=== PATIENT | male | born 1955 ===

== ENCOUNTER 2017-06-06 07:26 | Day surgery (SDC) | payer MEDICARE ==
[2017-06-06] MEDS ORDERED: Lactated Ringer's 500 ML IV ONE (07:59)
[2017-06-06] MEDS ORDERED: Propofol 10 mg/ml Inj (20 ML) ONE (09:30)
[2017-06-06 10:16] VITALS: BP 100/70; PULSE 69; RESP 15; TEMP 96.4; O2SAT 99
== END 2017-06-06 11:00 | disposition home or self-care (01) ==
LOC: H.ENDO 07:26
PROVIDERS: ATTEND Internal Medicine Gastroenterology
DX: K74.60 Unspecified cirrhosis of liver (principal); I85.11 Secondary esophageal varices with bleeding; K31.9 Disease of stomach and duodenum, unspecified; K26.9 Duodenal ulcer, unspecified as acute or chronic, without hemorrhage or perforation
CPT/HCPCS: 43235; J2001; J2704; J3010; J7120

== ENCOUNTER 2017-09-04 10:29 | Inpatient (IN) | payer MEDICARE, OTHER ==
[2017-09-04 10:36] VITALS: BMI 22.8
[2017-09-04] MEDS ORDERED: Iohexol 240 (50 ml) PO ONE (11:12)
[2017-09-04] MEDS ORDERED: Iohexol 240 (50 ml) ONE (11:27)
[2017-09-04] MEDS ORDERED: Sodium Chloride 0.9% 1,000 ML IV ONE (11:34)
--- NOTE | 2017-09-04 11:34 | ED PDOC ---
HPI: Abdomen Time Seen by Provider: 09/04/17 10:52 Chief Complaint (Nursing): Abdominal Pain History Per: Patient History/Exam Limitations: no limitations Onset/Duration Of Symptoms: Days (6), Gradual Current Symptoms Are (Timing): Still Present Severity: Moderate Location Of Pain/Discomfort: Diffuse Quality Of Discomfort: Dull, Aching Associated Symptoms: Fever, Nausea, Vomiting, Diarrhea. denies: Chills, Back Pain, Chest Pain, Constipation, Urinary Symptoms Exacerbating Factors: None Alleviating Factors: None Additional History Per: Patient Additional Complaint(s): C/o generalized abdl pain w/ vomiting and diarrhea x 6 days Past Medical History Reviewed: Historical Data, Nursing Documentation, Vital Signs Vital Signs: Last Vital Signs Temp 100 F H 09/04/17 10:53 Pulse 121 H 09/04/17 10:53 Resp 16 09/04/17 10:53 BP 112/77 09/04/17 10:53 Pulse Ox 96 09/04/17 13:53 - Medical History PMH: Depression, HIV Denies: Chronic Kidney Disease - Surgical History Surgical History: Endoscopy - Family History Family History: States: Unknown Family Hx - Living Arrangements Living Arrangements: With Family - Social History Current smoker - smoking cessation education provided: No - Home Medications Home Medications: Ambulatory Orders Medication Instructions Recorded Atovaquone [Mepron] 750 mg PO DAILY 06/06/17 Clonazepam [Klonopin] 1 mg PO DAILY 06/06/17 Darunavir Ethanolate [Prezista] 600 mg PO DAILY 06/06/17 Emtricitabine/Tenofovir Diso 1 tab PO DAILY 06/06/17 [Truvada 200 MG-300 MG] Escitalopram [Lexapro] 10 mg PO DAILY 06/06/17 Mirtazapine [Remeron Soltab] 45 mg PO DAILY 06/06/17 QUEtiapine [SEROquel XR] 150 mg PO DAILY 06/06/17 Ritonavir [Norvir] 100 mg PO DAILY 06/06/17 - Allergies Allergies/Adverse Reactions: Allergies Allergy/AdvReac Type Severity Reaction Status Date / Time No Known Allergies Allergy Verified 09/04/17 10:53 Review of Systems ROS Statement: Except As Marked, All Systems Reviewed And Found Negative Constitutional: Negative for: Fever, Chills Cardiovascular: Negative for: Chest Pain, Palpitations Respiratory: Negative for: Cough, Shortness of Breath Gastrointestinal: Positive for: Nausea, Vomiting, Abdominal Pain, Diarrhea. Negative for: Constipation, Melena, Hematochezia, Hematemesis Genitourinary Male: Negative for: Dysuria Skin: Negative for: Rash Neurological: Negative for: Weakness, Numbness Physical Exam - Reviewed Nursing Documentation Reviewed: Yes Vital Signs Reviewed: Yes - Physical Exam Appears: Positive for: Uncomfortable Head Exam: Positive for: ATRAUMATIC, NORMAL INSPECTION, NORMOCEPHALIC Eye Exam: Positive for: Normal appearance, EOMI, PERRL ENT: Positive for: Pharynx Is (clear,mmm). Negative for: Pharyngeal Erythema, Tonsillar Exudate Neck: Positive for: Normal, Painless ROM, Supple. Negative for: Decreased ROM, Limited ROM, Trachea Midline Cardiovascular/Chest: Positive for: Chest Non Tender, Tachycardia. Negative for : Edema, Gallop, Murmur, Bradycardia Respiratory: Positive for: Normal Breath Sounds. Negative for: Decreased Breath Sounds, Accessory Muscle Use, Crackles, Rales, Rhonchi, Stridor, Wheezing , Respiratory Distress Pulses-Radial (L): 2+ Pulses-Radial (R): 2+ Gastrointestinal/Abdominal: Positive for: Normal Exam, Bowel Sounds, Soft, Tenderness (mild diffuse). Negative for: Distended, Guarding, Rebound, Hernia, Asicites Male Genital Exam: Positive for: normal genitalia, normal prostate, other (chap by tech). Negative for: scrotum tenderness (R), scrotum tenderness (L), testicular tenderness (R), testicular tenderness (L) Back: Positive for: Normal Inspection. Negative for: L CVA Tenderness, R CVA Tenderness Extremity: Positive for: Normal ROM. Negative for: Tenderness, Pedal Edema Neurologic/Psych: Positive for: Alert, negative assembler II-XII, Oriented. Negative for: Motor/Sensory Deficits - Laboratory Results Result Diagrams: 09/04/17 11:37 09/04/17 11:37 - ECG ECG: Positive for: Interpreted By In ECG Rhythm: Positive for: Normal QRS, Normal ST Segment, Sinus Rhythm. Negative for: ST/T Changes Interpretation Of Abn EKG: no evidence of ischemia O2 Sat by Pulse Oximetry: 96 Pulse Ox Interpretation: Normal - Radiology X-Ray: Interpreted by In X-Ray Interpretation: No Acute Disease - Progress ED Course And Treament: PROCEDURE: CT scan abdomen and pelvis dated 09/04/2017 HISTORY: Diffuse abdominal pain and diarrhea COMPARISON: Comparison made with prior CT scan abdomen pelvis dated 06/06/2013. Correlation also made with prior abdominal ultrasound dated 04/05/2016 TECHNIQUE: Contiguous axial images of the abdomen and pelvis performed following oral contrast administration. IV contrast not administered per request on the. The study is therefore somewhat limited. . Coronal and Sagittal reformats generated. Radiation dose: Total exam DLP = 827.73 mGy-cm. This CT exam was performed using one or more of the following dose reduction techniques: Automated exposure control, adjustment of the mA and/or kV according to patient size, and/or use of iterative reconstruction technique. FINDINGS: LOWER THORAX: Unremarkable. LIVER: The liver exhibits normal size measuring approximately 15 cm in CC dimension. . The liver exhibits a slight nodular surface contour. ; rule out cirrhosis No definitive hepatic masses collections or calcifications seen on this noncontrast exam. GALLBLADDER AND BILE DUCTS: Gallbladder is physiologically distended. Tiny intraluminal gallbladder calculus. No pericholecystic fluid collections. PANCREAS: The pancreas appears slightly atrophic and fatty replaced. SPLEEN: Spleen remains massively enlarged measuring approximately 24cm cc x 16.5cm ap x 9.6cm t.. No obvious splenic mass collection or calcification. Clinic correlation with laboratory values recommended. . Numerous varices are seen within the upper abdomen adjacent to the stomach spleen and kidney. Findings are consistent with portal hypertension. Rule out cirrhosis. ADRENALS: There are no adrenal lesions. KIDNEYS AND URETERS: Kidneys demonstrate relatively symmetric size. No evidence of nephrolithiasis or hydronephrosis. . Mild non nonspecific infiltration changes seen in the perinephric fat. BLADDER: Urinary bladder is incompletely distended which may account for slight thick- walled appearance. Muscular hypertrophy presumably contributes. REPRODUCTIVE: The prostate gland measures approximately 3.7 cm in transverse dimension. Seminal vesicles unremarkable. APPENDIX: Normal-appearing appendix best seen on coronal sequence image number [id number]. No periappendiceal inflammatory changes. BOWEL: Evaluation of the bowel is somewhat limited due to incomplete opacification. As mentioned above, there is a moderate size hiatal hernia. Wall thickening of the distal esophagus that is likely due to protrusion gastric mucosa however possibility of esophagitis or other intrinsic/invasive wall lesion cannot be excluded. . Clinical correlation recommended. The visualized loops of small bowel exhibit normal contour and caliber. Note is made of fecalized content within the small bowel; rule out sequela of chronic constipation. . No evidence of acute mechanical small bowel obstruction with oral contrast material seen seen extending into the colon to the level of the rectosigmoid. . Name. There is narrowing of the distal descending colon and sigmoid colon with relative paucity of haustrations (pipe like configuration). Rule out sequela of chronic colitis. PERITONEUM: No evidence of of discrete loculated fluid collections. No free fluid or free intraperitoneal air seen. LYMPH NODES: There appear to be multiple small nonspecific retroperitoneal lymph nodes. Note that scattered lymph nodes in the upper abdomen cannot be completely excluded given the exuberant varices are present. VASCULATURE: No evidence of abdominal aortic or iliac artery aneurysm so far as can be seen. See above discussion for additional findings. BONES: Re- demonstrated are chronic appearing superior endplate deformities of the T10 , T12 and to a lesser degree T11 segments essentially unchanged allowing for differences patient positioning and slice placement technique. Minor multilevel degenerative spondylosis of the lower thoracic and lumbar spine. . Re- demonstrated is a sclerotic lesion within the right acetabulum unchanged ; which probably represents a bone island or osteoma OTHER FINDINGS: None. IMPRESSION: Re- demonstrated is massively enlarged spleen with what appears represent exuberant numerous varices in the upper abdomen. The liver exhibits a nodular surface contour. Collective findings are consistent with cirrhosis and portal hypertension however clinical correlation recommended to confirm. Cholelithiasis. Type slight narrowing of the distal descending and sigmoid colon; rule out sequela of chronic colitis. There is also fecalized small bowel content; findings may represent sequela of chronic constipation. Moderately large hiatal hernia with wall thickening of the distal esophagus likely due to protrusion of gastric mucosa however the possibility of esophagitis or other intrinsic/invasive wall lesion not excluded. Urinary bladder wall is somewhat thickened likely due to incomplete distention and muscular hypertrophy. Correlation with urinalysis recommended to exclude other pathology. Re-evaluation Time: 13:53 Condition: Improved Disposition - Clinical Impression Clinical Impression: Cholecystitis, Peritonitis, Thrombocytopenia - Patient ED Disposition Is Patient to be Admitted: No Counseled Patient/Family Regarding: Studies Performed, Diagnosis - Disposition Disposition Time: 13:00 Condition: STABLE Forms: [employer] (Mexican) - Pt Status Changed To: Hospital Disposition Of: Inpatient - Admit Certification Admit to Inpatient:: After my assessment, the patient will require hospitalization for at least two midnights. This is because of the severity of symptoms shown, intensity of services needed, and/or the medical risk in this patient being treated as an outpatient. - POA Present On Arrival: None
[2017-09-04 11:42] LABS: BASO % 0.2 % (0.0-2.0); EOS % 0.7 % (0.0-4.0); HEMATOCRIT 34.1 % (35.0-51.0); LYMPH # 0.5 K/uL (1.0-4.3); LYMPH % 16.6 % (20.0-40.0); MEAN CELL VOLUME 76.1 fl (80.0-94.0); MEAN CORPUSCULAR HEMOGLOBIN 24.8 pg (27.0-31.0); MEAN CORPUSCULAR HGB CONC 32.6 g/dL (33.0-37.0); MEAN PLATELET VOLUME 9.5 fl (7.2-11.7); MONO # 0.3 K/uL (0.0-0.8); MONO % 10.8 % (0.0-10.0); NEUT # 2.1 K/uL (1.8-7.0); NEUT % 71.7 % (50.0-75.0); NRBC % 0.1 % (0.0-0.0); RED CELL DISTRIBUTION WIDTH 16.6 % (11.5-14.5); WHITE BLOOD COUNT 2.9 K/uL (4.8-10.8)
[2017-09-04 11:56] LABS: ALKALINE PHOSPHATASE 77 U/L (38-126); ALT/SGPT 40 U/L (21-72); AMYLASE 212 U/L (30-110); AST/SGOT 41 U/L (17-59); BILIRUBIN,TOTAL 1.3 mg/dl (0.2-1.3); BLOOD UREA NITROGEN 24 mg/dl (9-20); CALCIUM 8.1 mg/dL (8.4-10.2); CARBON DIOXIDE 23 mmol/L (22-30); CHLORIDE 106 mmol/L (98-107); GFR AFRICAN-AMERICAN > 60; GLUCOSE,RANDOM 123 mg/dL (75-110); LIPASE 322 U/L (23-300); POTASSIUM 4.4 MMOL/L (3.6-5.0); SODIUM 139 mmol/l (132-148); TOTAL PROTEIN 8.2 G/DL (6.3-8.2)
[2017-09-04 12:06] LABS: ALB/GLOB RATIO 0.7 (1.0-2.1)
[2017-09-04 12:27] LABS: RBC URINE 113 /hpf (0-3); URINE BACTERIA MOD (<OCC); URINE BILIRUBIN NEGATIVE (NEGATIVE); URINE BLOOD LARGE (NEGATIVE); URINE COLOR AMBER (YELLOW); URINE GLUCOSE (UA) NEG (Normal); URINE KETONE NEGATIVE (NEGATIVE); URINE LEUKOCYTE ESTERASE LARGE Leu/uL (Negative); URINE PROTEIN 100 mg/dL (NEGATIVE); URINE UROBILINOGEN 0.2-1.0 mg/dL (0.2-1.0); WBC URINE 1987 /hpf (0-5)
[2017-09-04] MEDS ORDERED: Piperacillin/Tazobact 3.375 GM in Sodium Chloride 0.9% 100 ML IVPB STA (12:36)
--- NOTE | 2017-09-04 12:51 | RAD ---
PROCEDURE: CHEST RADIOGRAPH, 1 VIEW HISTORY: fever COMPARISON: 03/07/2017 FINDINGS: LUNGS: Clear. PLEURA: No pneumothorax or pleural fluid seen. CARDIOVASCULAR: No radiographic findings to suggest acute or significant cardiovascular disease. OSSEOUS STRUCTURES: No significant abnormalities. VISUALIZED UPPER ABDOMEN: Normal. OTHER FINDINGS: None. IMPRESSION: No active disease. No acute/significant interval changes. Concordant results with the preliminary interpretation rendered by the emergency department physician procedure.
--- NOTE | 2017-09-04 13:36 | CT ---
PROCEDURE: CT scan abdomen and pelvis dated 09/04/2017 HISTORY: Diffuse abdominal pain and diarrhea COMPARISON: Comparison made with prior CT scan abdomen pelvis dated 06/06/2013. Correlation also made with prior abdominal ultrasound dated 04/05/2016 TECHNIQUE: Contiguous axial images of the abdomen and pelvis performed following oral contrast administration. IV contrast not administered per request on the. The study is therefore somewhat limited. . Coronal and Sagittal reformats generated. Radiation dose: Total exam DLP = 827.73 mGy-cm. This CT exam was performed using one or more of the following dose reduction techniques: Automated exposure control, adjustment of the mA and/or kV according to patient size, and/or use of iterative reconstruction technique. FINDINGS: LOWER THORAX: Unremarkable. LIVER: The liver exhibits normal size measuring approximately 15 cm in CC dimension. . The liver exhibits a slight nodular surface contour. ; rule out cirrhosis No definitive hepatic masses collections or calcifications seen on this noncontrast exam. GALLBLADDER AND BILE DUCTS: Gallbladder is physiologically distended. Tiny intraluminal gallbladder calculus. No pericholecystic fluid collections. PANCREAS: The pancreas appears slightly atrophic and fatty replaced. SPLEEN: Spleen remains massively enlarged measuring approximately 24cm cc x 16.5cm ap x 9.6cm t.. No obvious splenic mass collection or calcification. Clinic correlation with laboratory values recommended. . Numerous varices are seen within the upper abdomen adjacent to the stomach spleen and kidney. Findings are consistent with portal hypertension. Rule out cirrhosis. ADRENALS: There are no adrenal lesions. KIDNEYS AND URETERS: Kidneys demonstrate relatively symmetric size. No evidence of nephrolithiasis or hydronephrosis. . Mild non nonspecific infiltration changes seen in the perinephric fat. BLADDER: Urinary bladder is incompletely distended which may account for slight thick-walled appearance. Muscular hypertrophy presumably contributes. REPRODUCTIVE: The prostate gland measures approximately 3.7 cm in transverse dimension. Seminal vesicles unremarkable. APPENDIX: Normal-appearing appendix best seen on coronal sequence image number [id number]. No periappendiceal inflammatory changes. BOWEL: Evaluation of the bowel is somewhat limited due to incomplete opacification. As mentioned above, there is a moderate size hiatal hernia. Wall thickening of the distal esophagus that is likely due to protrusion gastric mucosa however possibility of esophagitis or other intrinsic/invasive wall lesion cannot be excluded. . Clinical correlation recommended. The visualized loops of small bowel exhibit normal contour and caliber. Note is made of fecalized content within the small bowel; rule out sequela of chronic constipation. . No evidence of acute mechanical small bowel obstruction with oral contrast material seen seen extending into the colon to the level of the rectosigmoid. . Name. There is narrowing of the distal descending colon and sigmoid colon with relative paucity of haustrations (pipe like configuration). Rule out sequela of chronic colitis. PERITONEUM: No evidence of of discrete loculated fluid collections. No free fluid or free intraperitoneal air seen. LYMPH NODES: There appear to be multiple small nonspecific retroperitoneal lymph nodes. Note that scattered lymph nodes in the upper abdomen cannot be completely excluded given the exuberant varices are present. VASCULATURE: No evidence of abdominal aortic or iliac artery aneurysm so far as can be seen. See above discussion for additional findings. BONES: Re- demonstrated are chronic appearing superior endplate deformities of the T10, T12 and to a lesser degree T11 segments essentially unchanged allowing for differences patient positioning and slice placement technique. Minor multilevel degenerative spondylosis of the lower thoracic and lumbar spine. . Re- demonstrated is a sclerotic lesion within the right acetabulum unchanged ; which probably represents a bone island or osteoma OTHER FINDINGS: None. IMPRESSION: Re- demonstrated is massively enlarged spleen with what appears represent exuberant numerous varices in the upper abdomen. The liver exhibits a nodular surface contour. Collective findings are consistent with cirrhosis and portal hypertension however clinical correlation recommended to confirm. Cholelithiasis. Type slight narrowing of the distal descending and sigmoid colon; rule out sequela of chronic colitis. There is also fecalized small bowel content; findings may represent sequela of chronic constipation. Moderately large hiatal hernia with wall thickening of the distal esophagus likely due to protrusion of gastric mucosa however the possibility of esophagitis or other intrinsic/invasive wall lesion not excluded. Urinary bladder wall is somewhat thickened likely due to incomplete distention and muscular hypertrophy. Correlation with urinalysis recommended to exclude other pathology.
--- NOTE | 2017-09-04 14:42 | US ---
HISTORY: Right upper quadrant abdominal pain and fever. COMPARISON: 04/05/2016 abdominal ultrasound September 04, 2017. CT abdomen and pelvis TECHNIQUE: Sonographic evaluation of the right upper quadrant of the abdomen. FINDINGS: LIVER: Measures 13.8 cm in length. Patent portal vein. Portal venous flow: Hepatopetal. Unremarkeable echogenicity of the liver parenchyma. Nodular contour without focal mass findings better seen on concurrent CT scan. GALLBLADDER: Unremarkable. No gallstones. COMMON BILE DUCT: Measures 3.4 mm. No stones. No dilatation. PANCREAS: Obscured by overlying bowel gas. Non diagnostic assessment of the pancreas RIGHT KIDNEY: Measures 4.4 x 10.2 cm in length. Normal echogenicity. No calculus, mass, or hydronephrosis. AORTA: No aneurysmal dilatation. IVC: Unremarkable. OTHER FINDINGS: None . IMPRESSION: No acute findings related to/accounting for the clinical presentation. No significant interval change compared to the prior examination(s). Limitations of the current examination: Nondiagnostic assessment of the pancreas.
--- NOTE | 2017-09-04 14:57 | CP.PCM.HP ---
History of Present Illness - History of Present Illness History of Present Illness: PMD Dr Roth([facility]) Hx taken from patient and previous records 61 y/o M with PMhx of HIV, liver cirrhosis, esophageal varices and major depression presents to ED c/o diarrhea and fever for the past 5-6 days. Diarrhea are NBNM, watery, related to meals, fever noticed for the first time 2 days ago(101). Patient denies recent traveling, dysuria, abd pain. He also c/o vomiting NBNB and occasional nausea and headache. States he has been taking all his meds, including HIV meds and has not taken any new medications recently. Denies cough, SOB, CP, palpitations, melena, hematochezia. Admits Hx of drug abuse in the past and social drinker. Denies gum bleeding, skin rashes, ecchymosis, petechiae. Patient lives alone. Last CD4 155 in 05/2017, undetectable viral load. ED course: VS: Temp 101, HR 100. Rest WNL CBC, CMP, BCx, UA, C.Diff, EKG, Lipase, Amylase, CT abd pelvis, Abd US. IV fluids, Ibuprofen, Zosyn x1. PMHx: HIV, Liver cirrhosis SHx: Former drug abuser and socially ETOH SxHx: Denies FHx: Negative/Unknown Present on Admission - Present on Admission Any Indicators Present on Admission: No Review of Systems - Review of Systems All systems: reviewed and no additional remarkable complaints except - Constitutional Constitutional: Fever - Gastrointestinal Gastrointestinal: Diarrhea, Nausea, Vomiting Past Patient History - Infectious Disease Hx of Infectious Diseases: None - Past Medical History & Family History Past Medical History?: Yes - Past Social History Smoking Status: Never Smoked Alcohol: None Drugs: Denies Home Situation {Lives}: Alone - CARDIAC Hx Cardiac Disorders: No - PULMONARY Hx Respiratory Disorders: No - NEUROLOGICAL Hx Neurological Disorder: No - HEENT Hx HEENT Problems: No - RENAL Hx Chronic Kidney Disease: No - ENDOCRINE/METABOLIC Hx Endocrine Disorders: No - HEMATOLOGICAL/ONCOLOGICAL Hx Blood Disorders: Yes - MUSCULOSKELETAL/RHEUMATOLOGICAL Hx Musculoskeletal Disorders: No - GASTROINTESTINAL Hx Gastrointestinal Disorders: Yes Hx Esophageal Varices: Yes - GENITOURINARY/GYNECOLOGICAL Hx Genitourinary Disorders: No - PSYCHIATRIC Hx Psychophysiologic Disorder: Yes - SURGICAL HISTORY Hx Surgeries: No - ANESTHESIA Hx Anesthesia: No Hx Anesthesia Reactions: No Hx Malignant Hyperthermia: No Meds Allergies/Adverse Reactions: Allergies Allergy/AdvReac Type Severity Reaction Status Date / Time No Known Allergies Allergy Verified 09/04/17 10:53 Physical Exam - Constitutional Appears: Non-toxic, Chronically Ill - Eye Exam Eye Exam: EOMI, PERRL - ENT Exam ENT Exam: Mucous Membranes Moist - Respiratory Exam Respiratory Exam: Clear to Auscultation Bilateral, NORMAL BREATHING PATTERN. absent: Rales, Wheezes, Respiratory Distress - Cardiovascular Exam Cardiovascular Exam: REGULAR RHYTHM, +S1, +S2. absent: Gallop, Systolic Murmur - GI/Abdominal Exam GI & Abdominal Exam: Organomegaly, Soft. absent: Distended, Guarding, Rebound, Tenderness - Extremities Exam Extremities exam: Positive for: normal capillary refill, normal inspection. Negative for: calf tenderness, pedal edema - Back Exam Back exam: absent: CVA tenderness (L), CVA tenderness (R) - Neurological Exam Neurological exam: Alert, Normal Gait, Oriented x3 - Psychiatric Exam Psychiatric exam: Normal Affect, Normal Mood - Skin Skin Exam: Pallor, Warm Results - Vital Signs Recent Vital Signs: Last Vital Signs Temp 101.1 F H 09/04/17 14:42 Pulse 100 H 09/04/17 14:42 Resp 20 09/04/17 14:42 BP 114/71 09/04/17 14:42 Pulse Ox 96 09/04/17 14:31 - Labs Result Diagrams: 09/04/17 11:37 09/04/17 11:37 Labs: Laboratory Results - last 24 hr 09/04/17 09/04/17 09/04/17 11:37 11:37 11:37 WBC 2.9 L D RBC 4.49 Hgb 11.1 L Hct 34.1 L MCV 76.1 L MCH 24.8 L MCHC 32.6 L RDW 16.6 H Plt Count 19 L* D MPV 9.5 Neut % (Auto) 71.7 Lymph % (Auto) 16.6 L Randall % (Auto) 10.8 H Eos % (Auto) 0.7 Baso % (Auto) 0.2 Neut # 2.1 Lymph # 0.5 L Randall # 0.3 Eos # 0.0 Baso # 0.0 Sodium 139 Potassium 4.4 Chloride 106 Carbon Dioxide 23 Anion Gap 14 BUN 24 H Creatinine 1.4 Est GFR ( Amer) > 60 Est GFR (Non-Af Amer) 52 Random Glucose 123 H Lactic Acid 1.6 Calcium 8.1 L Total Bilirubin 1.3 AST 41 ALT 40 Alkaline Phosphatase 77 Troponin I < 0.0120 Total Protein 8.2 Albumin 3.4 L Globulin 4.8 H Albumin/Globulin Ratio 0.7 L Amylase 212 H Lipase 322 H Urine Color Urine Clarity Urine pH Ur Specific [place] Urine Protein Urine Glucose (UA) Urine Ketones Urine Blood Urine Nitrate Urine Bilirubin Urine Urobilinogen Ur Leukocyte Esterase Urine RBC (Auto) Urine Microscopic WBC Urine Bacteria 09/04/17 11:54 WBC RBC Hgb Hct MCV MCH MCHC RDW Plt Count MPV Neut % (Auto) Lymph % (Auto) Randall % (Auto) Eos % (Auto) Baso % (Auto) Neut # Lymph # Randall # Eos # Baso # Sodium Potassium Chloride Carbon Dioxide Anion Gap BUN Creatinine Est GFR ( Amer) Est GFR (Non-Af Amer) Random Glucose Lactic Acid Calcium Total Bilirubin AST ALT Alkaline Phosphatase Troponin I Total Protein Albumin Globulin Albumin/Globulin Ratio Amylase Lipase Urine Color Nata Urine Clarity Turbid Urine pH 6.0 Ur Specific [place] 1.017 Urine Protein 100 Urine Glucose (UA) Neg Urine Ketones Negative Urine Blood Large Urine Nitrate Positive H Urine Bilirubin Negative Urine Urobilinogen 0.2-1.0 Ur Leukocyte Esterase Large Urine RBC (Auto) 113 H Urine Microscopic WBC 1987 H Urine Bacteria Mod H Assessment & Plan - Assessment and Plan (Free Text) Assessment: 61 y/o M with Hx of HIV and liver cirrhosis presents for gastroenteritis and UTI. Gastroenteritis, acute -Diarrhea, fever, vomiting -Viral vs UTI -C.Diff neg -F/U Stool Cx, O&P, Stool WBC, Stool Giardia Ag, Cryptosporidium -S/P IV fluids and Zosyn at ED -Unlikely SBP(No abd pain, no AMS, no ascitis on CT) -Lipase, amylase mildly elevated -CT: Chronic colitis?, Liver cirrhosis, Hiatal hernia, tiny gallstones, no ascitis. (Please see full report) -C/W IV fluids and Zofran IV PRN -Start hepatic diet as tolerated -GI consulted. Will f/u recs UTI, suspected -UA positive for WBC, RBC, Nitrates and LE -Fever -Denies urinary symptoms -Could be the cause of gastroenteritis -F/U Ucx, BCx -S/P Zosyn -Start Rocephin 1g IV daily Liver cirrhosis w/esophageal varices and portal hypertension -Chronic -Cryptogenic? -Hep C AB neg -Denies HX of heavy ETOH -Start Nadolol 40mg daily. Patient was supposed to be taking it as per PCP recs. -F/U GI recs HIV, chronic -C/W home meds -Last CD4 05/2017= 155 with low viral load -C/W Atovaquone for PCP prophylaxis -F/U CD4, viral load Pancytopenia -Chronic -Plts 19, WBC 2.9, Hgb 11.1 -Poss due to liver cirrhosis/Splenomegaly -No active bleeding -Hem-Onc recs consulted. Will f/u recs Prophylaxis -SCDs for now Full code
[2017-09-04] MEDS ORDERED: Pneumococcal 23-Valent Vaccine IM ONE (15:25)
[2017-09-04] MEDS ORDERED: Influenza Vaccine 18yr & older 0.5 ML/45 MCG SYR IM ONE (15:29)
[2017-09-04] MEDS: cefTRIAXone IV 1 gm in Dextros 50 ML IVPB SCH (18:33)
[2017-09-04] MEDS: Sodium Chloride 0.9% 1,000 ML IV SCH (20:53)
--- NOTE | 2017-09-04 23:19 | CP.PCM.CON ---
<CurtTawana - Last Filed: 09/04/17 23:23> History of Present Illness - History of Present Illness History of Present Illness: PGY4 Initial GI Consult Sandip Akhtar is a 61M w/ hx of HIV on HAART, cirrhosis who presented to the ED due to abdominal pain, nausea, vomiting, and diarrhea. He c/o diarrhea and fever for the past 5-6 days. Diarrhea are NBNM, watery, related to meals, fever noticed for the first time 2 days ago(101). Patient denies recent traveling, consumption of undercooked meat or sick contacts at home. He was found to have PLT ~19, but denies any hematemesis, coffee-ground emesis, melena, and BRBPR. He was initially seen at Dr. Landers's office for evaluation of cirrhosis. At the time, he denied any recent hospitalizations. A CT A/P was done and revealed esophageal varices. Pt denied any hx of Hep C or ETOH use. Pt reported had an EGD and colonoscopy at [facility] and had subsequent esophageal banding. His EGD was repeated 2 months ago and revealed Grade 3 esophageal varicies, but at the time banding was not attempted due to low platlets. He refused to get any platlet transfusions and therefore bandings. He was of sound mind and alert and oriented x3. He was warned of the risk and still refused any further treatment. He had some previous evaluation at [facility], but stopped following up because of the distance. He was prescribed propanolol and diuretics as an oupt, but refused to take them. PMHx: HIV on HAART, Cirrhosis PSHX: nine Family Hx: denies any colon ca Social Hx: + smoking, previous social use of ETOH, previous hx of IV drug use Endoscopy Hx: EGD 2017: grade 3 varicies, 2014 [facility]: EGS colonscopy: EGD s/p esophageal varices banding and colonoscopy was poor prep Past Patient History - Infectious Disease Hx of Infectious Diseases: None - Past Medical History & Family History Past Medical History?: Yes - Past Social History Smoking Status: Never Smoked Alcohol: None Drugs: Denies Home Situation {Lives}: Alone - CARDIAC Hx Cardiac Disorders: No - PULMONARY Hx Respiratory Disorders: No - NEUROLOGICAL Hx Neurological Disorder: No - HEENT Hx HEENT Problems: No - RENAL Hx Chronic Kidney Disease: No - ENDOCRINE/METABOLIC Hx Endocrine Disorders: No - HEMATOLOGICAL/ONCOLOGICAL Hx Blood Disorders: Yes - INTEGUMENTARY Hx Dermatological Problems: No - MUSCULOSKELETAL/RHEUMATOLOGICAL Hx Musculoskeletal Disorders: No - GASTROINTESTINAL Hx Gastrointestinal Disorders: Yes Hx Esophageal Varices: Yes - GENITOURINARY/GYNECOLOGICAL Hx Genitourinary Disorders: No - PSYCHIATRIC Hx Psychophysiologic Disorder: Yes - SURGICAL HISTORY Hx Surgeries: No - ANESTHESIA Hx Anesthesia: No Hx Anesthesia Reactions: No Hx Malignant Hyperthermia: No Meds Allergies/Adverse Reactions: Allergies Allergy/AdvReac Type Severity Reaction Status Date / Time No Known Allergies Allergy Verified 09/04/17 10:53 - Medications Medications: Current Medications Acetaminophen (Tylenol 325mg Tab) 650 mg PO Q8 PRN PRN Reason: Fever >100.4 F Atovaquone (Mepron) 750 mg PO DAILY [facility] Clonazepam (Klonopin) 1 mg PO DAILY [facility] Darunavir (Prezista) 600 mg PO DAILY [facility] Emtricitabine/Tenofovir (Truvada 200 Mg-300 Mg) 1 tab PO DAILY [facility] Escitalopram Oxalate (Lexapro) 10 mg PO DAILY [facility] Home Med (Quetiapine [Seroquel Xr]) 150 mg PO DAILY [facility] Sodium Chloride (Sodium Chloride 0.9%) 1,000 mls @ 100 mls/hr IV .Q10H [facility] Last Admin: 09/04/17 20:53 Dose: 100 mls/hr Ceftriaxone Sodium (Rocephin Iv 1 Gm Duplex) 50 mls @ 50 mls/hr IVPB DAILY JESS PRN Reason: Protocol Last Admin: 09/04/17 18:33 Dose: 50 mls/hr Mirtazapine (Remeron) 45 mg PO DAILY [facility] Nadolol (Corgard) 40 mg PO DAILY [facility] Ondansetron HCl (Zofran Inj) 4 mg IVP Q6 PRN PRN Reason: Nausea/Vomiting Ritonavir (Norvir) 100 mg PO DAILY [facility] Physical Exam - Constitutional Appears: Well, No Acute Distress - Head Exam Head Exam: ATRAUMATIC, NORMOCEPHALIC - Eye Exam Eye Exam: Normal appearance - ENT Exam ENT Exam: Mucous Membranes Moist - Respiratory Exam Respiratory Exam: Clear to Auscultation Bilateral, NORMAL BREATHING PATTERN. absent: Rales, Rhonchi, Wheezes, Respiratory Distress - Cardiovascular Exam Cardiovascular Exam: REGULAR RHYTHM, +S1, +S2 - GI/Abdominal Exam GI & Abdominal Exam: Normal Bowel Sounds, Soft. absent: Firm, Guarding, Organomegaly, Rebound, Rigid - Neurological Exam Neurological exam: Alert, Oriented x3 - Psychiatric Exam Psychiatric exam: Normal Affect, Normal Mood - Skin Skin Exam: Dry, Intact, Normal Color, Warm Results - Vital Signs Recent Vital Signs: Last Vital Signs Temp 98.8 F 09/04/17 16:51 Pulse 92 H 09/04/17 16:51 Resp 18 09/04/17 16:51 BP 100/67 09/04/17 16:51 Pulse Ox 97 09/04/17 16:51 - Labs Result Diagrams: 09/04/17 11:37 09/04/17 11:37 Labs: Laboratory Results - last 24 hr 09/04/17 09/04/17 09/04/17 11:37 11:37 11:37 WBC 2.9 L D RBC 4.49 Hgb 11.1 L Hct 34.1 L MCV 76.1 L MCH 24.8 L MCHC 32.6 L RDW 16.6 H Plt Count 19 L* D MPV 9.5 Neut % (Auto) 71.7 Lymph % (Auto) 16.6 L [place] % (Auto) 10.8 H Eos % (Auto) 0.7 Baso % (Auto) 0.2 Neut # 2.1 Lymph # 0.5 L [place] # 0.3 Eos # 0.0 Baso # 0.0 Sodium 139 Potassium 4.4 Chloride 106 Carbon Dioxide 23 Anion Gap 14 BUN 24 H Creatinine 1.4 Est GFR ( Amer) > 60 Est GFR (Non-Af Amer) 52 Random Glucose 123 H Lactic Acid 1.6 Calcium 8.1 L Total Bilirubin 1.3 AST 41 ALT 40 Alkaline Phosphatase 77 Troponin I < 0.0120 Total Protein 8.2 Albumin 3.4 L Globulin 4.8 H Albumin/Globulin Ratio 0.7 L Amylase 212 H Lipase 322 H Urine Color Urine Clarity Urine pH Ur Specific [place] Urine Protein Urine Glucose (UA) Urine Ketones Urine Blood Urine Nitrate Urine Bilirubin Urine Urobilinogen Ur Leukocyte Esterase Urine RBC (Auto) Urine Microscopic WBC Urine Bacteria C. difficile Ag & Toxin 09/04/17 09/04/17 11:54 13:02 WBC RBC Hgb Hct MCV MCH MCHC RDW Plt Count MPV Neut % (Auto) Lymph % (Auto) [place] % (Auto) Eos % (Auto) Baso % (Auto) Neut # Lymph # [place] # Eos # Baso # Sodium Potassium Chloride Carbon Dioxide Anion Gap BUN Creatinine Est GFR ( Amer) Est GFR (Non-Af Amer) Random Glucose Lactic Acid Calcium Total Bilirubin AST ALT Alkaline Phosphatase Troponin I Total Protein Albumin Globulin Albumin/Globulin Ratio Amylase Lipase Urine Color [place] Urine Clarity Turbid Urine pH 6.0 Ur Specific [place] 1.017 Urine Protein 100 Urine Glucose (UA) Neg Urine Ketones Negative Urine Blood Large Urine Nitrate Positive H Urine Bilirubin Negative Urine Urobilinogen 0.2-1.0 Ur Leukocyte Esterase Large Urine RBC (Auto) 113 H Urine Microscopic WBC 1987 H Urine Bacteria Mod H C. difficile Ag & Toxin Negative Assessment & Plan - Assessment and Plan (Free Text) Assessment: Sandip Akhtar is a 61M w/ hx of esophageal varicies, portal HTN, Cirrhosis, and HIV on HAART who presents to the ER due to nausea, vomiting, and diarrhea. Gastroenteritis, likely viral, r/o c.diff Acute on Chronic Thrombocytopenia likely 2/2 above and underlying cirrhosis Cryptogenic Cirrhosis Esophageal Varices Portal HTN 2/2 cirrhosis Plan: - Pt wants a second opinion -he does not wish to get platlet transfusions -He states that he would like a "2nd" and "3rd" opinion from other GI physcians -will send for infectous stool w/u -tolerating regular diet -contiue IV fluids -monitor PLT count -will need EGD w/ banding in christine future after plt transfusion to count of 50 -recommend BB chauncey and diuretics as oupt -will sign off, as pt does not want our help D/W Dr. Landers <Liz Landers MD - Last Filed: 09/05/17 10:50> Meds - Medications Medications: Current Medications Acetaminophen (Tylenol 325mg Tab) 650 mg PO Q8 PRN PRN Reason: Fever >100.4 F Atovaquone (Mepron) 750 mg PO DAILY [facility] Last Admin: 09/05/17 08:33 Dose: 750 mg Clonazepam (Klonopin) 1 mg PO DAILY [facility] Last Admin: 09/05/17 08:36 Dose: 1 mg Darunavir (Prezista) 600 mg PO DAILY [facility] Last Admin: 09/05/17 08:33 Dose: 600 mg Emtricitabine/Tenofovir (Truvada 200 Mg-300 Mg) 1 tab PO DAILY [facility] Last Admin: 09/05/17 08:33 Dose: 1 tab Escitalopram Oxalate (Lexapro) 10 mg PO DAILY [facility] Last Admin: 09/05/17 08:33 Dose: 10 mg Home Med (Quetiapine [Seroquel Xr]) 150 mg PO DAILY [facility] Sodium Chloride (Sodium Chloride 0.9%) 1,000 mls @ 100 mls/hr IV .Q10H [facility] Last Admin: 09/05/17 02:52 Dose: Not Given Ceftriaxone Sodium (Rocephin Iv 1 Gm Duplex) 50 mls @ 50 mls/hr IVPB DAILY [facility] PRN Reason: Protocol Last Admin: 09/04/17 18:33 Dose: 50 mls/hr Mirtazapine (Remeron) 45 mg PO DAILY [facility] Last Admin: 09/05/17 08:34 Dose: 45 mg Nadolol (Corgard) 40 mg PO DAILY [facility] Last Admin: 09/05/17 08:33 Dose: 40 mg Ondansetron HCl (Zofran Inj) 4 mg IVP Q6 PRN PRN Reason: Nausea/Vomiting Ritonavir (Norvir) 100 mg PO DAILY [facility] Last Admin: 09/05/17 08:33 Dose: 100 mg Results - Vital Signs Recent Vital Signs: Last Vital Signs Temp 100.1 F H 09/05/17 07:30 Pulse 92 H 09/05/17 08:33 Resp 20 09/05/17 07:30 BP 104/69 09/05/17 08:33 Pulse Ox 96 09/05/17 07:30 - Labs Result Diagrams: 09/05/17 05:15 09/05/17 05:15 Labs: Laboratory Results - last 24 hr 09/04/17 09/04/17 09/04/17 11:37 11:37 11:37 WBC 2.9 L D RBC 4.49 Hgb 11.1 L Hct 34.1 L MCV 76.1 L MCH 24.8 L MCHC 32.6 L RDW 16.6 H Plt Count 19 L* D MPV 9.5 Neut % (Auto) 71.7 Lymph % (Auto) 16.6 L [place] % (Auto) 10.8 H Eos % (Auto) 0.7 Baso % (Auto) 0.2 Neut # 2.1 Lymph # 0.5 L [place] # 0.3 Eos # 0.0 Baso # 0.0 Neutrophils % (Manual) Lymphocytes % (Manual) Monocytes % (Manual) Plasma Cell % (Manual) Platelet Estimate Large Platelets Hypochromasia (manual) Anisocytosis (manual) Ovalocytes PT INR APTT Sodium 139 Potassium 4.4 Chloride 106 Carbon Dioxide 23 Anion Gap 14 BUN 24 H Creatinine 1.4 Est GFR ( Amer) > 60 Est GFR (Non-Af Amer) 52 Random Glucose 123 H Lactic Acid 1.6 Calcium 8.1 L Total Bilirubin 1.3 AST 41 ALT 40 Alkaline Phosphatase 77 Troponin I < 0.0120 Total Protein 8.2 Albumin 3.4 L Globulin 4.8 H Albumin/Globulin Ratio 0.7 L Amylase 212 H Lipase 322 H Urine Color Urine Clarity Urine pH Ur Specific [place] Urine Protein Urine Glucose (UA) Urine Ketones Urine Blood Urine Nitrate Urine Bilirubin Urine Urobilinogen Ur Leukocyte Esterase Urine RBC (Auto) Urine Microscopic WBC Urine Bacteria C. difficile Ag & Toxin 09/04/17 09/04/17 09/05/17 11:54 13:02 05:15 WBC 2.7 L RBC 4.06 L Hgb 9.9 L Hct 31.0 L MCV 76.5 L MCH 24.3 L MCHC 31.8 L RDW 16.8 H Plt Count 19 L* MPV 10.9 Neut % (Auto) 71.8 Lymph % (Auto) 16.7 L [place] % (Auto) 10.1 H Eos % (Auto) 1.0 Baso % (Auto) 0.4 Neut # 1.9 Lymph # 0.4 L [place] # 0.3 Eos # 0.0 Baso # 0.0 Neutrophils % (Manual) 72 Lymphocytes % (Manual) 16 L Monocytes % (Manual) 12 H Plasma Cell % (Manual) Platelet Estimate Decreased L Large Platelets Present Hypochromasia (manual) Slight Anisocytosis (manual) Slight Ovalocytes Slight PT INR APTT Sodium Potassium Chloride Carbon Dioxide Anion Gap BUN Creatinine Est GFR ( Amer) Est GFR (Non-Af Amer) Random Glucose Lactic Acid Calcium Total Bilirubin AST ALT Alkaline Phosphatase Troponin I Total Protein Albumin Globulin Albumin/Globulin Ratio Amylase Lipase Urine Color [place] Urine Clarity Turbid Urine pH 6.0 Ur Specific [place] 1.017 Urine Protein 100 Urine Glucose (UA) Neg Urine Ketones Negative Urine Blood Large Urine Nitrate Positive H Urine Bilirubin Negative Urine Urobilinogen 0.2-1.0 Ur Leukocyte Esterase Large Urine RBC (Auto) 113 H Urine Microscopic WBC 1987 H Urine Bacteria Mod H C. difficile Ag & Toxin Negative 09/05/17 09/05/17 05:15 05:15 WBC RBC Hgb Hct MCV MCH MCHC RDW Plt Count MPV Neut % (Auto) Lymph % (Auto) [place] % (Auto) Eos % (Auto) Baso % (Auto) Neut # Lymph # [place] # Eos # Baso # Neutrophils % (Manual) Lymphocytes % (Manual) Monocytes % (Manual) Plasma Cell % (Manual) Platelet Estimate Large Platelets Hypochromasia (manual) Anisocytosis (manual) Ovalocytes PT 16.1 H INR 1.4 H APTT 53.2 H Sodium 139 Potassium 4.1 Chloride 109 H Carbon Dioxide 23 Anion Gap 11 BUN 21 H Creatinine 1.3 Est GFR ( Amer) > 60 Est GFR (Non-Af Amer) 57 Random Glucose 111 H Lactic Acid Calcium 7.3 L Total Bilirubin 0.9 AST 39 ALT 38 Alkaline Phosphatase 70 Troponin I Total Protein 7.4 Albumin 2.9 L Globulin 4.5 H Albumin/Globulin Ratio 0.7 L Amylase Lipase Urine Color Urine Clarity Urine pH Ur Specific [place] Urine Protein Urine Glucose (UA) Urine Ketones Urine Blood Urine Nitrate Urine Bilirubin Urine Urobilinogen Ur Leukocyte Esterase Urine RBC (Auto) Urine Microscopic WBC Urine Bacteria C. difficile Ag & Toxin Attending/Attestation - Attestation I have personally seen and examined this patient.: Yes I have fully participated in the care of the patient.: Yes I have reviewed all pertinent clinical information: Yes Notes (Text): 09/05/17 10:47 Patient seen late last night. This note is from last night assessment. This is a 61M w/ hx of esophageal varicies, portal HTN, Cirrhosis, and HIV on HAART who presents to the ER due to nausea, vomiting, and diarrhea which has resolved. He has severe portal HTN and hence low platelets and anemia. He had diagnostic EGd last month that showed large varices which were not banded due to thrombocytopenia. patient till now is refusing platelets transfusion and wants second opinion. I did reiterate that he is very high risk for bleeding due to varices that can lead to decompensation and . Patient has capacity to make decisions.
[2017-09-05] MEDS: Sodium Chloride 0.9% 1,000 ML IV SCH ×2 (02:52→22:17)
[2017-09-05 06:46] LABS: ALKALINE PHOSPHATASE 70 U/L (38-126); ALT/SGPT 38 U/L (21-72); AST/SGOT 39 U/L (17-59); BASO % 0.4 % (0.0-2.0); BILIRUBIN,TOTAL 0.9 mg/dl (0.2-1.3); BLOOD UREA NITROGEN 21 mg/dl (9-20); CALCIUM 7.3 mg/dL (8.4-10.2); CARBON DIOXIDE 23 mmol/L (22-30); CHLORIDE 109 mmol/L (98-107); GFR AFRICAN-AMERICAN > 60; GLUCOSE,RANDOM 111 mg/dL (75-110); LYMPH # 0.4 K/uL (1.0-4.3); LYMPH % 16.7 % (20.0-40.0); MEAN CELL VOLUME 76.5 fl (80.0-94.0); MEAN CORPUSCULAR HEMOGLOBIN 24.3 pg (27.0-31.0); MEAN CORPUSCULAR HGB CONC 31.8 g/dL (33.0-37.0); MEAN PLATELET VOLUME 10.9 fl (7.2-11.7); MONO # 0.3 K/uL (0.0-0.8); MONO % 10.1 % (0.0-10.0); NEUT # 1.9 K/uL (1.8-7.0); NEUT % 71.8 % (50.0-75.0); NRBC % 0.1 % (0.0-0.0); POTASSIUM 4.1 MMOL/L (3.6-5.0); RED CELL DISTRIBUTION WIDTH 16.8 % (11.5-14.5); SODIUM 139 mmol/l (132-148); TOTAL PROTEIN 7.4 G/DL (6.3-8.2); WHITE BLOOD COUNT 2.7 K/uL (4.8-10.8)
[2017-09-05 06:47] LABS: ALB/GLOB RATIO 0.7 (1.0-2.1)
[2017-09-05 06:49] LABS: PARTIAL THROMBOPLASTIN TIME 53.2 Seconds (25.6-37.1)
--- NOTE | 2017-09-05 06:56 | CP.PCM.PN ---
Subjective - Date & Time of Evaluation Date of Evaluation: 09/05/17 Time of Evaluation: 07:30 - Subjective Subjective: 61 y/o seen at bedside. Patient feels "better". Diarrhea improved, stools are now soft but still increased frequency. Denies vomiting, nausea and was able to tolerate dinner last night. Denies abd pain, CP, palpitations, SOB. Denies melena, hematochezia, hamaturia, gingival bleeding. Febrile Objective - Vital Signs/Intake and Output Vital Signs (last 24 hours): Temp Pulse Resp BP Pulse Ox 99.0 F 100 H 18 115/71 96 09/05/17 02:14 09/05/17 00:31 09/05/17 00:31 09/05/17 00:31 09/05/17 00:31 Intake and Output: 09/04/17 09/05/17 18:59 06:59 Intake Total 1000 Balance 1000 - Medications Medications: Current Medications Acetaminophen (Tylenol 325mg Tab) 650 mg PO Q8 PRN PRN Reason: Fever >100.4 F Atovaquone (Mepron) 750 mg PO DAILY [facility] Clonazepam (Klonopin) 1 mg PO DAILY [facility] Darunavir (Prezista) 600 mg PO DAILY [facility] Emtricitabine/Tenofovir (Truvada 200 Mg-300 Mg) 1 tab PO DAILY [facility] Escitalopram Oxalate (Lexapro) 10 mg PO DAILY [facility] Home Med (Quetiapine [Seroquel Xr]) 150 mg PO DAILY [facility] Sodium Chloride (Sodium Chloride 0.9%) 1,000 mls @ 100 mls/hr IV .Q10H [facility] Last Admin: 09/05/17 02:52 Dose: Not Given Ceftriaxone Sodium (Rocephin Iv 1 Gm Duplex) 50 mls @ 50 mls/hr IVPB DAILY [facility] PRN Reason: Protocol Last Admin: 09/04/17 18:33 Dose: 50 mls/hr Mirtazapine (Remeron) 45 mg PO DAILY [facility] Nadolol (Corgard) 40 mg PO DAILY [facility] Ondansetron HCl (Zofran Inj) 4 mg IVP Q6 PRN PRN Reason: Nausea/Vomiting Ritonavir (Norvir) 100 mg PO DAILY [facility] - Labs Labs: 09/04/17 11:37 09/05/17 05:15 PT 16.1 Seconds (9.8-13.1) H 09/05/17 05:15 INR 1.4 (0.9-1.2) H 09/05/17 05:15 APTT 53.2 Seconds (25.6-37.1) H 09/05/17 05:15 - Constitutional Appears: Non-toxic, Chronically Ill - Eye Exam Eye Exam: EOMI, PERRL - ENT Exam ENT Exam: Mucous Membranes Moist - Respiratory Exam Respiratory Exam: Clear to Ausculation Bilateral, NORMAL BREATHING PATTERN. absent: Rales, Wheezes - Cardiovascular Exam Cardiovascular Exam: REGULAR RHYTHM, +S1, +S2. absent: Gallop, Murmur - GI/Abdominal Exam GI & Abdominal Exam: Soft, Normal Bowel Sounds, Organomegaly. absent: Rigid, Tenderness - Extremities Exam Extremities Exam: Full ROM, Normal Capillary Refill. absent: Calf Tenderness, Tenderness - Back Exam Back Exam: absent: CVA tenderness (L), CVA tenderness (R) - Neurological Exam Neurological Exam: Alert, Awake, Normal Gait, Oriented x3 - Psychiatric Exam Psychiatric exam: Normal Affect, Normal Mood - Skin Skin Exam: Pallor, Warm. absent: Petechiae Assessment and Plan - Assessment and Plan (Free Text) Assessment: 61 y/o M with Hx of HIV and liver cirrhosis presents for gastroenteritis and UTI. Gastroenteritis, acute -Improved -Most likely Viral vs UTI -C.Diff neg -F/U Stool Cx, O&P, Stool WBC, Stool Giardia Ag, Cryptosporidium -Lipase, amylase mildly elevated -CT: Chronic colitis?, Liver cirrhosis, Hiatal hernia, tiny gallstones, no ascitis. (Please see full report) -C/W IV fluids -C/W diet -GI consult appreciated UTI, suspected -UA positive for WBC, RBC, Nitrates and LE -Denies urinary symptoms -Could be the cause of gastroenteritis -F/U Ucx, BCx -C/W Rocephin 1g IV daily -Patient meets criteria for SIRS(Fever, Tachy, Leukopenia) however patient is chronically ill and leukopenic. Lactate WNL Liver cirrhosis w/esophageal varices and portal hypertension -Chronic, Cryptogenic -Coags elevated -MELD Score = 13 points 6.0% Estimated 3-Month Mortality -Hep C AB neg -Denies HX of heavy ETOH -c/w Nadolol 40mg daily. -GI recommends EGD tomorrow for esophageal varices banding if plt >[id number] HIV, chronic -C/W home meds -Last CD4 05/2017= 155 with low viral load -C/W Atovaquone for PCP prophylaxis -F/U CD4, viral load Pancytopenia -Chronic -Poss due to liver cirrhosis/Splenomegaly -No active bleeding -Hem-Onc recs consulted. Will f/u recs -4 units of plt to be transfused after obtaining consent. -Patient's ANC 1944---> no Neutropenia Prophylaxis -SCDs for now Full code
[2017-09-05 06:59] LABS: PLATELET COUNT 19 K/uL (130-400)
--- NOTE | 2017-09-05 08:32 | CARD ---
APPROVED REPORT EKG Measurement Heart [id number] <Conclusion> Normal sinus rhythm Possible Left atrial enlargement Borderline ECG
[2017-09-05] MEDS: Emtricitabine-Tenofovir 200 mg-300 mg Tab PO SCH (08:33)
[2017-09-05] MEDS: Atovaquone 750 mg/5 ml Susp UD PO SCH (08:33)
--- NOTE | 2017-09-05 08:43 | CP.PCM.PN ---
<Tawana Elias - Last Filed: 09/05/17 08:53> Subjective - Date & Time of Evaluation Date of Evaluation: 09/05/17 Time of Evaluation: 08:00 - Subjective Subjective: PGY4 GI Follow-up Pt seen and examined bedside Pt states that he is agreeable for transfusion and bands Denies any melena. hematemesis, coffee-ground emesis Denies any abd pain ROS: 10-point ROS conducted neg other than above Objective - Vital Signs/Intake and Output Vital Signs (last 24 hours): Temp Pulse Resp BP Pulse Ox 100.1 F H 92 H 20 104/69 96 09/05/17 07:30 09/05/17 08:33 09/05/17 07:30 09/05/17 08:33 09/05/17 07:30 - Medications Medications: Current Medications Acetaminophen (Tylenol 325mg Tab) 650 mg PO Q8 PRN PRN Reason: Fever >100.4 F Atovaquone (Mepron) 750 mg PO DAILY [facility] Last Admin: 09/05/17 08:33 Dose: 750 mg Clonazepam (Klonopin) 1 mg PO DAILY [facility] Last Admin: 09/05/17 08:36 Dose: 1 mg Darunavir (Prezista) 600 mg PO DAILY [facility] Last Admin: 09/05/17 08:33 Dose: 600 mg Emtricitabine/Tenofovir (Truvada 200 Mg-300 Mg) 1 tab PO DAILY [facility] Last Admin: 09/05/17 08:33 Dose: 1 tab Escitalopram Oxalate (Lexapro) 10 mg PO DAILY [facility] Last Admin: 09/05/17 08:33 Dose: 10 mg Home Med (Quetiapine [Seroquel Xr]) 150 mg PO DAILY [facility] Sodium Chloride (Sodium Chloride 0.9%) 1,000 mls @ 100 mls/hr IV .Q10H [facility] Last Admin: 09/05/17 02:52 Dose: Not Given Ceftriaxone Sodium (Rocephin Iv 1 Gm Duplex) 50 mls @ 50 mls/hr IVPB DAILY [facility] PRN Reason: Protocol Last Admin: 09/04/17 18:33 Dose: 50 mls/hr Mirtazapine (Remeron) 45 mg PO DAILY [facility] Last Admin: 09/05/17 08:34 Dose: 45 mg Nadolol (Corgard) 40 mg PO DAILY [facility] Last Admin: 09/05/17 08:33 Dose: 40 mg Ondansetron HCl (Zofran Inj) 4 mg IVP Q6 PRN PRN Reason: Nausea/Vomiting Ritonavir (Norvir) 100 mg PO DAILY [facility] Last Admin: 09/05/17 08:33 Dose: 100 mg - Labs Labs: 09/05/17 05:15 09/05/17 05:15 PT 16.1 Seconds (9.8-13.1) H 09/05/17 05:15 INR 1.4 (0.9-1.2) H 09/05/17 05:15 APTT 53.2 Seconds (25.6-37.1) H 09/05/17 05:15 - Constitutional Appears: Well, No Acute Distress - Head Exam Head Exam: ATRAUMATIC, NORMOCEPHALIC - Eye Exam Eye Exam: Normal appearance - ENT Exam ENT Exam: Mucous Membranes Moist - Respiratory Exam Respiratory Exam: Clear to Ausculation Bilateral, NORMAL BREATHING PATTERN. absent: Prolonged Expiratory Phase, Rales, Rhonchi, Wheezes, Respiratory Distress - Cardiovascular Exam Cardiovascular Exam: REGULAR RHYTHM, +S1, +S2 - GI/Abdominal Exam GI & Abdominal Exam: Soft, Normal Bowel Sounds. absent: Distended, Guarding, Rigid, Tenderness, Organomegaly - Extremities Exam Extremities Exam: absent: Joint Swelling, Pedal Edema - Neurological Exam Neurological Exam: Alert, Awake, Oriented x3 - Psychiatric Exam Psychiatric exam: Normal Affect, Normal Mood - Skin Skin Exam: Dry, Intact, Normal Color, Warm Assessment and Plan - Assessment and Plan (Free Text) Assessment: Sandip Akhtar is a 61M w/ hx of esophageal varicies, portal HTN, Cirrhosis, and HIV on HAART who presents to the ER due to nausea, vomiting, and diarrhea. Gastroenteritis, likely viral, r/o c.diff Acute on Chronic Thrombocytopenia likely 2/2 above and underlying cirrhosis Cryptogenic Cirrhosis Esophageal Varices Portal HTN 2/2 cirrhosis Plan: - pt is agreeable for transfusion today - repeat platlet is 19 - recommend 4 units platlets and recheck cbc afterwards - will attempt to do an EGD w/ variceal banding today, only after transfusion, if not able to complete, will tenatively schedule for today - will get consent - NPO ofr now - will need to follow-up with Dr Landers as an oupt D/W Dr. Landers <Liz Landers MD - Last Filed: 09/05/17 11:38> Objective - Vital Signs/Intake and Output Vital Signs (last 24 hours): Temp Pulse Resp BP Pulse Ox 100.1 F H 92 H 20 104/69 96 09/05/17 07:30 09/05/17 08:33 09/05/17 07:30 09/05/17 08:33 09/05/17 07:30 - Medications Medications: Current Medications Acetaminophen (Tylenol 325mg Tab) 650 mg PO Q8 PRN PRN Reason: Fever >100.4 F Atovaquone (Mepron) 750 mg PO DAILY [facility] Last Admin: 09/05/17 08:33 Dose: 750 mg Clonazepam (Klonopin) 1 mg PO DAILY [facility] Last Admin: 09/05/17 08:36 Dose: 1 mg Darunavir (Prezista) 600 mg PO DAILY [facility] Last Admin: 09/05/17 08:33 Dose: 600 mg Emtricitabine/Tenofovir (Truvada 200 Mg-300 Mg) 1 tab PO DAILY [facility] Last Admin: 09/05/17 08:33 Dose: 1 tab Escitalopram Oxalate (Lexapro) 10 mg PO DAILY [facility] Last Admin: 09/05/17 08:33 Dose: 10 mg Home Med (Quetiapine [Seroquel Xr]) 150 mg PO DAILY [facility] Sodium Chloride (Sodium Chloride 0.9%) 1,000 mls @ 100 mls/hr IV .Q10H [facility] Last Admin: 09/05/17 02:52 Dose: Not Given Ceftriaxone Sodium (Rocephin Iv 1 Gm Duplex) 50 mls @ 50 mls/hr IVPB DAILY [facility] PRN Reason: Protocol Last Admin: 09/04/17 18:33 Dose: 50 mls/hr Mirtazapine (Remeron) 45 mg PO DAILY [facility] Last Admin: 09/05/17 08:34 Dose: 45 mg Nadolol (Corgard) 40 mg PO DAILY [facility] Last Admin: 09/05/17 08:33 Dose: 40 mg Ondansetron HCl (Zofran Inj) 4 mg IVP Q6 PRN PRN Reason: Nausea/Vomiting Ritonavir (Norvir) 100 mg PO DAILY [facility] Last Admin: 09/05/17 08:33 Dose: 100 mg - Labs Labs: 09/05/17 05:15 09/05/17 05:15 PT 16.1 Seconds (9.8-13.1) H 09/05/17 05:15 INR 1.4 (0.9-1.2) H 09/05/17 05:15 APTT 53.2 Seconds (25.6-37.1) H 09/05/17 05:15 Attending/Attestation - Attestation I have personally seen and examined this patient.: Yes I have fully participated in the care of the patient.: Yes I have reviewed all pertinent clinical information, including history, physical exam and plan: Yes Notes (Text): 09/05/17 11:37 Patient seen at bedside this am. This is a 61 yr old M w/ hx of esophageal varicies, portal HTN, Cirrhosis, and HIV on HAART who presents to the ER due to nausea, vomiting, and diarrhea which has resolved. He has severe portal HTN and hence low platelets and anemia. He had diagnostic EGd last month that showed large varices which were not banded due to thrombocytopenia. Today he agreed to platelet transfusion and EGD which is scheduled for tomorrow. I did reiterate that he is very high risk for bleeding due to varices that can lead to decompensation and . Patient has capacity to make decisions. Regular diet with NPO past midnight. Will start 5 bags of platelet infusion at 5 am. 09/05/17 11:38
[2017-09-05] MEDS ORDERED: QUETIAPINE 150 MG PO SCH (09:00)
[2017-09-05] MEDS: cefTRIAXone IV 1 gm in Dextros 50 ML IVPB SCH (09:00)
[2017-09-05 10:43] LABS: NEUTROPHIL 72 % (42-75); TOTAL CELLS COUNTED 100
[2017-09-05 10:45] LABS: LARGE PLATELETS PRESENT
--- NOTE | 2017-09-05 12:58 | CP.PCM.CON ---
History of Present Illness - History of Present Illness History of Present Illness: This is a 61 yrs old male with a h/o alcoholic liver disease, cirrhosis with hypersplenism and pancytopenia. He came in with nausea and vomiting and a platelet count of 19K. He is also .IV positive and on retroviral drugs. He is to have a endoscopy tomorrow, . He has had admissions in te past with with similar problems, Past Patient History - Infectious Disease Hx of Infectious Diseases: None - Past Medical History & Family History Past Medical History?: Yes - Past Social History Smoking Status: Never Smoked Alcohol: None Drugs: Denies Home Situation {Lives}: Alone - CARDIAC Hx Cardiac Disorders: No - PULMONARY Hx Respiratory Disorders: No - NEUROLOGICAL Hx Neurological Disorder: No - HEENT Hx HEENT Problems: No - RENAL Hx Chronic Kidney Disease: No - ENDOCRINE/METABOLIC Hx Endocrine Disorders: No - HEMATOLOGICAL/ONCOLOGICAL Hx Blood Disorders: Yes - INTEGUMENTARY Hx Dermatological Problems: No - MUSCULOSKELETAL/RHEUMATOLOGICAL Hx Musculoskeletal Disorders: No - GASTROINTESTINAL Hx Gastrointestinal Disorders: Yes Hx Esophageal Varices: Yes - GENITOURINARY/GYNECOLOGICAL Hx Genitourinary Disorders: No - PSYCHIATRIC Hx Psychophysiologic Disorder: Yes - SURGICAL HISTORY Hx Surgeries: No - ANESTHESIA Hx Anesthesia: No Hx Anesthesia Reactions: No Hx Malignant Hyperthermia: No Meds Allergies/Adverse Reactions: Allergies Allergy/AdvReac Type Severity Reaction Status Date / Time No Known Allergies Allergy Verified 09/04/17 10:53 - Medications Medications: Current Medications Acetaminophen (Tylenol 325mg Tab) 650 mg PO Q8 PRN PRN Reason: Fever >100.4 F Atovaquone (Mepron) 750 mg PO DAILY [facility] Last Admin: 09/05/17 08:33 Dose: 750 mg Clonazepam (Klonopin) 1 mg PO DAILY [facility] Last Admin: 09/05/17 08:36 Dose: 1 mg Darunavir (Prezista) 600 mg PO DAILY [facility] Last Admin: 09/05/17 08:33 Dose: 600 mg Emtricitabine/Tenofovir (Truvada 200 Mg-300 Mg) 1 tab PO DAILY [facility] Last Admin: 09/05/17 08:33 Dose: 1 tab Escitalopram Oxalate (Lexapro) 10 mg PO DAILY [facility] Last Admin: 09/05/17 08:33 Dose: 10 mg Home Med (Quetiapine [Seroquel Xr]) 150 mg PO DAILY [facility] Sodium Chloride (Sodium Chloride 0.9%) 1,000 mls @ 100 mls/hr IV .Q10H [facility] Last Admin: 09/05/17 02:52 Dose: Not Given Ceftriaxone Sodium (Rocephin Iv 1 Gm Duplex) 50 mls @ 50 mls/hr IVPB DAILY [facility] PRN Reason: Protocol Last Admin: 09/04/17 18:33 Dose: 50 mls/hr Mirtazapine (Remeron) 45 mg PO DAILY [facility] Last Admin: 09/05/17 08:34 Dose: 45 mg Nadolol (Corgard) 40 mg PO DAILY [facility] Last Admin: 09/05/17 08:33 Dose: 40 mg Ondansetron HCl (Zofran Inj) 4 mg IVP Q6 PRN PRN Reason: Nausea/Vomiting Ritonavir (Norvir) 100 mg PO DAILY [facility] Last Admin: 09/05/17 08:33 Dose: 100 mg Physical Exam - Additional Findings Additional findings: Physical exam' Alert, well oriented, in no acute distress Neck; supple., no adenopathny Chest; clear, no rales or rhonchi Heart; RSR, no murmur Abd; Soft, no mass, spleen enlarged. Results - Vital Signs Recent Vital Signs: Last Vital Signs Temp 100.1 F H 09/05/17 07:30 Pulse 92 H 09/05/17 08:33 Resp 20 09/05/17 07:30 BP 104/69 09/05/17 08:33 Pulse Ox 96 09/05/17 07:30 - Labs Result Diagrams: 09/05/17 05:15 09/05/17 05:15 Labs: Laboratory Results - last 24 hr 09/04/17 09/05/17 09/05/17 13:02 05:15 05:15 WBC 2.7 L RBC 4.06 L Hgb 9.9 L Hct 31.0 L MCV 76.5 L MCH 24.3 L MCHC 31.8 L RDW 16.8 H Plt Count 19 L* MPV 10.9 Neut % (Auto) 71.8 Lymph % (Auto) 16.7 L [place] % (Auto) 10.1 H Eos % (Auto) 1.0 Baso % (Auto) 0.4 Neut # 1.9 Lymph # 0.4 L [place] # 0.3 Eos # 0.0 Baso # 0.0 Neutrophils % (Manual) 72 Lymphocytes % (Manual) 16 L Monocytes % (Manual) 12 H Plasma Cell % (Manual) Platelet Estimate Decreased L Large Platelets Present Hypochromasia (manual) Slight Anisocytosis (manual) Slight Ovalocytes Slight PT 16.1 H INR 1.4 H APTT 53.2 H Sodium Potassium Chloride Carbon Dioxide Anion Gap BUN Creatinine Est GFR ( Amer) Est GFR (Non-Af Amer) Random Glucose Calcium Total Bilirubin AST ALT Alkaline Phosphatase Total Protein Albumin Globulin Albumin/Globulin Ratio C. difficile Ag & Toxin Negative Blood Type Blood Type Confirm Antibody Screen BBK History Checked 09/05/17 09/05/17 09/05/17 05:15 11:18 11:34 WBC RBC Hgb Hct MCV MCH MCHC RDW Plt Count MPV Neut % (Auto) Lymph % (Auto) [place] % (Auto) Eos % (Auto) Baso % (Auto) Neut # Lymph # [place] # Eos # Baso # Neutrophils % (Manual) Lymphocytes % (Manual) Monocytes % (Manual) Plasma Cell % (Manual) Platelet Estimate Large Platelets Hypochromasia (manual) Anisocytosis (manual) Ovalocytes PT INR APTT Sodium 139 Potassium 4.1 Chloride 109 H Carbon Dioxide 23 Anion Gap 11 BUN 21 H Creatinine 1.3 Est GFR ( Amer) > 60 Est GFR (Non-Af Amer) 57 Random Glucose 111 H Calcium 7.3 L Total Bilirubin 0.9 AST 39 ALT 38 Alkaline Phosphatase 70 Total Protein 7.4 Albumin 2.9 L Globulin 4.5 H Albumin/Globulin Ratio 0.7 L C. difficile Ag & Toxin Blood Type O POSITIVE Blood Type Confirm O POSITIVE Antibody Screen Negative BBK History Checked No verified bt Assessment & Plan - Assessment and Plan (Free Text) Assessment: Impression; Pancytopenia secondary to hypersplenism,from cirrhosis. Also because of HIV antiretroviral drugs. - Date & Time Date: 09/05/17 Time: 13:04
[2017-09-06 06:20] LABS: HEMATOCRIT 31.1 % (35.0-51.0); MEAN CELL VOLUME 76.3 fl (80.0-94.0); MEAN CORPUSCULAR HEMOGLOBIN 24.3 pg (27.0-31.0); MEAN CORPUSCULAR HGB CONC 31.8 g/dL (33.0-37.0); RED CELL DISTRIBUTION WIDTH 16.6 % (11.5-14.5); WHITE BLOOD COUNT 3.5 K/uL (4.8-10.8)
[2017-09-06 06:37] LABS: BLOOD UREA NITROGEN 16 mg/dl (9-20); CALCIUM 7.6 mg/dL (8.4-10.2); CARBON DIOXIDE 25 mmol/L (22-30); CHLORIDE 110 mmol/L (98-107); GFR AFRICAN-AMERICAN > 60; GLUCOSE,RANDOM 110 mg/dL (75-110); POTASSIUM 4.1 MMOL/L (3.6-5.0); SODIUM 142 mmol/l (132-148)
[2017-09-06] MEDS ORDERED: Succinylcholine 200 mg/10 ml Inj IV ONE (07:06)
[2017-09-06] MEDS ORDERED: Etomidate 20 mg/10ml Inj IV ONE (07:07)
--- NOTE | 2017-09-06 08:15 | CP.PCM.PN ---
Subjective - Date & Time of Evaluation Date of Evaluation: 09/06/17 Time of Evaluation: 08:12 - Subjective Subjective: Pt is going for EGD today. He will be transfused platelets prior to the procedure. Objective - Vital Signs/Intake and Output Vital Signs (last 24 hours): Temp Pulse Resp BP Pulse Ox 98.9 F 77 20 107/71 95 09/06/17 07:25 09/06/17 07:25 09/06/17 07:25 09/06/17 07:25 09/06/17 07:25 - Medications Medications: Current Medications Acetaminophen (Tylenol 325mg Tab) 650 mg PO Q8 PRN PRN Reason: Fever >100.4 F Atovaquone (Mepron) 750 mg PO DAILY [facility] Last Admin: 09/05/17 08:33 Dose: 750 mg Clonazepam (Klonopin) 1 mg PO DAILY [facility] Last Admin: 09/05/17 08:36 Dose: 1 mg Darunavir (Prezista) 600 mg PO DAILY [facility] Last Admin: 09/05/17 08:33 Dose: 600 mg Emtricitabine/Tenofovir (Truvada 200 Mg-300 Mg) 1 tab PO DAILY [facility] Last Admin: 09/05/17 08:33 Dose: 1 tab Escitalopram Oxalate (Lexapro) 10 mg PO DAILY [facility] Last Admin: 09/05/17 08:33 Dose: 10 mg Home Med (Quetiapine [Seroquel Xr]) 150 mg PO DAILY [facility] Sodium Chloride (Sodium Chloride 0.9%) 1,000 mls @ 100 mls/hr IV .Q10H [facility] Last Admin: 09/05/17 22:17 Dose: 100 mls/hr Ceftriaxone Sodium (Rocephin Iv 1 Gm Duplex) 50 mls @ 50 mls/hr IVPB DAILY [facility] PRN Reason: Protocol Last Admin: 09/05/17 09:00 Dose: 50 mls/hr Mirtazapine (Remeron) 45 mg PO DAILY [facility] Last Admin: 09/05/17 08:34 Dose: 45 mg Nadolol (Corgard) 40 mg PO DAILY [facility] Last Admin: 09/05/17 08:33 Dose: 40 mg Ondansetron HCl (Zofran Inj) 4 mg IVP Q6 PRN PRN Reason: Nausea/Vomiting Ritonavir (Norvir) 100 mg PO DAILY [facility] Last Admin: 09/05/17 08:33 Dose: 100 mg - Labs Labs: 09/06/17 06:10 09/06/17 06:10 PT 16.1 Seconds (9.8-13.1) H 09/05/17 05:15 INR 1.4 (0.9-1.2) H 09/05/17 05:15 APTT 53.2 Seconds (25.6-37.1) H 09/05/17 05:15
[2017-09-06] MEDS ORDERED: Lactated Ringer's 1,000 ML IV ONE (08:38)
[2017-09-06] MEDS ORDERED: EPINEPHrine 1 mg/ml (1:1000) Inj ONE (08:47)
[2017-09-06 08:55] LABS: ALB/GLOB RATIO 0.7 (1.0-2.1); ALKALINE PHOSPHATASE 68 U/L (38-126); ALT/SGPT 42 U/L (21-72); AST/SGOT 34 U/L (17-59); BILIRUBIN,TOTAL 0.7 mg/dl (0.2-1.3); BLOOD UREA NITROGEN 15 mg/dl (9-20); CALCIUM 7.6 mg/dL (8.4-10.2); CARBON DIOXIDE 23 mmol/L (22-30); CHLORIDE 111 mmol/L (98-107); GFR AFRICAN-AMERICAN > 60; GLUCOSE,RANDOM 104 mg/dL (75-110); SODIUM 142 mmol/l (132-148); TOTAL PROTEIN 7.1 G/DL (6.3-8.2)
[2017-09-06] MEDS ORDERED: ePHEDrine 50 mg/ml Inj ONE (09:21)
[2017-09-06] MEDS ORDERED: Propofol 10 mg/ml Inj (20 ML) ONE (09:21)
[2017-09-06] MEDS ORDERED: Lidocaine 2% MPF (5 ml) Inj ONE (09:22)
--- NOTE | 2017-09-06 11:16 | CP.PCM.PN ---
Subjective - Date & Time of Evaluation Date of Evaluation: 09/06/17 Time of Evaluation: 06:45 - Subjective Subjective: 61 y/o M seen at bedside this morning in not acute distress, NPO since midnight , awaiting EGD with banding this morning. No events overnight. He received 3 units of plts already which patient tolerated well. Last unit to be given while patient is transferred for procedure. Afebrile. Vomiting, diarrhea and nausea resolved. Denies CP, palpitations, melena, hematemesis, hematochezia. Objective - Vital Signs/Intake and Output Vital Signs (last 24 hours): Temp Pulse Resp BP Pulse Ox 98.4 F 90 20 113/60 95 09/06/17 10:15 09/06/17 10:15 09/06/17 10:15 09/06/17 10:15 09/06/17 10:15 Intake and Output: 09/06/17 09/06/17 06:59 18:59 Intake Total 150 Balance 150 - Medications Medications: Current Medications Acetaminophen (Tylenol 325mg Tab) 650 mg PO Q8 PRN PRN Reason: Fever >100.4 F Atovaquone (Mepron) 750 mg PO DAILY [facility] Last Admin: 09/05/17 08:33 Dose: 750 mg Clonazepam (Klonopin) 1 mg PO DAILY [facility] Last Admin: 09/05/17 08:36 Dose: 1 mg Darunavir (Prezista) 600 mg PO DAILY [facility] Last Admin: 09/05/17 08:33 Dose: 600 mg Emtricitabine/Tenofovir (Truvada 200 Mg-300 Mg) 1 tab PO DAILY [facility] Last Admin: 09/05/17 08:33 Dose: 1 tab Escitalopram Oxalate (Lexapro) 10 mg PO DAILY [facility] Last Admin: 09/05/17 08:33 Dose: 10 mg Home Med (Quetiapine [Seroquel Xr]) 150 mg PO DAILY [facility] Sodium Chloride (Sodium Chloride 0.9%) 1,000 mls @ 100 mls/hr IV .Q10H [facility] Last Admin: 09/05/17 22:17 Dose: 100 mls/hr Ceftriaxone Sodium (Rocephin Iv 1 Gm Duplex) 50 mls @ 50 mls/hr IVPB DAILY [facility] PRN Reason: Protocol Last Admin: 09/05/17 09:00 Dose: 50 mls/hr Mirtazapine (Remeron) 45 mg PO DAILY [facility] Last Admin: 09/05/17 08:34 Dose: 45 mg Nadolol (Corgard) 40 mg PO DAILY [facility] Last Admin: 09/05/17 08:33 Dose: 40 mg Ondansetron HCl (Zofran Inj) 4 mg IVP Q6 PRN PRN Reason: Nausea/Vomiting Ritonavir (Norvir) 100 mg PO DAILY [facility] Last Admin: 09/05/17 08:33 Dose: 100 mg - Labs Labs: 09/06/17 06:10 09/06/17 08:35 PT 15.7 Seconds (9.8-13.1) H 09/06/17 08:35 INR 1.4 (0.9-1.2) H 09/06/17 08:35 APTT 53.2 Seconds (25.6-37.1) H 09/05/17 05:15 - Constitutional Appears: Non-toxic, Chronically Ill - Eye Exam Eye Exam: EOMI - ENT Exam ENT Exam: Mucous Membranes Moist - Respiratory Exam Respiratory Exam: Clear to Ausculation Bilateral, NORMAL BREATHING PATTERN. absent: Decreased Breath Sounds, Rales, Wheezes - Cardiovascular Exam Cardiovascular Exam: REGULAR RHYTHM, +S1, +S2. absent: Gallop - GI/Abdominal Exam GI & Abdominal Exam: Soft, Organomegaly. absent: Distended, Rigid, Tenderness, Rebound - Extremities Exam Extremities Exam: Full ROM, Normal Capillary Refill. absent: Calf Tenderness, Pedal Edema - Back Exam Back Exam: absent: CVA tenderness (L), CVA tenderness (R) - Neurological Exam Neurological Exam: Alert, Awake, Oriented x3 - Skin Skin Exam: Warm. absent: Petechiae, Rash Assessment and Plan - Assessment and Plan (Free Text) Assessment: 61 y/o M with Hx of HIV and liver cirrhosis presents for gastroenteritis and UTI. Liver cirrhosis w/esophageal varices and portal hypertension -Chronic, Cryptogenic -MELD Score = 13 points 6.0% Estimated 3-Month Mortality -c/w Nadolol 40mg daily. -GI consult appreciated -For EDG with banding today -Will revaluate Pancytopenia -Chronic -Poss due to liver cirrhosis/Hypersplenism -No active bleeding -Hem-Onc recs consulted. Will f/u recs -4 units of plt to be transfused after obtaining consent. -Patient's ANC 1943---> no Neutropenia UTI, suspected -Improved -UA positive for WBC, RBC, Nitrates and LE -Denies urinary symptoms -Could be the cause of gastroenteritis -BCx no growth -UCx pending -C/W Rocephin 1g IV daily -Patient doesnt meet criteria for SIRS at this time Gastroenteritis, acute -Resolved -Most likely Viral vs UTI -C.Diff neg -Stool Cx neg -GI consult appreciated HIV, chronic -C/W home meds -Last CD4 05/2017= 155 with low viral load -C/W Atovaquone for PCP prophylaxis -F/U CD4, viral load Prophylaxis -SCDs for now for DVT prophylaxis(Patient increased bleeding risk with low plt and elevated INR) Full code
[2017-09-06] MEDS: Atovaquone 750 mg/5 ml Susp UD PO SCH ×2 (12:47→13:02)
[2017-09-06] MEDS: Sodium Chloride 0.9% 1,000 ML IV SCH (12:48)
[2017-09-06] MEDS: Emtricitabine-Tenofovir 200 mg-300 mg Tab PO SCH (12:49)
--- NOTE | 2017-09-06 14:21 | CP.PCM.PCO ---
Physician Communication Note - Physician Communication Note Physician Communication Note: s/p EGd with variceaal banding. See full report in chart
[2017-09-06] MEDS: cefTRIAXone IV 1 gm in Dextros 50 ML IVPB SCH (16:08)
[2017-09-07 07:05] LABS: ALKALINE PHOSPHATASE 67 U/L (38-126); ALT/SGPT 40 U/L (21-72); AST/SGOT 32 U/L (17-59); BILIRUBIN,TOTAL 0.6 mg/dl (0.2-1.3); BLOOD UREA NITROGEN 14 mg/dl (9-20); CALCIUM 7.7 mg/dL (8.4-10.2); CARBON DIOXIDE 23 mmol/L (22-30); CHLORIDE 112 mmol/L (98-107); GFR AFRICAN-AMERICAN > 60; GLUCOSE,RANDOM 100 mg/dL (75-110); HEMATOCRIT 28.4 % (35.0-51.0); MEAN CELL VOLUME 75.8 fl (80.0-94.0); MEAN CORPUSCULAR HEMOGLOBIN 24.4 pg (27.0-31.0); MEAN CORPUSCULAR HGB CONC 32.2 g/dL (33.0-37.0); PLATELET COUNT 45 K/uL (130-400); POTASSIUM 4.1 MMOL/L (3.6-5.0); RED CELL DISTRIBUTION WIDTH 16.5 % (11.5-14.5); SODIUM 143 mmol/l (132-148); TOTAL PROTEIN 7.1 G/DL (6.3-8.2)
[2017-09-07 07:10] LABS: ALB/GLOB RATIO 0.7 (1.0-2.1)
--- NOTE | 2017-09-07 07:17 | CP.PCM.PN ---
Subjective - Date & Time of Evaluation Date of Evaluation: 09/07/17 Time of Evaluation: 07:00 - Subjective Subjective: PGY4 GI Follow-up Pt seen and examined bedside Pt states that he is agreeable for transfusion and bands Denies any melena. hematemesis, coffee-ground emesis Denies any abd pain ROS: 10-point ROS conducted neg other than above Objective - Vital Signs/Intake and Output Vital Signs (last 24 hours): Temp Pulse Resp BP Pulse Ox 98.3 F 73 18 110/69 95 09/07/17 00:00 09/07/17 00:00 09/07/17 00:00 09/07/17 00:00 09/07/17 00:00 - Medications Medications: Current Medications Acetaminophen (Tylenol 325mg Tab) 650 mg PO Q8 PRN PRN Reason: Fever >100.4 F Atovaquone (Mepron) 750 mg PO DAILY [facility] Last Admin: 09/06/17 13:02 Dose: Not Given Clonazepam (Klonopin) 1 mg PO DAILY [facility] Last Admin: 09/06/17 12:46 Dose: 1 mg Darunavir (Prezista) 600 mg PO DAILY [facility] Last Admin: 09/06/17 12:48 Dose: 600 mg Emtricitabine/Tenofovir (Truvada 200 Mg-300 Mg) 1 tab PO DAILY [facility] Last Admin: 09/06/17 12:49 Dose: 1 tab Escitalopram Oxalate (Lexapro) 10 mg PO DAILY [facility] Last Admin: 09/06/17 12:47 Dose: 10 mg Ceftriaxone Sodium (Rocephin Iv 1 Gm Duplex) 50 mls @ 50 mls/hr IVPB DAILY [facility] PRN Reason: Protocol Last Admin: 09/06/17 16:08 Dose: 50 mls/hr Mirtazapine (Remeron) 45 mg PO HS [facility] Last Admin: 09/06/17 21:38 Dose: 45 mg Nadolol (Corgard) 40 mg PO DAILY [facility] Last Admin: 09/06/17 12:47 Dose: 40 mg Ondansetron HCl (Zofran Inj) 4 mg IVP Q6 PRN PRN Reason: Nausea/Vomiting Ritonavir (Norvir) 100 mg PO DAILY [facility] Last Admin: 09/06/17 12:48 Dose: 100 mg - Labs Labs: 09/06/17 06:10 09/07/17 05:50 PT 15.7 Seconds (9.8-13.1) H 09/06/17 08:35 INR 1.4 (0.9-1.2) H 09/06/17 08:35 APTT 53.2 Seconds (25.6-37.1) H 09/05/17 05:15 - Constitutional Appears: Non-toxic, In Acute Distress - Head Exam Head Exam: ATRAUMATIC, NORMOCEPHALIC - Eye Exam Eye Exam: Normal appearance - ENT Exam ENT Exam: Mucous Membranes Moist - Respiratory Exam Respiratory Exam: Clear to Ausculation Bilateral, NORMAL BREATHING PATTERN. absent: Rales, Rhonchi, Wheezes, Respiratory Distress - Cardiovascular Exam Cardiovascular Exam: REGULAR RHYTHM, +S1, +S2 - GI/Abdominal Exam GI & Abdominal Exam: Soft, Normal Bowel Sounds. absent: Firm, Guarding, Rigid, Tenderness - Extremities Exam Extremities Exam: absent: Joint Swelling, Pedal Edema - Neurological Exam Neurological Exam: Alert, Awake, Oriented x3 - Psychiatric Exam Psychiatric exam: Normal Affect, Normal Mood - Skin Skin Exam: Dry, Intact, Normal Color, Warm Assessment and Plan - Assessment and Plan (Free Text) Assessment: Sandip Akhtar is a 61M w/ hx of esophageal varicies, portal HTN, Cirrhosis, and HIV on HAART who presents to the ER due to nausea, vomiting, and diarrhea. Gastroenteritis, likely viral, improving Acute on Chronic Thrombocytopenia likely 2/2 above and underlying cirrhosis, s/ p 5 units platlets Cryptogenic Cirrhosis Esophageal Varices s/p 5 bands 09/06/17 Portal HTN 2/2 cirrhosis Plan: - tolerated liquids yesterday - Advance to soft diet - Follow-up with Dr. Landers - Continue Nadolol 40mg daily - F/U Dr. Landers as oupt in 4 weeks - Still no acsites, will not initiate diuretic - Advise strict ETOH avoidance - Low Na diet - No reports of GI bleed overnight -Will sign off Will D/W Dr. Hyde
[2017-09-07 07:50] LABS: WHITE BLOOD COUNT 1.7 K/uL (4.8-10.8)
[2017-09-07] MEDS: Emtricitabine-Tenofovir 200 mg-300 mg Tab PO SCH (08:56)
[2017-09-07] MEDS: Atovaquone 750 mg/5 ml Susp UD PO SCH ×2 (08:56→09:06)
[2017-09-07] MEDS: cefTRIAXone IV 1 gm in Dextros 50 ML IVPB SCH (08:57)
--- NOTE | 2017-09-07 11:27 | CP.PCM.DIS ---
Provider - Provider Date of Admission: 09/04/17 13:57 Attending physician: Nicolette Chang MD Hospital Course - Lab Results Lab Results: Micro Results 09/04/17 13:01 Stool Stool Culture - Final NO SALMONELLA, SHIGELLA OR CAMPYLOBACTER ISOLATED. 09/05/17 19:23 Urine Urine Culture - Final No Growth (<1,000 CFU/ML) 09/04/17 11:37 Blood Blood Culture - Preliminary NO GROWTH AFTER 48 HOURS 09/04/17 11:37 Blood Blood Culture - Preliminary NO GROWTH AFTER 48 HOURS Most Recent Lab Values WBC 1.7 K/uL (4.8-10.8) L* D 09/07/17 05:50 RBC 3.75 Mil/uL (4.40-5.90) L 09/07/17 05:50 Hgb 9.2 g/dL (12.0-18.0) L 09/07/17 05:50 Hct 28.4 % (35.0-51.0) L 09/07/17 05:50 MCV 75.8 fl (80.0-94.0) L 09/07/17 05:50 MCH 24.4 pg (27.0-31.0) L 09/07/17 05:50 MCHC 32.2 g/dL (33.0-37.0) L 09/07/17 05:50 RDW 16.5 % (11.5-14.5) H 09/07/17 05:50 Plt Count 45 K/uL (130-400) L 09/07/17 05:50 MPV 10.9 fl (7.2-11.7) 09/05/17 05:15 Neut % (Auto) 71.8 % (50.0-75.0) 09/05/17 05:15 Lymph % (Auto) 16.7 % (20.0-40.0) L 09/05/17 05:15 [place] % (Auto) 10.1 % (0.0-10.0) H 09/05/17 05:15 Eos % (Auto) 1.0 % (0.0-4.0) 09/05/17 05:15 Baso % (Auto) 0.4 % (0.0-2.0) 09/05/17 05:15 Neut # 1.9 K/uL (1.8-7.0) 09/05/17 05:15 Lymph # 0.4 K/uL (1.0-4.3) L 09/05/17 05:15 [place] # 0.3 K/uL (0.0-0.8) 09/05/17 05:15 Eos # 0.0 K/uL (0.0-0.7) 09/05/17 05:15 Baso # 0.0 K/uL (0.0-0.2) 09/05/17 05:15 Neutrophils % (Manual) 72 % (42-75) 09/05/17 05:15 Lymphocytes % (Manual) 16 % (20-50) L 09/05/17 05:15 Monocytes % (Manual) 12 % (0-10) H 09/05/17 05:15 Plasma Cell % (Manual) (0-0) 09/05/17 05:15 Platelet Estimate Decreased (NORMAL) L 09/05/17 05:15 Large Platelets Present 09/05/17 05:15 Hypochromasia (manual) Slight 09/05/17 05:15 Anisocytosis (manual) Slight 09/05/17 05:15 Ovalocytes Slight 09/05/17 05:15 PT 15.7 Seconds (9.8-13.1) H 09/06/17 08:35 INR 1.4 (0.9-1.2) H 09/06/17 08:35 APTT 53.2 Seconds (25.6-37.1) H 09/05/17 05:15 Sodium 143 mmol/l (132-148) 09/07/17 05:50 Potassium 4.1 MMOL/L (3.6-5.0) 09/07/17 05:50 Chloride 112 mmol/L (98-107) H 09/07/17 05:50 Carbon Dioxide 23 mmol/L (22-30) 09/07/17 05:50 Anion Gap 12 (10-20) 09/07/17 05:50 BUN 14 mg/dl (9-20) 09/07/17 05:50 Creatinine 0.9 mg/dl (0.8-1.5) 09/07/17 05:50 Est GFR ( Amer) > 60 09/07/17 05:50 Est GFR (Non-Af Amer) > 60 09/07/17 05:50 Random Glucose 100 mg/dL (75-110) 09/07/17 05:50 Lactic Acid 1.6 MMOL/L (0.7-2.1) 09/04/17 11:37 Calcium 7.7 mg/dL (8.4-10.2) L 09/07/17 05:50 Total Bilirubin 0.6 mg/dl (0.2-1.3) 09/07/17 05:50 AST 32 U/L (17-59) 09/07/17 05:50 ALT 40 U/L (21-72) 09/07/17 05:50 Alkaline Phosphatase 67 U/L (38-126) 09/07/17 05:50 Troponin I < 0.0120 ng/mL (0.00-0.120) 09/04/17 11:37 Total Protein 7.1 G/DL (6.3-8.2) 09/07/17 05:50 Albumin 2.9 g/dL (3.5-5.0) L 09/07/17 05:50 Globulin 4.2 gm/dL (2.2-3.9) H 09/07/17 05:50 Albumin/Globulin Ratio 0.7 (1.0-2.1) L 09/07/17 05:50 Amylase 212 U/L (30-110) H 09/04/17 11:37 Lipase 322 U/L (23-300) H 09/04/17 11:37 Urine Color Nata (YELLOW) 09/04/17 11:54 Urine Clarity Turbid (Clear) 09/04/17 11:54 Urine pH 6.0 (5.0-8.0) 09/04/17 11:54 Ur Specific [place] 1.017 (1.003-1.030) 09/04/17 11:54 Urine Protein 100 mg/dL (NEGATIVE) 09/04/17 11:54 Urine Glucose (UA) Neg mg/dL (Normal) 09/04/17 11:54 Urine Ketones Negative mg/dL (NEGATIVE) 09/04/17 11:54 Urine Blood Large (NEGATIVE) 09/04/17 11:54 Urine Nitrate Positive (NEGATIVE) H 09/04/17 11:54 Urine Bilirubin Negative (NEGATIVE) 09/04/17 11:54 Urine Urobilinogen 0.2-1.0 mg/dL (0.2-1.0) 09/04/17 11:54 Ur Leukocyte Esterase Large Ashley/uL (Negative) 09/04/17 11:54 Urine RBC (Auto) 113 /hpf (0-3) H 09/04/17 11:54 Urine Microscopic WBC 1987 /hpf (0-5) H 09/04/17 11:54 Urine Bacteria Mod (<OCC) H 09/04/17 11:54 Stool Occult Blood Negative (NEGATIVE) 09/04/17 12:55 Absolute Lymphs (Flow) 611 Cells/mcL (850-3900) L 09/05/17 05:15 % CD4 Cells 19 Percent (30-61) L 09/05/17 05:15 Absolute CD4 Count 113 Cells/mcL (490-1740) L 09/05/17 05:15 T-Help/Suppress Ratio 1.46 Ratio (0.86-5.00) 09/05/17 05:15 % CD8 Cells 13 Percent (12-42) 09/05/17 05:15 Absolute CD8 Count 77 Cells/mcL (180-1170) L 09/05/17 05:15 C. difficile Ag & Toxin Negative (NEGATIVE) 09/04/17 13:02 Hep Bs Antigen Negative (NEGATIVE) 09/05/17 05:15 Hep Bs Antibody Positive (NEGATIVE) 09/05/17 05:15 Hep B Core IgM Ab Negative (NEGATIVE) 09/05/17 05:15 Blood Type O POSITIVE 09/05/17 11:18 Blood Type Confirm O POSITIVE 09/05/17 11:34 Antibody Screen Negative 09/05/17 11:18 Crossmatch See Detail 09/05/17 11:18 BBK History Checked No verified bt 09/05/17 11:18 Discharge Exam - Head Exam Head Exam: ATRAUMATIC, NORMOCEPHALIC Discharge Plan - Discharge Medications Prescriptions: Ciprofloxacin HCl [Cipro] 500 mg PO Q12H #12 tablet Nadolol [Corgard] 40 mg PO DAILY #30 tab - Follow Up Plan Condition: STABLE Disposition: HOME/ ROUTINE Instructions: Cirrhosis (DC), Urinary Tract Infection in Men (DC), Esophageal Varices (DC) Additional Instructions: F/U with Dr Roth as scheduled. F/U with Dr Landers(GI) in 4 weeks. Take meds as prescribed including new medications: Nadolol 40 mg daily Cipro 500 mg Q12h for 6 days Return to ED if vomiting, blood in stools, weakness, fever or any concerns. Referrals: Leesa MORELOS,MD Liz [Medical Doctor] - Sanya Roth MD [Staff Provider] -
--- NOTE | 2017-09-07 13:00 | CP.PCM.PN ---
Subjective - Date & Time of Evaluation Date of Evaluation: 09/07/17 Time of Evaluation: 08:00 - Subjective Subjective: 61 y/o M seen at bedside. He feels "ok". Denies CP, dizziness, vomiting, hematemesis, melena, nausea, diarrhea, CP or SOB. Patient is tolerating PO hepatic diet without difficulty. No Acute events overnight. I spoke with GI fellow and patient is cleared to be DC home and f/u as outpatient. Because of a decrease in patient total leukocyte count today Hem-onc was called and 2 doses of Filgrastim were ordered for today and tomorrow. Objective - Vital Signs/Intake and Output Vital Signs (last 24 hours): Temp Pulse Resp BP Pulse Ox 97.9 F 76 20 145/89 96 09/07/17 08:04 09/07/17 08:55 09/07/17 08:04 09/07/17 08:55 09/07/17 08:04 - Medications Medications: Current Medications Acetaminophen (Tylenol 325mg Tab) 650 mg PO Q8 PRN PRN Reason: Fever >100.4 F Atovaquone (Mepron) 750 mg PO DAILY [facility] Last Admin: 09/07/17 09:06 Dose: Not Given Clonazepam (Klonopin) 1 mg PO DAILY [facility] Last Admin: 09/07/17 09:06 Dose: 1 mg Darunavir (Prezista) 600 mg PO DAILY [facility] Last Admin: 09/07/17 08:56 Dose: 600 mg Emtricitabine/Tenofovir (Truvada 200 Mg-300 Mg) 1 tab PO DAILY [facility] Last Admin: 09/07/17 08:56 Dose: 1 tab Escitalopram Oxalate (Lexapro) 10 mg PO DAILY [facility] Last Admin: 09/07/17 08:56 Dose: 10 mg Ceftriaxone Sodium (Rocephin Iv 1 Gm Duplex) 50 mls @ 50 mls/hr IVPB DAILY JESS PRN Reason: Protocol Last Admin: 09/07/17 08:57 Dose: 50 mls/hr Mirtazapine (Remeron) 45 mg PO HS [facility] Last Admin: 09/06/17 21:38 Dose: 45 mg Nadolol (Corgard) 40 mg PO DAILY [facility] Last Admin: 09/07/17 08:55 Dose: 40 mg Ondansetron HCl (Zofran Inj) 4 mg IVP Q6 PRN PRN Reason: Nausea/Vomiting Ritonavir (Norvir) 100 mg PO DAILY [facility]ESS Last Admin: 09/07/17 08:56 Dose: 100 mg - Labs Labs: 09/07/17 05:50 09/07/17 05:50 PT 15.7 Seconds (9.8-13.1) H 09/06/17 08:35 INR 1.4 (0.9-1.2) H 09/06/17 08:35 APTT 53.2 Seconds (25.6-37.1) H 09/05/17 05:15 - Constitutional Appears: Non-toxic, Chronically Ill - Eye Exam Eye Exam: EOMI, PERRL - ENT Exam ENT Exam: Mucous Membranes Moist - Respiratory Exam Respiratory Exam: Clear to Ausculation Bilateral, NORMAL BREATHING PATTERN. absent: Decreased Breath Sounds, Rales - Cardiovascular Exam Cardiovascular Exam: REGULAR RHYTHM, +S1, +S2. absent: Gallop - GI/Abdominal Exam GI & Abdominal Exam: Soft, Normal Bowel Sounds, Organomegaly. absent: Distended , Tenderness, Rebound - Extremities Exam Extremities Exam: Normal Capillary Refill. absent: Calf Tenderness, Tenderness - Neurological Exam Neurological Exam: Alert, Awake, Oriented x3 - Psychiatric Exam Psychiatric exam: Normal Mood - Skin Skin Exam: Normal Color, Warm Assessment and Plan - Assessment and Plan (Free Text) Assessment: 61 y/o M with Hx of HIV and liver cirrhosis presents for gastroenteritis and UTI. Liver cirrhosis w/esophageal varices and portal hypertension -Chronic, Cryptogenic -MELD Score = 13 points 6.0% Estimated 3-Month Mortality -c/w Nadolol 40mg daily. -GI consult appreciated -S/P EDG with banding yesterday Pancytopenia -Chronic -Poss due to liver cirrhosis/Hypersplenism -No active bleeding -Hem-Onc recs consulted. Will f/u recs -Filgrastim 2 units SQ ordered by Hem-onc for today and tomorrow -Patient's ANC 1105---> Mild neutropenia UTI, suspected -Improved -UA positive for WBC, RBC, Nitrates and LE -Denies urinary symptoms -Could be the cause of gastroenteritis -BCx no growth -UCx no growth, prelim, sample taken after 2 days of abx. -C/W Rocephin 1g IV daily(Patient to be discharge with Cipro 500mg BID for 6 days. Rx send to patient's pharmacy today) HIV, chronic -C/W home meds -CD4 115. VL pending -C/W Atovaquone for PCP prophylaxis Prophylaxis -SCDs for now for DVT prophylaxis(Patient increased bleeding risk with low plt and elevated INR) Full code Anticipated DC 09/08/17
[2017-09-07 13:34] LABS: EOSINOPHIL 1 % (0-7); NEUTROPHIL 64 % (42-75); NUCLEATED RED BLOOD CELL 1 % (0-0); TOTAL CELLS COUNTED 100
[2017-09-07 13:38] LABS: LARGE PLATELETS PRESENT
[2017-09-08 06:48] LABS: BASO % 0.3 % (0.0-2.0); EOS # 0.1 K/uL (0.0-0.7); EOS % 1.5 % (0.0-4.0); HEMATOCRIT 30.7 % (35.0-51.0); LYMPH # 0.6 K/uL (1.0-4.3); LYMPH % 8.5 % (20.0-40.0); MEAN CELL VOLUME 75.5 fl (80.0-94.0); MEAN CORPUSCULAR HEMOGLOBIN 24.9 pg (27.0-31.0); MEAN PLATELET VOLUME 10.9 fl (7.2-11.7); MONO # 0.4 K/uL (0.0-0.8); MONO % 5.3 % (0.0-10.0); NEUT # 5.6 K/uL (1.8-7.0); NEUT % 84.4 % (50.0-75.0); RED CELL DISTRIBUTION WIDTH 16.4 % (11.5-14.5); WHITE BLOOD COUNT 6.7 K/uL (4.8-10.8)
[2017-09-08 08:10] VITALS: BP 102/68; PULSE 92; RESP 20; TEMP 99.4; O2SAT 100
[2017-09-08] MEDS: Atovaquone 750 mg/5 ml Susp UD PO SCH ×2 (08:48→08:55)
[2017-09-08] MEDS: Emtricitabine-Tenofovir 200 mg-300 mg Tab PO SCH (08:49)
[2017-09-08] MEDS: cefTRIAXone IV 1 gm in Dextros 50 ML IVPB SCH (08:50)
--- NOTE | 2017-09-08 12:46 | CP.PCM.DIS ---
Provider - Provider Date of Admission: 09/04/17 13:57 Attending physician: Nicolette Chang MD Primary care physician: Dr Roth Consults: Dr Landers(GI) Dr Nael العراقي(hem-onc) Time Spent in preparation of Discharge (in minutes): 35 Diagnosis - Discharge Diagnosis (1) UTI (urinary tract infection) Status: Acute Comment: Improved. Asymptomatic. Ucx no growth. Will finish PO abx at home (2) Pancytopenia Status: Chronic Comment: Improved after receiving 2 doses of filgrastin and plt tranfusions. Asymptomatic. NO active bleeding (3) Gastroenteritis Status: Resolved Comment: Likely due to UTI. Resolved. Hospital Course - Lab Results Lab Results: Micro Results 09/04/17 11:37 Blood Blood Culture - Preliminary NO GROWTH AFTER 4 DAYS 09/04/17 11:37 Blood Blood Culture - Preliminary NO GROWTH AFTER 4 DAYS 09/04/17 13:01 Stool Stool Culture - Final NO SALMONELLA, SHIGELLA OR CAMPYLOBACTER ISOLATED. 09/05/17 19:23 Urine Urine Culture - Final No Growth (<1,000 CFU/ML) Most Recent Lab Values WBC 6.7 K/uL (4.8-10.8) D 09/08/17 06:34 RBC 4.07 Mil/uL (4.40-5.90) L 09/08/17 06:34 Hgb 10.2 g/dL (12.0-18.0) L 09/08/17 06:34 Hct 30.7 % (35.0-51.0) L 09/08/17 06:34 MCV 75.5 fl (80.0-94.0) L 09/08/17 06:34 MCH 24.9 pg (27.0-31.0) L 09/08/17 06:34 MCHC 33.0 g/dL (33.0-37.0) 09/08/17 06:34 RDW 16.4 % (11.5-14.5) H 09/08/17 06:34 Plt Count 51 K/uL (130-400) L 09/08/17 06:34 MPV 10.9 fl (7.2-11.7) 09/08/17 06:34 Neut % (Auto) 84.4 % (50.0-75.0) H 09/08/17 06:34 Lymph % (Auto) 8.5 % (20.0-40.0) L 09/08/17 06:34 [place] % (Auto) 5.3 % (0.0-10.0) 09/08/17 06:34 Eos % (Auto) 1.5 % (0.0-4.0) 09/08/17 06:34 Baso % (Auto) 0.3 % (0.0-2.0) 09/08/17 06:34 Neut # 5.6 K/uL (1.8-7.0) 09/08/17 06:34 Lymph # 0.6 K/uL (1.0-4.3) L 09/08/17 06:34 Martin # 0.4 K/uL (0.0-0.8) 09/08/17 06:34 Eos # 0.1 K/uL (0.0-0.7) 09/08/17 06:34 Baso # 0.0 K/uL (0.0-0.2) 09/08/17 06:34 Neutrophils % (Manual) 64 % (42-75) 09/07/17 05:50 Band Neutrophils % 1 % (0-2) 09/07/17 05:50 Lymphocytes % (Manual) 19 % (20-50) L 09/07/17 05:50 Monocytes % (Manual) 15 % (0-10) H 09/07/17 05:50 Eosinophils % (Manual) 1 % (0-7) 09/07/17 05:50 Plasma Cell % (Manual) (0-0) 09/05/17 05:15 Nucleated RBC % 1 % (0-0) H 09/07/17 05:50 Toxic Granulation Present 09/07/17 05:50 Platelet Estimate Decreased (NORMAL) L 09/07/17 05:50 Large Platelets Present 09/07/17 05:50 Hypochromasia (manual) Slight 09/07/17 05:50 Anisocytosis (manual) Slight 09/07/17 05:50 Ovalocytes Slight 09/07/17 05:50 PT 15.7 Seconds (9.8-13.1) H 09/06/17 08:35 INR 1.4 (0.9-1.2) H 09/06/17 08:35 APTT 53.2 Seconds (25.6-37.1) H 09/05/17 05:15 Sodium 143 mmol/l (132-148) 09/07/17 05:50 Potassium 4.1 MMOL/L (3.6-5.0) 09/07/17 05:50 Chloride 112 mmol/L (98-107) H 09/07/17 05:50 Carbon Dioxide 23 mmol/L (22-30) 09/07/17 05:50 Anion Gap 12 (10-20) 09/07/17 05:50 BUN 14 mg/dl (9-20) 09/07/17 05:50 Creatinine 0.9 mg/dl (0.8-1.5) 09/07/17 05:50 Est GFR ( Amer) > 60 09/07/17 05:50 Est GFR (Non-Af Amer) > 60 09/07/17 05:50 Random Glucose 100 mg/dL (75-110) 09/07/17 05:50 Lactic Acid 1.6 MMOL/L (0.7-2.1) 09/04/17 11:37 Calcium 7.7 mg/dL (8.4-10.2) L 09/07/17 05:50 Total Bilirubin 0.6 mg/dl (0.2-1.3) 09/07/17 05:50 AST 32 U/L (17-59) 09/07/17 05:50 ALT 40 U/L (21-72) 09/07/17 05:50 Alkaline Phosphatase 67 U/L (38-126) 09/07/17 05:50 Troponin I < 0.0120 ng/mL (0.00-0.120) 09/04/17 11:37 Total Protein 7.1 G/DL (6.3-8.2) 09/07/17 05:50 Albumin 2.9 g/dL (3.5-5.0) L 09/07/17 05:50 Globulin 4.2 gm/dL (2.2-3.9) H 09/07/17 05:50 Albumin/Globulin Ratio 0.7 (1.0-2.1) L 09/07/17 05:50 Amylase 212 U/L (30-110) H 09/04/17 11:37 Lipase 322 U/L (23-300) H 09/04/17 11:37 Urine Color [place] (YELLOW) 09/04/17 11:54 Urine Clarity Turbid (Clear) 09/04/17 11:54 Urine pH 6.0 (5.0-8.0) 09/04/17 11:54 Ur Specific [place] 1.017 (1.003-1.030) 09/04/17 11:54 Urine Protein 100 mg/dL (NEGATIVE) 09/04/17 11:54 Urine Glucose (UA) Neg mg/dL (Normal) 09/04/17 11:54 Urine Ketones Negative mg/dL (NEGATIVE) 09/04/17 11:54 Urine Blood Large (NEGATIVE) 09/04/17 11:54 Urine Nitrate Positive (NEGATIVE) H 09/04/17 11:54 Urine Bilirubin Negative (NEGATIVE) 09/04/17 11:54 Urine Urobilinogen 0.2-1.0 mg/dL (0.2-1.0) 09/04/17 11:54 Ur Leukocyte Esterase Large [place]/uL (Negative) 09/04/17 11:54 Urine RBC (Auto) 113 /hpf (0-3) H 09/04/17 11:54 Urine Microscopic WBC 1987 /hpf (0-5) H 09/04/17 11:54 Urine Bacteria Mod (<OCC) H 09/04/17 11:54 Stool Occult Blood Negative (NEGATIVE) 09/04/17 12:55 Absolute Lymphs (Flow) 611 Cells/mcL (850-3900) L 09/05/17 05:15 % CD4 Cells 19 Percent (30-61) L 09/05/17 05:15 Absolute CD4 Count 113 Cells/mcL (490-1740) L 09/05/17 05:15 T-Help/Suppress Ratio 1.46 Ratio (0.86-5.00) 09/05/17 05:15 % CD8 Cells 13 Percent (12-42) 09/05/17 05:15 Absolute CD8 Count 77 Cells/mcL (180-1170) L 09/05/17 05:15 C. difficile Ag & Toxin Negative (NEGATIVE) 09/04/17 13:02 Hep Bs Antigen Negative (NEGATIVE) 09/05/17 05:15 Hep Bs Antibody Positive (NEGATIVE) 09/05/17 05:15 Hep B Core IgM Ab Negative (NEGATIVE) 11/21/17 05:15 Blood Type O POSITIVE 09/05/17 11:18 Blood Type Confirm O POSITIVE 09/05/17 11:34 Antibody Screen Negative 09/05/17 11:18 Crossmatch See Detail 09/05/17 11:18 BBK History Checked No verified bt 09/05/17 11:18 - Hospital Course Hospital Course: 61 y/o M with PMhx of HIV, liver cirrhosis, pancytopenia presented to ED with symptoms of gastroenteritis, diagnosed with UTI and worsening esophageal varice from previous exam. Patient underwent EGD with banding for varices after 4 units of plt transfusion which patient tolerated well. Sign of recent bleeding was found on exam but FOBT during admission was negative. Because of low WBC patient received 2 doses of Filgrastim SQ and today wbc normalized. HIV controlled, VL undetectable. He is asymptomatic, tolerating PO, afebrile and will be DC home and f/u as outpatient with GI and PCP. Home meds: Atovaquone [Mepron] 750 mg PO DAILY Clonazepam [Klonopin] 1 mg PO DAILY Darunavir Ethanolate [Prezista] 600 mg PO DAILY Emtricitabine/Tenofovir Diso 1 tab PO DAILY [Truvada 200 MG-300 MG] Escitalopram [Lexapro] 10 mg PO DAILY Mirtazapine [Remeron Soltab] 45 mg PO DAILY QUEtiapine [SEROquel XR] 150 mg PO DAILY Ritonavir [Norvir] 100 mg PO DAILY New meds: Cipro 500 mg BID for 5 days Nadolol 40 mg daily Discharge Exam - Head Exam Head Exam: ATRAUMATIC, NORMOCEPHALIC - Eye Exam Eye Exam: EOMI, PERRL - ENT Exam ENT Exam: Mucous Membranes Moist - Respiratory Exam Respiratory Exam: Clear to PA & Lateral, NORMAL BREATHING PATTERN. absent: Rhonchi, Wheezes - Cardiovascular Exam Cardiovascular Exam: REGULAR RHYTHM, +S1, +S2. absent: Gallop - GI/Abdominal Exam GI & Abdominal Exam: Normal Bowel Sounds. absent: Distended, Guarding, Rigid, Tenderness - Extremities Exam Extremities exam: full ROM, normal capillary refill - Neurological Exam Neurological exam: Alert, Oriented x3, Reflexes Normal - Psychiatric Exam Psychiatric exam: Normal Affect, Normal Mood - Skin Skin Exam: Normal Color, Warm Discharge Plan - Discharge Medications Prescriptions: Ciprofloxacin HCl [Cipro] 500 mg PO Q12H #12 tablet Nadolol [Corgard] 40 mg PO DAILY #30 tab - Follow Up Plan Condition: STABLE Disposition: HOME/ ROUTINE Instructions: Cirrhosis (DC), Urinary Tract Infection in Men (DC), Esophageal Varices (DC) Additional Instructions: F/U with Dr Roth as scheduled. F/U with Dr Landers(GI) in 4 weeks. Take meds as prescribed including new medications: Nadolol 40 mg daily Cipro 500 mg Q12h for 5 days Return to ED if vomiting, blood in stools, weakness, fever or any concerns. Referrals: Leesa MORELOS,MD Liz [Medical Doctor] - Sanya Roth MD [Staff Provider] -
--- NOTE | 2017-09-08 13:33 | CP.PCM.PN ---
Subjective - Date & Time of Evaluation Date of Evaluation: 09/08/17 Time of Evaluation: 13:31 - Subjective Subjective: Pt has no complaints since he had the variceal capping done 2 days ago. +His wbc is up to 6.7 and hgb 10.2 gms, Platelets are 51. Pt can be discharged when ok with primary. Will sign off case , please recall when needed. Objective - Vital Signs/Intake and Output Vital Signs (last 24 hours): Temp Pulse Resp BP Pulse Ox 99.4 F 92 H 20 102/68 100 09/08/17 08:10 09/08/17 08:48 09/08/17 08:10 09/08/17 08:48 09/08/17 08:10 - Medications Medications: Current Medications Acetaminophen (Tylenol 325mg Tab) 650 mg PO Q8 PRN PRN Reason: Fever >100.4 F Atovaquone (Mepron) 750 mg PO DAILY [facility] Last Admin: 09/08/17 08:55 Dose: Not Given Clonazepam (Klonopin) 1 mg PO DAILY [facility] Last Admin: 09/08/17 08:52 Dose: 1 mg Darunavir (Prezista) 600 mg PO DAILY [facility] Last Admin: 09/08/17 08:49 Dose: 600 mg Emtricitabine/Tenofovir (Truvada 200 Mg-300 Mg) 1 tab PO DAILY [facility] Last Admin: 09/08/17 08:49 Dose: 1 tab Escitalopram Oxalate (Lexapro) 10 mg PO DAILY [facility] Last Admin: 09/08/17 08:48 Dose: 10 mg Ceftriaxone Sodium (Rocephin Iv 1 Gm Duplex) 50 mls @ 50 mls/hr IVPB DAILY JESS PRN Reason: Protocol Last Admin: 09/08/17 08:50 Dose: 50 mls/hr Mirtazapine (Remeron) 45 mg PO HS [facility] Last Admin: 09/07/17 21:26 Dose: 45 mg Nadolol (Corgard) 40 mg PO DAILY [facility] Last Admin: 09/08/17 08:48 Dose: 40 mg Ondansetron HCl (Zofran Inj) 4 mg IVP Q6 PRN PRN Reason: Nausea/Vomiting Ritonavir (Norvir) 100 mg PO DAILY [facility] Last Admin: 09/08/17 08:48 Dose: 100 mg - Labs Labs: 09/08/17 06:34 09/07/17 05:50 PT 15.7 Seconds (9.8-13.1) H 09/06/17 08:35 INR 1.4 (0.9-1.2) H 09/06/17 08:35 APTT 53.2 Seconds (25.6-37.1) H 09/05/17 05:15
== END 2017-09-08 14:30 | disposition home or self-care (01) | DRG 690 ==
LOC: H.ER 10:29 → H.ERHOLD 13:57 → H.MEDSURG1 15:04
PROVIDERS: ADMIT Family Medicine Geriatric Medicine; ATTEND Family Medicine Geriatric Medicine
PROC: 3E0234Z Introduction of Serum, Toxoid and Vaccine into Muscle, Percutaneous Approach (ICD-10-PCS; principal; 2017-09-04)
PROC: 6A551Z2 Pheresis of Platelets, Multiple (ICD-10-PCS; 2017-09-06)
DX: N39.0 Urinary tract infection, site not specified (principal); D61.818 Other pancytopenia; I85.10 Secondary esophageal varices without bleeding; K76.6 Portal hypertension; A08.4 Viral intestinal infection, unspecified; K74.69 Other cirrhosis of liver; Z23 Encounter for immunization; D73.1 Hypersplenism; Z21 Asymptomatic human immunodeficiency virus [HIV] infection status; F32.9 Major depressive disorder, single episode, unspecified

== ENCOUNTER 2017-10-23 10:41 | Emergency (ER) | payer MEDICARE ==
[2017-10-23 10:41] VITALS: BMI 22.8
--- NOTE | 2017-10-23 12:52 | ED PDOC ---
HPI: General Adult Time Seen by Provider: 10/23/17 12:40 Chief Complaint (Nursing): Pain, Chronic Chief Complaint (Provider): Body pain History Per: Patient History/Exam Limitations: no limitations Onset/Duration Of Symptoms: Other (year) Additional Complaint(s): Patient is a 62 y/o male with a past medical history of HIV, esophageal varices , and cirrhosis presenting to the emergency department for acute on chronic body pain that has started a year ago. Reports that he has been sent to seen an arthritis specialist and a neurologist (still pending evaluation). Notes concern for recent history of bleeding. Denies any other complaints. PCP: Dr. Adalid Roth Past Medical History Reviewed: Historical Data, Nursing Documentation, Vital Signs - Medical History PMH: Arthritis, Depression, HIV Denies: Chronic Kidney Disease - Surgical History Surgical History: Endoscopy - Family History Family History: States: Unknown Family Hx - Social History Current smoker - smoking cessation education provided: No Ex-Smoker (has not smoked in the last 12 months): No Alcohol: None Drugs: Denies - Home Medications Home Medications: Ambulatory Orders Medication Instructions Recorded Atovaquone [Mepron] 750 mg PO DAILY 06/06/17 Clonazepam [Klonopin] 1 mg PO DAILY 06/06/17 Darunavir Ethanolate [Prezista] 600 mg PO DAILY 06/06/17 Emtricitabine/Tenofovir Diso 1 tab PO DAILY 06/06/17 [Truvada 200 MG-300 MG] Escitalopram [Lexapro] 10 mg PO DAILY 06/06/17 Mirtazapine [Remeron] 45 mg PO DAILY 06/06/17 QUEtiapine [Seroquel XR] 150 mg PO DAILY 06/06/17 Ritonavir [Norvir] 100 mg PO DAILY 06/06/17 Ciprofloxacin HCl [Cipro] 500 mg PO Q12H #12 tablet 09/07/17 Nadolol [Corgard] 40 mg PO DAILY #30 tab 09/07/17 traMADol [Ultram] 50 mg PO Q12 PRN #10 tab 10/23/17 - Allergies Allergies/Adverse Reactions: Allergies Allergy/AdvReac Type Severity Reaction Status Date / Time No Known Allergies Allergy Verified 09/04/17 10:53 Review of Systems ROS Statement: Except As Marked, All Systems Reviewed And Found Negative Constitutional: Positive for: Other (general body pain) Physical Exam - Reviewed Nursing Documentation Reviewed: Yes Vital Signs Reviewed: Yes - Physical Exam Appears: Positive for: Well, Non-toxic, No Acute Distress Head Exam: Positive for: ATRAUMATIC, NORMAL INSPECTION, NORMOCEPHALIC Skin: Positive for: Normal Color, Warm, Dry Eye Exam: Positive for: Normal appearance Neck: Positive for: Normal Cardiovascular/Chest: Positive for: Regular Rate, Rhythm. Negative for: Murmur Respiratory: Positive for: Normal Breath Sounds. Negative for: Accessory Muscle Use, Respiratory Distress Gastrointestinal/Abdominal: Positive for: Normal Exam, Soft. Negative for: Tenderness Extremity: Positive for: Normal ROM. Negative for: Pedal Edema Neurologic/Psych: Positive for: Alert, Oriented (x3) Medical Decision Making Medical Decision Making: Discussed case with family assistant who recommends that patient see a senior case manager to arrange for a follow up appointment. Will prescribe Tramadol. Patient is stable for discharge. Instructed patient to return to ED if symptoms worsen. ~ Scribe Attestation: Documented by Virgen Adam, acting as a scribe for LYNNE Guerrero. Provider Scribe Attestation: All medical record entries made by the Scribe were at my direction and personally dictated by me. I have reviewed the chart and agree that the record accurately reflects my personal performance of the history, physical exam, medical decision making, and the department course for this patient. I have also personally directed, reviewed, and agree with the discharge instructions and disposition. Disposition - Clinical Impression Clinical Impression: Chronic pain - Patient ED Disposition Is Patient to be Admitted: No - Disposition Disposition: Routine/Home Disposition Time: 13:04 Condition: FAIR Prescriptions: traMADol [Ultram] 50 mg PO Q12 PRN #10 tab PRN Reason: Pain, Moderate (4-7) Instructions: Chronic Pain (ED) Forms: [facility] ([facility])
== END 2017-10-23 13:04 | disposition home or self-care (01) ==
LOC: H.ER 10:41
DX: G89.29 Other chronic pain (principal); M79.1 Myalgia; Z86.59 Personal history of other mental and behavioral disorders; K74.60 Unspecified cirrhosis of liver; M19.90 Unspecified osteoarthritis, unspecified site; Z87.891 Personal history of nicotine dependence; Z21 Asymptomatic human immunodeficiency virus [HIV] infection status

== ENCOUNTER 2017-12-08 10:25 | Inpatient (IN) | payer MEDICARE ==
[2017-12-08 10:42] VITALS: BMI 28.2
[2017-12-08] MEDS: Sodium Chloride 0.9% 1,000 ML IV SCH ×4 (11:22→23:36)
--- NOTE | 2017-12-08 11:28 | ED PDOC ---
HPI: Chest Pain Time Seen by Provider: 12/08/17 10:50 Chief Complaint (Nursing): Chest Pain Chief Complaint (Provider): Chest Pain History Per: Patient History/Exam Limitations: no limitations Onset/Duration Of Symptoms: Days (x2-3) Current Symptoms Are (Timing): Still Present Additional Complaint(s): 62 year old male with medical history of HIV, presents to the emergency department with a complaint of bilateral chest pain radiating to right-sided back associated with shortness of breath and productive cough with green phlegm ongoing for 2-3 days. Denied any fever, chills, vomiting, diarrhea, night sweats or decreased appetite. Patient reported compliance with HIV medications but did not take PCP prophylaxis and does not know current viral load or CD4 count. PMD: Sanya Mays MD Past Medical History Reviewed: Historical Data, Nursing Documentation, Vital Signs Vital Signs: Last Vital Signs Temp 98.4 F 12/08/17 10:42 Pulse 109 H 12/08/17 16:31 Resp 19 12/08/17 16:31 BP 106/64 12/08/17 16:31 Pulse Ox 95 12/08/17 16:31 - Medical History PMH: Arthritis, Depression, HIV Denies: Chronic Kidney Disease - Surgical History Surgical History: Endoscopy Denies: No Surg Hx - Family History Family History: States: Unknown Family Hx - Social History Current smoker - smoking cessation education provided: No Ex-Smoker (has not smoked in the last 12 months): No Alcohol: None Drugs: Denies - Home Medications Home Medications: Ambulatory Orders Medication Instructions Recorded Clonazepam [Klonopin] 1 mg PO HS 06/06/17 Emtricitabine/Tenofovir Diso 1 tab PO DAILY 06/06/17 [Truvada 200 MG-300 MG] Mirtazapine [Remeron] 45 mg PO DAILY 06/06/17 Ritonavir [Norvir] 100 mg PO DAILY 06/06/17 Amitriptyline [Elavil] 10 mg PO HS 12/08/17 DULoxetine [Cymbalta] 60 mg PO HS 12/08/17 Darunavir [Prezista] 800 mg PO DAILY 12/08/17 Escitalopram [Lexapro] 20 mg PO HS 12/08/17 Ferrous Sulfate [Feosol] 325 mg PO Q12 12/08/17 Naproxen [Naprosyn] 500 mg PO Q12 PRN 12/08/17 QUEtiapine [Seroquel] 100 mg PO HS 12/08/17 Quetiapine Fumarate [Seroquel] 50 mg PO DAILY 12/08/17 SulfaSALAzine [Azulfidine] 500 mg PO Q12 12/08/17 - Allergies Allergies/Adverse Reactions: Allergies Allergy/AdvReac Type Severity Reaction Status Date / Time No Known Allergies Allergy Verified 09/04/17 10:53 Review of Systems ROS Statement: Except As Marked, All Systems Reviewed And Found Negative Constitutional: Negative for: Fever, Chills, Sweats Cardiovascular: Positive for: Chest Pain Respiratory: Positive for: Cough, Shortness of Breath, Sputum (green) Gastrointestinal: Negative for: Vomiting, Diarrhea, Other (decreased appetite) Musculoskeletal: Positive for: Back Pain (right-sided) Physical Exam - Reviewed Nursing Documentation Reviewed: Yes Vital Signs Reviewed: Yes - Physical Exam Appears: Positive for: No Acute Distress Skin: Positive for: Pallor. Negative for: Normal Color, Rash ENT: Positive for: Other (dehydrated appearance) Neck: Positive for: Normal, Painless ROM, Supple. Negative for: Pain On Movement Of Neck Cardiovascular/Chest: Positive for: Regular Rate, Rhythm, Chest Non Tender. Negative for: Murmur Respiratory: Positive for: Normal Breath Sounds. Negative for: Decreased Breath Sounds, Wheezing Gastrointestinal/Abdominal: Positive for: Normal Exam, Soft. Negative for: Tenderness Extremity: Positive for: Normal ROM (upper/lower). Negative for: Pedal Edema ( bilateral), Deformity (or clubbing of upper/lower extremities) Neurologic/Psych: Positive for: Alert, Oriented - Laboratory Results Result Diagrams: 12/08/17 11:20 12/08/17 11:20 - ECG O2 Sat by Pulse Oximetry: 94 (RA) Pulse Ox Interpretation: Normal Medical Decision Making Medical Decision Making: Initial Impression: Cough; Viral illness vs. pneumonia Initial Plan: * ABG * EKG * CMP * LDH * Tropinin I * CBC * PTT * PT * CXR * NS 1,000ml IV per 250mls/hr ~ Scribe Attestation: Documented by Ronna Pollock, acting as a scribe for Mary Aranda MD. Provider Scribe Attestation: All medical record entries made by the Scribe were at my direction and personally dictated by me. I have reviewed the chart and agree that the record accurately reflects my personal performance of the history, physical exam, medical decision making, and the department course for this patient. I have also personally directed, reviewed, and agree with the discharge instructions and disposition. 4.30p - patient seen by FP residents. In discussion with hematology, patient admitted as observation for platelet transfusion. Disposition - Clinical Impression Clinical Impression: Thrombocytopenia - Patient ED Disposition Is Patient to be Admitted: Yes Doctor Will See Patient In The: Hospital - Disposition Disposition: Transfer of Care Disposition Time: 16:00 Condition: FAIR Forms: [id number] (Danish) - Pt Status Changed To: Hospital Disposition Of: Observation - POA Present On Arrival: None
[2017-12-08 11:30] LABS: ABG ALLEN TEST YES; ARTERIAL BLOOD GAS HCO3 25.5 mmol/L (21-28); ARTERIAL BLOOD GAS O2 SAT 100.4 % (95-98); ARTERIAL BLOOD GAS PCO2 31 mm/Hg (35-45); ARTERIAL BLOOD GAS PH 7.49 (7.35-7.45); ARTERIAL BLOOD GAS PO2 86 mm/Hg (80-100); ARTERIAL BLOOD GAS TCO2 24.6 mmol/L (22-28)
[2017-12-08 11:31] LABS: BASO % 0.1 % (0.0-2.0); EOS # 0.1 K/uL (0.0-0.7); EOS % 1.9 % (0.0-4.0); HEMOGLOBIN 11.2 g/dL (12.0-18.0); LYMPH # 0.4 K/uL (1.0-4.3); LYMPH % 14.3 % (20.0-40.0); MEAN CELL VOLUME 74.9 fl (80.0-94.0); MEAN CORPUSCULAR HEMOGLOBIN 24.7 pg (27.0-31.0); MEAN PLATELET VOLUME 10.5 fl (7.2-11.7); MONO # 0.3 K/uL (0.0-0.8); MONO % 11.1 % (0.0-10.0); NEUT # 2.3 K/uL (1.8-7.0); NEUT % 72.6 % (50.0-75.0); NRBC % 0.5 % (0.0-0.0); RBC 4.52 Mil/uL (4.40-5.90); RED CELL DISTRIBUTION WIDTH 17.8 % (11.5-14.5); WHITE BLOOD COUNT 3.1 K/uL (4.8-10.8)
[2017-12-08 11:40] LABS: ALB/GLOB RATIO 0.6 (1.0-2.1); ALBUMIN 3.2 g/dL (3.5-5.0); ALT/SGPT 32 U/L (21-72); AST/SGOT 25 U/L (17-59); BLOOD UREA NITROGEN 17 mg/dl (9-20); CALCIUM 8.3 mg/dL (8.4-10.2); GFR AFRICAN-AMERICAN > 60; GFR NON-AFRICAN AMERICAN > 60
--- NOTE | 2017-12-08 11:53 | RAD ---
HISTORY: cp, cough, phlem, dyspnea COMPARISON: Portable chest 09/04/2017. TECHNIQUE: Chest PA and lateral FINDINGS: LUNGS: Trace linear atelectasis or fibrosis seen at the bilateral lung bases. No acute infiltrate bilaterally. PLEURA: No significant pleural effusion identified. No pneumothorax apparent. CARDIOVASCULAR: Normal. OSSEOUS STRUCTURES: No significant abnormalities. VISUALIZED UPPER ABDOMEN: Normal. OTHER FINDINGS: None. IMPRESSION: No interval acute cardiopulmonary disease appreciated.
--- NOTE | 2017-12-08 18:59 | CP.PCM.HP ---
History of Present Illness - History of Present Illness History of Present Illness: 62 YO Pleasant M w/ h/o AIDS on HAART, cirrhosis who presented to the ER w/ b/l chest pain radiating to the back which he describes as "tightness". Chest pain was associated with palpitation and was feeling his heart race. Currently he states the chest pain has resolved after receiving IV fluids. He has not been eating or hydrating much over the last 2 days. He has been having intermittent cough over the last 2-3 days which is productive in nature, with some greenish sputum however denies any blood. Over the last 2 days he has had a decreased appetite as well because he says that he feels constipated, he last had a normal soft bowl movement three days ago. States he occasionally has a small amount of bright red blood in his stools. - Over the past year patient has had increase difficultly ambulating, he is able to walk without assistance but has difficulty. Denies any falls. Denies any dizziness, nausea, vomiting, fever, chills, or night sweat. PMHx: HIV on HAART, Cirrhosis, History of TB, Rheumatoid arthritis, H/O platelet transfusion last year PSHX: Esophageal Varices s/p 5 bands 09/06/17 Family Hx: Denies Social Hx: Past history of alcohol abuse, cocaine and IV drug abuse in . ER course: Initial Plan: * ABG : PH 7.49, PCO2:31, * EKG: No ischemic changes noted * CMP * LDH * Tropinin I x1 neg * CBC: Hb 11.2, MCV : 74, Platelet 16 * PT: INR * CXR: No active disease noted * NS 1,000ml IV per 250mls/hr * PMD: Dr. Mays Rhematologist: Dr. Dangelo GI: Dr. Phipps Present on Admission - Present on Admission Any Indicators Present on Admission: No Review of Systems - Review of Systems All systems: reviewed and no additional remarkable complaints except Past Patient History - Infectious Disease Hx of Infectious Diseases: None - Past Medical History & Family History Past Medical History?: Yes - Past Social History Alcohol: None Drugs: Denies - CARDIAC Hx Cardiac Disorders: No - PULMONARY Hx Respiratory Disorders: No - NEUROLOGICAL Hx Neurological Disorder: No - HEENT Hx HEENT Problems: No - RENAL Hx Chronic Kidney Disease: No - ENDOCRINE/METABOLIC Hx Endocrine Disorders: No - HEMATOLOGICAL/ONCOLOGICAL Hx Human Immunodeficiency Virus (HIV): Yes - INTEGUMENTARY Hx Dermatological Problems: No - MUSCULOSKELETAL/RHEUMATOLOGICAL Hx Arthritis: Yes - GASTROINTESTINAL Hx Gastrointestinal Disorders: Yes Hx Esophageal Varices: Yes - GENITOURINARY/GYNECOLOGICAL Hx Genitourinary Disorders: No - PSYCHIATRIC Hx Depression: Yes - SURGICAL HISTORY Hx Surgeries: Yes - ANESTHESIA Hx Anesthesia: No Hx Anesthesia Reactions: No Hx Malignant Hyperthermia: No Meds Allergies/Adverse Reactions: Allergies Allergy/AdvReac Type Severity Reaction Status Date / Time No Known Allergies Allergy Verified 09/04/17 10:53 Physical Exam - Constitutional Appears: No Acute Distress - Head Exam Head Exam: NORMAL INSPECTION - ENT Exam ENT Exam: Mucous Membranes Dry - Respiratory Exam Respiratory Exam: Clear to Auscultation Bilateral, NORMAL BREATHING PATTERN. absent: Rhonchi, Wheezes - Cardiovascular Exam Cardiovascular Exam: REGULAR RHYTHM, +S1, +S2 - GI/Abdominal Exam GI & Abdominal Exam: Normal Bowel Sounds, Soft. absent: Tenderness - Extremities Exam Extremities exam: Positive for: normal inspection. Negative for: calf tenderness - Back Exam Back exam: absent: CVA tenderness (L), CVA tenderness (R) - Neurological Exam Neurological exam: Alert, CN II-XII Intact, Oriented x3 - Skin Skin Exam: Normal Color, Warm Results - Vital Signs Recent Vital Signs: Last Vital Signs Temp 98.4 F 12/08/17 10:42 Pulse 109 H 12/08/17 16:31 Resp 19 12/08/17 16:31 BP 106/64 12/08/17 16:31 Pulse Ox 94 L 12/08/17 16:44 - Labs Result Diagrams: 12/08/17 11:20 12/08/17 11:20 Labs: Laboratory Results - last 24 hr 12/08/17 12/08/17 12/08/17 11:05 11:20 11:20 WBC 3.1 L RBC 4.52 Hgb 11.2 L Hct 33.9 L MCV 74.9 L D MCH 24.7 L MCHC 33.0 RDW 17.8 H Plt Count 16 L* D MPV 10.5 Neut % (Auto) 72.6 Lymph % (Auto) 14.3 L [place] % (Auto) 11.1 H Eos % (Auto) 1.9 Baso % (Auto) 0.1 Neut # (Auto) 2.3 Lymph # (Auto) 0.4 L [place] # (Auto) 0.3 Eos # (Auto) 0.1 Baso # (Auto) 0.0 pCO2 31 L pO2 86 HCO3 25.5 ABG pH 7.49 H ABG Total CO2 24.6 ABG O2 Saturation 100.4 H ABG Base Excess 0.8 Cesar Test Yes ABG Potassium 4.4 A-a O2 Difference 25.0 Sodium 129.0 L 132 Chloride 102.0 100 Glucose 116 H Lactate 1.6 FiO2 21.0 Blood Gas Comments room air Potassium 4.3 Carbon Dioxide 22 Anion Gap 14 BUN 17 Creatinine 1.0 Est GFR ( Amer) > 60 Est GFR (Non-Af Amer) > 60 Random Glucose 120 H Calcium 8.3 L Total Bilirubin 1.5 H AST 25 ALT 32 Alkaline Phosphatase 106 Lactate Dehydrogenase 337 Troponin I < 0.0120 Total Protein 8.5 H Albumin 3.2 L Globulin 5.4 H Albumin/Globulin Ratio 0.6 L Arterial Blood Potassium 4.4 Assessment & Plan - Assessment and Plan (Free Text) Assessment: 61 y/o M with Hx of HIV and liver cirrhosis presents chest pain , SOB and cough Liver cirrhosis w/esophageal varices and portal hypertension -Chronic, Cryptogenic -S/P EDG with banding on previous visit -MELD Score : 20, 3 month month mortality is 19.6 -GI consult appreciated - C/W Nadolol 40mg daily as recommended by GI on the last visit Pancytopenia -Chronic -Poss due to liver cirrhosis/Hypersplenism -No active bleeding - Absolute neutrophil count: 2251 -Hem-Onc recs consulted. Will f/u recs - Ordered 2 units platelet transfusion - spoke with heme onc. Patient will require bone marrow biopsy - F/U with manual platelet count Cough - Initial chest X ray : Does not show any active disease - Productive in nature - Patient spiked low grade fever - O2 saturation : 94% on room air - Empirical IV antibiotic treatment for CAP - Repeat chest X ray in the AM AIDS -C/W home meds -CD4 143. VL: <20 PCP prophylaxis d/c by Primary care physician. Rheumatoid arthritis - Hold sulfasalazine. Patient states he hasn't been taking it because of abdominal discomfort. - Fall precautions Prophylaxis -SCDs for now for DVT prophylaxis(Patient increased bleeding risk with low plt and elevated INR) Full code
[2017-12-08] MEDS ORDERED: Naproxen 500 MG TAB PO PRN (19:00)
[2017-12-08] MEDS ORDERED: Sodium Chloride 3% for Inhalation 4 ML VIAL.NEB IH PRN (20:49)
[2017-12-08 21:47] LABS: INR 1.6 (0.9-1.2); PARTIAL THROMBOPLASTIN TIME 59.1 Seconds (25.6-37.1); PROTHROMBIN TIME 17.7 Seconds (9.8-13.1)
[2017-12-08] MEDS ORDERED: Docusate-Senna 50 mg-8.6 mg Tab PO SCH (22:00)
--- NOTE | 2017-12-08 22:49 | CARD ---
APPROVED REPORT EKG Measurement Heart [id number] <Conclusion> Sinus tachycardia Possible Left atrial enlargement Borderline ECG
[2017-12-09] MEDS: Sodium Chloride 0.9% 1,000 ML IV SCH ×12 (00:39→23:15)
[2017-12-09] MEDS: cefTRIAXone 2 GM in Sodium Chloride 0.9% 100 ML IVPB SCH ×2 (04:01→09:23)
[2017-12-09] MEDS: Azithromycin 500 MG in Sodium Chloride 0.9% 250 ML IVPB SCH ×2 (05:09→09:19)
[2017-12-09 05:17] LABS: URINE BILIRUBIN NEGATIVE (NEGATIVE); URINE BLOOD NEGATIVE (NEGATIVE); URINE CLARITY CLEAR (Clear); URINE COLOR YELLOW (YELLOW); URINE GLUCOSE (UA) NEG (Normal); URINE LEUKOCYTE ESTERASE NEG Leu/uL (Negative); URINE NITRATE NEGATIVE (NEGATIVE); URINE PROTEIN NEGATIVE (NEGATIVE)
[2017-12-09 05:21] LABS: ALB/GLOB RATIO 0.6 (1.0-2.1); ALBUMIN 2.9 g/dL (3.5-5.0); ALT/SGPT 37 U/L (21-72); AST/SGOT 23 U/L (17-59); BLOOD UREA NITROGEN 18 mg/dl (9-20); CALCIUM 8.2 mg/dL (8.4-10.2); GFR AFRICAN-AMERICAN > 60; GFR NON-AFRICAN AMERICAN > 60
[2017-12-09] MEDS ORDERED: Azithromycin 500 MG in Sodium Chloride 0.9% 250 ML IVPB SCH (09:00)
[2017-12-09] MEDS: Emtricitabine-Tenofovir 200 mg-300 mg Tab PO SCH (09:17)
--- NOTE | 2017-12-09 09:51 | CP.PCM.CON ---
History of Present Illness - History of Present Illness History of Present Illness: This is a 62 ys old male who was admitted for thrombocytopenia. I have seen him before about 5 mon5hs ago. At this this time also his platelets had been very low. He has a h/o alcoholic liver disease, with hypersplenism due to portal hypertension. Last visit he has bleeding varices which were banded and he did much better with the platelet count going up to 56.( he had needed a platelet transfusion prior to the banding). Now he has no c/o bleeding from any site, no ecchymosis. He is HIV positive on retroviral drugs which according to him he takes regularly. Now he was admitted with c/o severe cough with a greenish expectoration, and he developed chest pain . No fever, chills or vomiting.No lino or hemetemesis In the ER his WBC was 3.1, hgb 11.2 and platelets of 16. This platelet count is lower than his usual count of 45-50. Past Patient History - Infectious Disease Hx of Infectious Diseases: None - Past Medical History & Family History Past Medical History?: Yes - Past Social History Alcohol: None Drugs: Denies - CARDIAC Hx Cardiac Disorders: No - PULMONARY Hx Respiratory Disorders: No - NEUROLOGICAL Hx Neurological Disorder: No - HEENT Hx HEENT Problems: No - RENAL Hx Chronic Kidney Disease: No - ENDOCRINE/METABOLIC Hx Endocrine Disorders: No - HEMATOLOGICAL/ONCOLOGICAL Hx Human Immunodeficiency Virus (HIV): Yes - INTEGUMENTARY Hx Dermatological Problems: No - MUSCULOSKELETAL/RHEUMATOLOGICAL Hx Arthritis: Yes - GASTROINTESTINAL Hx Gastrointestinal Disorders: Yes Hx Esophageal Varices: Yes - GENITOURINARY/GYNECOLOGICAL Hx Genitourinary Disorders: No - PSYCHIATRIC Hx Depression: Yes - SURGICAL HISTORY Hx Surgeries: Yes - ANESTHESIA Hx Anesthesia: No Hx Anesthesia Reactions: No Hx Malignant Hyperthermia: No Meds Allergies/Adverse Reactions: Allergies Allergy/AdvReac Type Severity Reaction Status Date / Time No Known Allergies Allergy Verified 09/04/17 10:53 - Medications Medications: Current Medications Amitriptyline HCl (Elavil) 10 mg PO HS [facility] Last Admin: 12/08/17 22:36 Dose: 10 mg Clonazepam (Klonopin) 1 mg PO HS [facility] Last Admin: 12/08/17 22:36 Dose: 1 mg Darunavir (Prezista) 800 mg PO DAILY [facility] Last Admin: 12/09/17 09:16 Dose: 800 mg Docusate Sodium (Colace) 100 mg PO BID [facility] Last Admin: 12/09/17 09:16 Dose: 100 mg Duloxetine HCl (Cymbalta) 60 mg PO HS [facility] Last Admin: 12/08/17 22:35 Dose: 60 mg Emtricitabine/Tenofovir (Truvada 200 Mg-300 Mg) 1 tab PO DAILY [facility] Last Admin: 12/09/17 09:17 Dose: 1 tab Escitalopram Oxalate (Lexapro) 20 mg PO HS [facility] Last Admin: 12/08/17 22:37 Dose: 20 mg Ferrous Sulfate (Feosol) 325 mg PO Q12 [facility] Last Admin: 12/09/17 09:17 Dose: 325 mg Sodium Chloride (Sodium Chloride 0.9%) 1,000 mls @ 250 mls/hr IV .Q4H [facility] Last Admin: 12/09/17 09:18 Dose: Not Given Ceftriaxone Sodium 2 gm/ (Sodium Chloride) 100 mls @ 200 mls/hr IVPB DAILY [facility] PRN Reason: Protocol Last Admin: 12/09/17 09:23 Dose: Not Given Azithromycin 500 mg/ Sodium (Chloride) 250 mls @ 250 mls/hr IVPB DAILY [facility] PRN Reason: Protocol Last Admin: 12/09/17 09:19 Dose: Not Given Sodium Chloride (Sodium Chloride 0.9%) 1,000 mls @ 150 mls/hr IV .Q6H40M [facility] Stop: 12/10/17 02:19 Last Admin: 12/09/17 09:18 Dose: Not Given Mirtazapine (Remeron) 45 mg PO DAILY [facility] Last Admin: 12/09/17 09:16 Dose: 45 mg Nadolol (Corgard) 40 mg PO DAILY [facility] Last Admin: 12/09/17 09:17 Dose: 40 mg Naproxen (Naproxen) 500 mg PO Q12 PRN PRN Reason: Pain, moderate (4-7) Quetiapine Fumarate (Seroquel) 100 mg PO [facility] Last Admin: 12/08/17 22:37 Dose: 100 mg Quetiapine Fumarate (Seroquel) 50 mg PO DAILY [facility] Last Admin: 12/09/17 09:18 Dose: 50 mg Ritonavir (Norvir) 100 mg PO DAILY [facility] Last Admin: 12/09/17 09:16 Dose: 100 mg Sennosides (Senokot Tab) 8.6 mg PO HS [facility] Last Admin: 12/08/17 22:37 Dose: Not Given Physical Exam - Additional Findings Additional findings: P/E' alert,well oriented in no distress. no more chest pain neck; supple, no adenopathy Chest; Clear, no rales or rhonchi Heart; RSR, no murmur Abd; soft, no mass, spleen 1cm below left costal margin Results - Vital Signs Recent Vital Signs: Last Vital Signs Temp 98.8 F 12/09/17 08:22 Pulse 95 H 12/09/17 09:17 Resp 20 12/09/17 08:22 BP 104/66 12/09/17 09:17 Pulse Ox 94 L 12/09/17 08:22 - Labs Result Diagrams: 12/08/17 11:20 12/09/17 04:33 Labs: Laboratory Results - last 24 hr 12/08/17 12/08/17 12/08/17 11:05 11:20 11:20 WBC 3.1 L RBC 4.52 Hgb 11.2 L Hct 33.9 L MCV 74.9 L D MCH 24.7 L MCHC 33.0 RDW 17.8 H Plt Count 16 L* D Manual Plt Count MPV 10.5 Neut % (Auto) 72.6 Lymph % (Auto) 14.3 L [place] % (Auto) 11.1 H Eos % (Auto) 1.9 Baso % (Auto) 0.1 Neut # (Auto) 2.3 Lymph # (Auto) 0.4 L [place] # (Auto) 0.3 Eos # (Auto) 0.1 Baso # (Auto) 0.0 PT INR APTT pCO2 31 L pO2 86 HCO3 25.5 ABG pH 7.49 H ABG Total CO2 24.6 ABG O2 Saturation 100.4 H ABG Base Excess 0.8 Cesar Test Yes ABG Potassium 4.4 A-a O2 Difference 25.0 Sodium 129.0 L 132 Chloride 102.0 100 Glucose 116 H Lactate 1.6 FiO2 21.0 Blood Gas Comments room air Potassium 4.3 Carbon Dioxide 22 Anion Gap 14 BUN 17 Creatinine 1.0 Est GFR ( Amer) > 60 Est GFR (Non-Af Amer) > 60 Random Glucose 120 H Calcium 8.3 L Total Bilirubin 1.5 H AST 25 ALT 32 Alkaline Phosphatase 106 Ammonia Lactate Dehydrogenase 337 Troponin I < 0.0120 Total Protein 8.5 H Albumin 3.2 L Globulin 5.4 H Albumin/Globulin Ratio 0.6 L Arterial Blood Potassium 4.4 Urine Color Urine Clarity Urine pH Ur Specific [place] Urine Protein Urine Glucose (UA) Urine Ketones Urine Blood Urine Nitrate Urine Bilirubin Urine Urobilinogen Ur Leukocyte Esterase Urine RBC (Auto) Urine Microscopic WBC Blood Type Antibody Screen BBK History Checked 12/08/17 12/08/17 12/08/17 20:04 21:25 21:25 WBC RBC Hgb Hct MCV MCH MCHC RDW Plt Count Manual Plt Count MPV Neut % (Auto) Lymph % (Auto) [place] % (Auto) Eos % (Auto) Baso % (Auto) Neut # (Auto) Lymph # (Auto) [place] # (Auto) Eos # (Auto) Baso # (Auto) PT 17.7 H INR 1.6 H APTT 59.1 H pCO2 pO2 HCO3 ABG pH ABG Total CO2 ABG O2 Saturation ABG Base Excess Cesar Test ABG Potassium A-a O2 Difference Sodium Chloride Glucose Lactate FiO2 Blood Gas Comments Potassium Carbon Dioxide Anion Gap BUN Creatinine Est GFR ( Amer) Est GFR (Non-Af Amer) Random Glucose Calcium Total Bilirubin AST ALT Alkaline Phosphatase Ammonia Lactate Dehydrogenase Troponin I < 0.0120 Total Protein Albumin Globulin Albumin/Globulin Ratio Arterial Blood Potassium Urine Color Urine Clarity Urine pH Ur Specific [place] Urine Protein Urine Glucose (UA) Urine Ketones Urine Blood Urine Nitrate Urine Bilirubin Urine Urobilinogen Ur Leukocyte Esterase Urine RBC (Auto) Urine Microscopic WBC Blood Type O POSITIVE Antibody Screen Negative BBK History Checked Patient has bt 12/08/17 12/09/17 12/09/17 21:25 00:30 04:33 WBC RBC Hgb Hct MCV MCH MCHC RDW Plt Count Manual Plt Count 29 L* MPV Neut % (Auto) Lymph % (Auto) [place] % (Auto) Eos % (Auto) Baso % (Auto) Neut # (Auto) Lymph # (Auto) [place] # (Auto) Eos # (Auto) Baso # (Auto) PT INR APTT pCO2 pO2 HCO3 ABG pH ABG Total CO2 ABG O2 Saturation ABG Base Excess Cesar Test ABG Potassium A-a O2 Difference Sodium 134 Chloride 101 Glucose Lactate FiO2 Blood Gas Comments Potassium 4.4 Carbon Dioxide 22 Anion Gap 15 BUN 18 Creatinine 0.9 Est GFR ( Amer) > 60 Est GFR (Non-Af Amer) > 60 Random Glucose 115 H Calcium 8.2 L Total Bilirubin 1.3 AST 23 ALT 37 Alkaline Phosphatase 89 Ammonia 25 Lactate Dehydrogenase Troponin I < 0.0120 Total Protein 7.9 Albumin 2.9 L Globulin 4.9 H Albumin/Globulin Ratio 0.6 L Arterial Blood Potassium Urine Color Urine Clarity Urine pH Ur Specific [place] Urine Protein Urine Glucose (UA) Urine Ketones Urine Blood Urine Nitrate Urine Bilirubin Urine Urobilinogen Ur Leukocyte Esterase Urine RBC (Auto) Urine Microscopic WBC Blood Type Antibody Screen BBK History Checked 12/09/17 12/09/17 04:43 04:46 WBC RBC Hgb Hct MCV MCH MCHC RDW Plt Count Manual Plt Count 36 L* MPV Neut % (Auto) Lymph % (Auto) [place] % (Auto) Eos % (Auto) Baso % (Auto) Neut # (Auto) Lymph # (Auto) [place] # (Auto) Eos # (Auto) Baso # (Auto) PT INR APTT pCO2 pO2 HCO3 ABG pH ABG Total CO2 ABG O2 Saturation ABG Base Excess Cesar Test ABG Potassium A-a O2 Difference Sodium Chloride Glucose Lactate FiO2 Blood Gas Comments Potassium Carbon Dioxide Anion Gap BUN Creatinine Est GFR ( Amer) Est GFR (Non-Af Amer) Random Glucose Calcium Total Bilirubin AST ALT Alkaline Phosphatase Ammonia Lactate Dehydrogenase Troponin I Total Protein Albumin Globulin Albumin/Globulin Ratio Arterial Blood Potassium Urine Color Yellow Urine Clarity Clear Urine pH 6.0 Ur Specific [place] 1.017 Urine Protein Negative Urine Glucose (UA) Neg Urine Ketones Negative Urine Blood Negative Urine Nitrate Negative Urine Bilirubin Negative Urine Urobilinogen 2.0 Ur Leukocyte Esterase Neg Urine RBC (Auto) 4 H Urine Microscopic WBC 1 Blood Type Antibody Screen BBK History Checked Assessment & Plan - Assessment and Plan (Free Text) Assessment: Impression; 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 Mild leukopenia also secondary to the aboe. Plan: Plan; He received 2 units of platelets yesterday after which his platelets are 36 today. If this is maintained he can go home. If these start to drop again, will need a bone marrow test - Date & Time Date: 12/09/17 Time: 10:11
--- NOTE | 2017-12-09 10:14 | RAD ---
HISTORY: cough fever COMPARISON: Chest radiographs 12/08/2017. TECHNIQUE: Chest PA and lateral FINDINGS: LUNGS: No acute infiltrate bilaterally. Fibrotic changes in the bilateral inferior lung zones. PLEURA: No significant pleural effusion identified. No pneumothorax apparent. CARDIOVASCULAR: Normal. OSSEOUS STRUCTURES: No significant abnormalities. VISUALIZED UPPER ABDOMEN: Normal. OTHER FINDINGS: None. IMPRESSION: No interval acute cardiopulmonary disease. Fibrotic changes are again mildly seen at the bilateral lung bases.
--- NOTE | 2017-12-09 15:06 | CP.PCM.PN ---
Subjective - Date & Time of Evaluation Date of Evaluation: 12/09/17 Time of Evaluation: 11:30 - Subjective Subjective: Patient seen and examined at bedside during rounds. He is lying in bed and appears comfortable. Patient states he has cough productive of whitish sputum. He also reports aches in chest wall, back and legs. Patient has been receiving IV fluids and was able to tolerate small amount of PO for breakfast. He has no headache, nausea, vomiting or abdominal pain. He received 2 units of platelets overnight for thrombocytopenia. Objective - Vital Signs/Intake and Output Vital Signs (last 24 hours): Temp Pulse Resp BP Pulse Ox 98.8 F 95 H 20 104/66 94 L 12/09/17 08:22 12/09/17 09:17 12/09/17 08:22 12/09/17 09:17 12/09/17 08:22 - Medications Medications: Current Medications Amitriptyline HCl (Elavil) 10 mg PO HS [facility] Last Admin: 12/08/17 22:36 Dose: 10 mg Clonazepam (Klonopin) 1 mg PO [facility] Last Admin: 12/08/17 22:36 Dose: 1 mg Darunavir (Prezista) 800 mg PO DAILY [facility] Last Admin: 12/09/17 09:16 Dose: 800 mg Docusate Sodium (Colace) 100 mg PO BID [facility] Last Admin: 12/09/17 09:16 Dose: 100 mg Duloxetine HCl (Cymbalta) 60 mg PO [facility] Last Admin: 12/08/17 22:35 Dose: 60 mg Emtricitabine/Tenofovir (Truvada 200 Mg-300 Mg) 1 tab PO DAILY [facility] Last Admin: 12/09/17 09:17 Dose: 1 tab Escitalopram Oxalate (Lexapro) 20 mg PO [facility] Last Admin: 12/08/17 22:37 Dose: 20 mg Ferrous Sulfate (Feosol) 325 mg PO Q12 [facility] Last Admin: 12/09/17 09:17 Dose: 325 mg Sodium Chloride (Sodium Chloride 0.9%) 1,000 mls @ 250 mls/hr IV .Q4H [facility] Last Admin: 12/09/17 11:29 Dose: Not Given Azithromycin 500 mg/ Sodium (Chloride) 250 mls @ 250 mls/hr IVPB DAILY [facility] PRN Reason: Protocol Last Admin: 12/09/17 09:19 Dose: Not Given Sodium Chloride (Sodium Chloride 0.9%) 1,000 mls @ 150 mls/hr IV .Q6H40M [facility] Stop: 12/10/17 02:19 Last Admin: 12/09/17 09:18 Dose: Not Given Ceftriaxone Sodium 2 gm/ (Sodium Chloride) 100 mls @ 200 mls/hr IVPB DAILY@ 0400 [facility] PRN Reason: Protocol Mirtazapine (Remeron) 45 mg PO DAILY [facility] Last Admin: 12/09/17 09:16 Dose: 45 mg Nadolol (Corgard) 40 mg PO DAILY [facility] Last Admin: 12/09/17 09:17 Dose: 40 mg Naproxen (Naproxen) 500 mg PO Q12 PRN PRN Reason: Pain, moderate (4-7) Quetiapine Fumarate (Seroquel) 100 mg PO HS [facility] Last Admin: 12/08/17 22:37 Dose: 100 mg Quetiapine Fumarate (Seroquel) 50 mg PO DAILY [facility] Last Admin: 12/09/17 09:18 Dose: 50 mg Ritonavir (Norvir) 100 mg PO DAILY [facility] Last Admin: 12/09/17 09:16 Dose: 100 mg Sennosides (Senokot Tab) 8.6 mg PO HS [facility] Last Admin: 12/08/17 22:37 Dose: Not Given - Labs Labs: 12/08/17 11:20 12/09/17 04:33 PT 17.7 Seconds (9.8-13.1) H 12/08/17 21:25 INR 1.6 (0.9-1.2) H 12/08/17 21:25 APTT 59.1 Seconds (25.6-37.1) H 12/08/17 21:25 - Constitutional Appears: No Acute Distress, Older Than Stated Age, Other - Head Exam Head Exam: ATRAUMATIC, NORMAL INSPECTION - Eye Exam Eye Exam: EOMI, PERRL. absent: Scleral icterus - ENT Exam ENT Exam: Mucous Membranes Moist - Respiratory Exam Respiratory Exam: Clear to Ausculation Bilateral. absent: Rales, Rhonchi, Wheezes, Respiratory Distress - Cardiovascular Exam Cardiovascular Exam: REGULAR RHYTHM, +S1, +S2 - GI/Abdominal Exam GI & Abdominal Exam: Soft, Normal Bowel Sounds. absent: Distended, Tenderness - Extremities Exam Extremities Exam: absent: Calf Tenderness, Pedal Edema Additional comments: No visible ecchymoses. - Neurological Exam Neurological Exam: Alert, Awake, Oriented x3 - Skin Skin Exam: Dry, Warm. absent: Petechiae Assessment and Plan - Assessment and Plan (Free Text) Assessment: 61 y/o M with PMH including HIV, liver cirrhosis and chronic thrombocytopenia presented with chest pain, SOB, cough. Patient subsequently admitted due to severe thrombocytopenia (16,000). Plan: Pancytopenia, with thrombocytopenia -Acute on chronic -Etiology possibly secondary to liver cirrhosis/Hypersplenism -S/P 2 units platelet transfusion with improvement from 16 > 36 -Absolute neutrophil count: 2251 -No signs of active bleeding -Hem/Onc consultation appreciated by Dr Nayak -Will repeat manual platelet count -Patient may require bone marrow biopsy Productive Cough -CXR does not detect a focal pulmonary infiltrate -Due to productive nature of cough and immunosupression, will continue with treatment for possible CAP -Empirical IV antibiotic treatment for CAP -Repeat chest X ray in the AM -Will perform influenza swab due to associated fatigue and myalgias Chest pain, Atypical -Troponins x3 negative -EKG detects no ischemic changes -Pain likely musculoskeletal in etiology -Improved with IVF hydration Liver cirrhosis w/esophageal varices and portal hypertension -Chronic, Cryptogenic -S/P EGD with banding on previous visit -MELD Score: 20, 3 month month mortality is 19.6 -C/W Nadolol 40mg daily as recommended by GI on the last visit AIDS -Last CD4 10/04/17: 143. Viral load: <20. -PCP prophylaxis d/c by Primary care physician. Rheumatoid arthritis -Hold sulfasalazine. Patient states he hasn't been taking it because of abdominal discomfort. -Fall precautions DVT Prophylaxis -SCDs for now for DVT prophylaxis(Patient increased bleeding risk with low plt and elevated INR)
--- NOTE | 2017-12-09 18:40 | CARD ---
APPROVED REPORT EXAM: Two-dimensional and M-mode echocardiogram with Doppler and color Doppler. Other Information Quality : GoodRhythm : Tachycardia INDICATION Dyspnea 2D DIMENSIONS IVSd1.04 (0.7-1.1cm)LVDd4.04 (3.9-5.9cm) LVOT Diameter2.24 (1.8-2.4cm)PWd0.89 (0.7-1.1cm) IVSs1.59 (0.8-1.2cm)LVDs2.55 (2.5-4.0cm) FS (%) 36.9 %PWs1.60 (0.8-1.2cm) LVEF (%)55.0 (>50%) M-Mode DIMENSIONS Left Atrium (MM)2.79 (2.5-4.0cm)IVSd1.24 (0.7-1.1cm) Aortic Root3.35 (2.2-3.7cm)LVDd5.65 (4.0-5.6cm) Aortic Cusp Exc.2.21 (1.5-2.0cm)PWd1.35 (0.7-1.1cm) IVSs1.47 cmFS (%) 32 % LVDs3.85 (2.0-3.8cm)PWs1.97 cm Mitral Valve MV E Ddmcaldo20.5cm/sMV DECEL [id number] A Eiaqpzud13.7cm/s MV ESZ47ncO/A ratio0.8MVA (PHT)4.47cm2 TDI Lateral E' Peak V16.21cm/sMedial E' Peak V5.46cm/sE/Lateral E'3.4 E/Medial E'10.0 Pulmonary Valve PV Peak Mvvfqgit018.6cm/s LEFT VENTRICLE The left ventricle is normal size. There is mild to moderate concentric left ventricular hypertrophy. The left ventricular function is normal. The left ventricular ejection fraction is within the normal range. There is normal LV segmental wall motion. Transmitral Doppler flow pattern is Grade I-abnormal relaxation pattern. RIGHT VENTRICLE The right ventricle is normal size. There is normal right ventricular wall thickness. The right ventricular systolic function is normal. ATRIA The left atrium size is normal. The right atrium size is normal. AORTIC VALVE The aortic valve is mildly thickened. No aortic regurgitation is present. There is no aortic valvular stenosis. MITRAL VALVE The mitral valve is normal in structure. There is no mitral valve stenosis. There is no mitral valve regurgitation noted. TRICUSPID VALVE The tricuspid valve is normal in structure. There is no tricuspid valve regurgitation noted. PULMONIC VALVE The pulmonary valve is normal in structure. There is no pulmonic valvular regurgitation. GREAT VESSELS The aortic root is normal in size. The IVC is normal in size and collapses >50% with inspiration. PERICARDIAL EFFUSION There is a trace loculated anterior pericardial effusion. <Conclusion> The left ventricle is normal size. There is mild to moderate concentric left ventricular hypertrophy. The left ventricular function is normal. The left ventricular ejection fraction is within the normal range. There is normal LV segmental wall motion. Transmitral Doppler flow pattern is Grade I-abnormal relaxation pattern.
[2017-12-10] MEDS: Sodium Chloride 0.9% 1,000 ML IV SCH ×4 (03:15→21:40)
[2017-12-10] MEDS: cefTRIAXone 2 GM in Sodium Chloride 0.9% 100 ML IVPB SCH (03:45)
[2017-12-10] MEDS: Azithromycin 500 MG in Sodium Chloride 0.9% 250 ML IVPB SCH (04:45)
[2017-12-10 07:49] LABS: MEAN CELL VOLUME 74.6 fl (80.0-94.0); MEAN CORPUSCULAR HEMOGLOBIN 24.9 pg (27.0-31.0); MEAN CORPUSCULAR HGB CONC 33.4 g/dL (33.0-37.0); RBC 3.61 Mil/uL (4.40-5.90); WHITE BLOOD COUNT 2.6 K/uL (4.8-10.8)
[2017-12-10 07:50] LABS: BASO % 0.3 % (0.0-2.0); EOS # 0.1 K/uL (0.0-0.7); EOS % 3.2 % (0.0-4.0); LYMPH # 0.7 K/uL (1.0-4.3); LYMPH % 28.3 % (20.0-40.0); MEAN PLATELET VOLUME 11.8 fl (7.2-11.7); MONO # 0.3 K/uL (0.0-0.8); MONO % 11.1 % (0.0-10.0); NEUT # 1.5 K/uL (1.8-7.0); NEUT % 57.1 % (50.0-75.0); NRBC % 0.4 % (0.0-0.0)
[2017-12-10] MEDS: Emtricitabine-Tenofovir 200 mg-300 mg Tab PO SCH (09:07)
--- NOTE | 2017-12-10 13:27 | CP.PCM.PN ---
Subjective - Date & Time of Evaluation Date of Evaluation: 12/10/17 Time of Evaluation: 10:30 - Subjective Subjective: Patient seen and examined at bedside during rounds. Patient sitting upright in chair enjoying breakfast. He reports resolution of myalgia of chest, back and legs however states he has not been able to ambulate due to persistent lower extremity weakness. He denies associated paresthesias, numbness or tingling of the extremities. He further denies any fevers, cough, sputum production or SOB. Platelets have remained stable at 34,000 with no signs of bleeding. Objective - Vital Signs/Intake and Output Vital Signs (last 24 hours): Temp Pulse Resp BP Pulse Ox 97.1 F L 77 20 100/62 95 12/10/17 08:21 12/10/17 08:21 12/10/17 08:21 12/10/17 09:08 12/10/17 08:21 - Medications Medications: Current Medications Amitriptyline HCl (Elavil) 10 mg PO [facility] Last Admin: 12/09/17 21:26 Dose: 10 mg Clonazepam (Klonopin) 1 mg PO [facility] Last Admin: 12/09/17 21:27 Dose: 1 mg Darunavir (Prezista) 800 mg PO DAILY [facility] Last Admin: 12/10/17 09:05 Dose: 800 mg Docusate Sodium (Colace) 100 mg PO BID [facility] Last Admin: 12/10/17 09:06 Dose: 100 mg Duloxetine HCl (Cymbalta) 60 mg PO [facility] Last Admin: 12/09/17 21:26 Dose: 60 mg Emtricitabine/Tenofovir (Truvada 200 Mg-300 Mg) 1 tab PO DAILY [facility] Last Admin: 12/10/17 09:07 Dose: 1 tab Escitalopram Oxalate (Lexapro) 20 mg PO [facility] Last Admin: 12/09/17 21:25 Dose: 20 mg Ferrous Sulfate (Feosol) 325 mg PO Q12 [facility] Last Admin: 12/10/17 09:00 Dose: 325 mg Sodium Chloride (Sodium Chloride 0.9%) 1,000 mls @ 250 mls/hr IV .Q4H [facility] Last Admin: 12/10/17 09:14 Dose: 250 mls/hr Ceftriaxone Sodium 2 gm/ (Sodium Chloride) 100 mls @ 200 mls/hr IVPB DAILY@ 0400 [facility] PRN Reason: Protocol Last Admin: 12/10/17 03:45 Dose: 200 mls/hr Azithromycin 500 mg/ Sodium (Chloride) 250 mls @ 250 mls/hr IVPB DAILY@0400 [facility] PRN Reason: Protocol Last Admin: 12/10/17 04:45 Dose: 250 mls/hr Mirtazapine (Remeron) 45 mg PO DAILY [facility] Last Admin: 12/10/17 09:07 Dose: 45 mg Nadolol (Corgard) 40 mg PO DAILY [facility] Last Admin: 12/10/17 09:08 Dose: 40 mg Naproxen (Naproxen) 500 mg PO Q12 PRN PRN Reason: Pain, moderate (4-7) Quetiapine Fumarate (Seroquel) 100 mg PO HS [facility] Last Admin: 12/09/17 21:25 Dose: 100 mg Quetiapine Fumarate (Seroquel) 50 mg PO DAILY [facility] Last Admin: 12/10/17 09:07 Dose: 50 mg Ritonavir (Norvir) 100 mg PO DAILY [facility] Last Admin: 12/10/17 09:06 Dose: 100 mg Sennosides (Senokot Tab) 8.6 mg PO HS [facility] Last Admin: 12/09/17 21:25 Dose: 8.6 mg - Labs Labs: 12/10/17 05:20 12/09/17 04:33 PT 17.7 Seconds (9.8-13.1) H 12/08/17 21:25 INR 1.6 (0.9-1.2) H 12/08/17 21:25 APTT 59.1 Seconds (25.6-37.1) H 12/08/17 21:25 - Constitutional Appears: Non-toxic, No Acute Distress - Head Exam Head Exam: ATRAUMATIC, NORMAL INSPECTION, NORMOCEPHALIC - Eye Exam Eye Exam: EOMI, PERRL, Scleral icterus - Respiratory Exam Respiratory Exam: Clear to Ausculation Bilateral. absent: Rales, Rhonchi, Wheezes, Respiratory Distress - Cardiovascular Exam Cardiovascular Exam: REGULAR RHYTHM, +S1 - GI/Abdominal Exam GI & Abdominal Exam: Soft, Normal Bowel Sounds. absent: Distended, Tenderness, Rebound - Extremities Exam Extremities Exam: absent: Calf Tenderness, Pedal Edema Additional comments: Decreased muscle mass in extremities - Back Exam Back Exam: absent: vertebral tenderness - Neurological Exam Neurological Exam: Alert, Awake, Oriented x3 Neuro motor strength exam: Left Lower Extremity: 4, Right Lower Extremity: 4 - Psychiatric Exam Psychiatric exam: Flat Affect - Skin Skin Exam: Dry, Warm Assessment and Plan - Assessment and Plan (Free Text) Assessment: 61 y/o M with PMH including HIV, liver cirrhosis and chronic thrombocytopenia presented with chest pain, SOB, cough. Patient subsequently admitted due to severe thrombocytopenia (16,000) and received platelet transfusion. He has been experiencing lower extremity weakness and inability to ambulate so PT was consulted. Plan: Pancytopenia, with thrombocytopenia -Acute on chronic -Etiology possibly secondary to liver cirrhosis/Hypersplenism -S/P 2 units platelet transfusion on 12/09 with improvement from 16 > 36 -Platelets stable today at 34 -Absolute neutrophil count: 1485 -No signs of active bleeding -Hem/Onc consultation appreciated by Dr Nayak -Will repeat manual platelet count -Patient may require bone marrow biopsy Lower extremity weakness -Etiology undetermined possibly secondary to deconditioning vs other metabolic process -Will perform B12, folate, tsh, cpk testing -PT evaluation requested Productive Cough, improving -CXR does not detect a focal pulmonary infiltrate -Due to productive nature of cough and immunosupression, will continue with treatment for possible CAP -Empirical IV antibiotic treatment for CAP -Influenza swab pending due to associated fatigue and myalgias Liver cirrhosis w/esophageal varices and portal hypertension -Chronic, Cryptogenic -S/P EGD with banding on previous visit -MELD Score: 20, 3 month month mortality is 19.6 -C/W Nadolol 40mg daily as recommended by GI on the last visit AIDS -Last CD4 10/04/17: 143. Viral load: <20. -PCP prophylaxis d/c by Primary care physician. Rheumatoid arthritis -Hold sulfasalazine. Patient states he hasn't been taking it because of abdominal discomfort. -Fall precautions Chest pain, Atypical, resolved -Troponins x3 negative -EKG detects no ischemic changes -Pain likely musculoskeletal in etiology DVT Prophylaxis -SCDs for now for DVT prophylaxis (Patient increased bleeding risk with low plt)
[2017-12-11] MEDS: Sodium Chloride 0.9% 1,000 ML IV SCH ×4 (00:48→21:24)
[2017-12-11] MEDS: cefTRIAXone 2 GM in Sodium Chloride 0.9% 100 ML IVPB SCH (03:13)
[2017-12-11] MEDS: Azithromycin 500 MG in Sodium Chloride 0.9% 250 ML IVPB SCH (04:12)
[2017-12-11 06:57] LABS: BASO % 0.3 % (0.0-2.0); EOS # 0.1 K/uL (0.0-0.7); EOS % 4.2 % (0.0-4.0); HEMOGLOBIN 8.4 g/dL (12.0-18.0); LYMPH # 0.5 K/uL (1.0-4.3); LYMPH % 29.4 % (20.0-40.0); MEAN CORPUSCULAR HEMOGLOBIN 24.1 pg (27.0-31.0); MEAN CORPUSCULAR HGB CONC 32.1 g/dL (33.0-37.0); MEAN PLATELET VOLUME 11.6 fl (7.2-11.7); MONO # 0.1 K/uL (0.0-0.8); MONO % 8.3 % (0.0-10.0); NEUT # 0.9 K/uL (1.8-7.0); NEUT % 57.8 % (50.0-75.0); NRBC % 0.5 % (0.0-0.0); RBC 3.48 Mil/uL (4.40-5.90); RED CELL DISTRIBUTION WIDTH 17.2 % (11.5-14.5)
[2017-12-11 07:06] LABS: WHITE BLOOD COUNT 1.6 K/uL (4.8-10.8)
[2017-12-11] MEDS: Emtricitabine-Tenofovir 200 mg-300 mg Tab PO SCH (09:43)
--- NOTE | 2017-12-11 10:34 | CP.PCM.PN ---
Subjective - Date & Time of Evaluation Date of Evaluation: 12/11/17 Time of Evaluation: 07:40 - Subjective Subjective: Patient seen and examined at bedside, sleeping comfortably. NAD, patient denies any cough, SOB, chest pain, dizziness, f/v/d or any urinary symptoms. Patient still admits some b/l lower extremities weakness but denies any associated parasthesia, numbness and tingling. Objective - Vital Signs/Intake and Output Vital Signs (last 24 hours): Temp Pulse Resp BP Pulse Ox 97.6 F 87 20 101/65 95 12/11/17 07:55 12/11/17 08:29 12/11/17 07:55 12/11/17 08:29 12/11/17 07:55 - Medications Medications: Current Medications Amitriptyline HCl (Elavil) 10 mg PO [facility] Last Admin: 12/10/17 21:37 Dose: 10 mg Clonazepam (Klonopin) 1 mg PO [facility] Last Admin: 12/10/17 21:36 Dose: 1 mg Darunavir (Prezista) 800 mg PO DAILY [facility] Last Admin: 12/11/17 08:29 Dose: 800 mg Docusate Sodium (Colace) 100 mg PO BID [facility] Last Admin: 12/11/17 08:29 Dose: 100 mg Duloxetine HCl (Cymbalta) 60 mg PO [facility] Last Admin: 12/10/17 21:37 Dose: 60 mg Emtricitabine/Tenofovir (Truvada 200 Mg-300 Mg) 1 tab PO DAILY [facility] Last Admin: 12/11/17 09:43 Dose: 1 tab Escitalopram Oxalate (Lexapro) 20 mg PO [facility] Last Admin: 12/10/17 21:37 Dose: 20 mg Ferrous Sulfate (Feosol) 325 mg PO Q12 [facility] Last Admin: 12/11/17 08:30 Dose: 325 mg Sodium Chloride (Sodium Chloride 0.9%) 1,000 mls @ 150 mls/hr IV .Q6H40M [facility] Last Admin: 12/11/17 08:27 Dose: 150 mls/hr Mirtazapine (Remeron) 45 mg PO DAILY [facility] Last Admin: 12/11/17 08:30 Dose: 45 mg Nadolol (Corgard) 40 mg PO DAILY [facility] Last Admin: 12/11/17 08:29 Dose: 40 mg Naproxen (Naproxen) 500 mg PO Q12 PRN PRN Reason: Pain, moderate (4-7) Quetiapine Fumarate (Seroquel) 100 mg PO HS [facility] Last Admin: 12/10/17 21:37 Dose: 100 mg Quetiapine Fumarate (Seroquel) 50 mg PO DAILY [facility] Last Admin: 12/11/17 08:30 Dose: 50 mg Ritonavir (Norvir) 100 mg PO DAILY [facility] Last Admin: 12/11/17 08:30 Dose: 100 mg Sennosides (Senokot Tab) 8.6 mg PO HS [facility] Last Admin: 12/10/17 21:37 Dose: 8.6 mg - Labs Labs: 12/11/17 06:10 12/09/17 04:33 PT 17.7 Seconds (9.8-13.1) H 12/08/17 21:25 INR 1.6 (0.9-1.2) H 12/08/17 21:25 APTT 59.1 Seconds (25.6-37.1) H 12/08/17 21:25 - Constitutional Appears: No Acute Distress - Head Exam Head Exam: ATRAUMATIC, NORMAL INSPECTION, NORMOCEPHALIC - Eye Exam Eye Exam: Normal appearance Pupil Exam: NORMAL ACCOMODATION - ENT Exam ENT Exam: Normal Exam - Neck Exam Neck Exam: Normal Inspection - Respiratory Exam Respiratory Exam: Clear to Ausculation Bilateral - Cardiovascular Exam Cardiovascular Exam: REGULAR RHYTHM - GI/Abdominal Exam GI & Abdominal Exam: Soft, Normal Bowel Sounds - Extremities Exam Extremities Exam: Normal Capillary Refill Additional comments: sensory and motor b/l intact - Back Exam Back Exam: NORMAL INSPECTION - Neurological Exam Neurological Exam: Alert, Awake, Oriented x3 - Psychiatric Exam Psychiatric exam: Normal Affect - Skin Skin Exam: Dry, Intact, Normal Color, Warm Assessment and Plan - Assessment and Plan (Free Text) Assessment: A/P: 61 y/o M with PMH including HIV, liver cirrhosis and chronic thrombocytopenia presented with chest pain, SOB, cough. Patient subsequently admitted due to severe thrombocytopenia (16,000) and received platelet transfusion. He has been experiencing lower extremity weakness and inability to ambulate so PT was consulted. Plan: Pancytopenia, with thrombocytopenia -Acute on chronic -Etiology possibly secondary to liver cirrhosis/Hypersplenism -S/P 2 units platelet transfusion on 12/09 with improvement from 16 > 34 -Platelets stable today at 34 -Absolute neutrophil count: 925 -Patient for Isolation due to ANC -WBC 1.6 today -No signs of active bleeding -Hem/Onc consultation appreciated by Dr Nayak -Patient may require bone marrow biopsy, will follow up -Consider Vitamin K (Low plt, abnormal coag) -Granix 480 mcq SC daily Lower extremity weakness -Etiology undetermined possibly secondary to deconditioning vs other metabolic process -Will perform B12, folate, tsh, cpk testing -Vitamin B12: 291, B12 INJ today -Folate 2.5, 1mg PO folic acid daily from today -CPK <20, TSH 2.6 -PT evaluation appreciated: rec' TCU Productive Cough, improving -CXR does not detect a focal pulmonary infiltrate -Due to productive nature of cough and immunosupression, will continue with treatment for possible CAP -Empirical IV antibiotic treatment for CAP -Influenza swab pending due to associated fatigue and myalgias, follow up Liver cirrhosis w/esophageal varices and portal hypertension -Chronic, Cryptogenic -S/P EGD with banding on previous visit -MELD Score: 20, 3 month month mortality is 19.6 -C/W Nadolol 40mg daily as recommended by GI on the last visit AIDS -Last CD4 10/04/17: 143. Viral load: <20. -PCP prophylaxis d/c by Primary care physician -Continue Darunavir, Truvada, Norvir Rheumatoid arthritis -Hold sulfasalazine. Patient states he hasn't been taking it because of abdominal discomfort. -Fall precautions Chest pain, Atypical, resolved -Troponins x3 negative -EKG detects no ischemic changes -Pain likely musculoskeletal in etiology DVT Prophylaxis -SCDs for now for DVT prophylaxis (Patient increased bleeding risk with low plt)
[2017-12-11 13:20] LABS: FOLATE 2.5 ng/mL
[2017-12-12] MEDS: Sodium Chloride 0.9% 1,000 ML IV SCH (04:59)
[2017-12-12 06:59] LABS: BASO % 0.2 % (0.0-2.0); EOS # 0.1 K/uL (0.0-0.7); EOS % 1.9 % (0.0-4.0); HEMOGLOBIN 8.7 g/dL (12.0-18.0); LYMPH # 0.6 K/uL (1.0-4.3); LYMPH % 16.4 % (20.0-40.0); MEAN CELL VOLUME 75.7 fl (80.0-94.0); MEAN CORPUSCULAR HEMOGLOBIN 24.6 pg (27.0-31.0); MEAN CORPUSCULAR HGB CONC 32.6 g/dL (33.0-37.0); MEAN PLATELET VOLUME 10.2 fl (7.2-11.7); MONO # 0.2 K/uL (0.0-0.8); MONO % 6.3 % (0.0-10.0); NEUT # 2.9 K/uL (1.8-7.0); NEUT % 75.2 % (50.0-75.0); NRBC % 0.1 % (0.0-0.0); RBC 3.54 Mil/uL (4.40-5.90); RED CELL DISTRIBUTION WIDTH 17.7 % (11.5-14.5); WHITE BLOOD COUNT 3.9 K/uL (4.8-10.8)
[2017-12-12] MEDS ORDERED: Lidocaine 2% Inj (20ml) SC ONE (08:23)
[2017-12-12] MEDS ORDERED: Lidocaine 2% Inj (20ml) ONE (08:31)
--- NOTE | 2017-12-12 09:30 | CP.PCM.PN ---
Subjective - Date & Time of Evaluation Date of Evaluation: 12/12/17 Time of Evaluation: 07:45 - Subjective Subjective: Patient seen and examined this morning, NAD, sleeping comfortably in bed. Patient denies any dizziness, SOB, chest pain, cough, abdominal pain or urinary symptoms. patient admits his weakness got better. Patient is ambulating and tolerating PO diet. Possible BM biopsy today. Objective - Vital Signs/Intake and Output Vital Signs (last 24 hours): Temp Pulse Resp BP Pulse Ox 98.1 F 79 19 100/62 96 12/12/17 08:00 12/12/17 08:00 12/12/17 08:00 12/12/17 08:00 12/12/17 08:00 - Medications Medications: Current Medications Amitriptyline HCl (Elavil) 10 mg PO HS [facility] Last Admin: 12/11/17 21:21 Dose: 10 mg Clonazepam (Klonopin) 1 mg PO HS [facility] Last Admin: 12/11/17 21:22 Dose: 1 mg Darunavir (Prezista) 800 mg PO DAILY [facility] Last Admin: 12/11/17 08:29 Dose: 800 mg Docusate Sodium (Colace) 100 mg PO BID [facility] Last Admin: 12/11/17 17:12 Dose: 100 mg Duloxetine HCl (Cymbalta) 60 mg PO HS [facility] Last Admin: 12/11/17 21:21 Dose: 60 mg Emtricitabine/Tenofovir (Truvada 200 Mg-300 Mg) 1 tab PO DAILY [facility] Last Admin: 12/11/17 09:43 Dose: 1 tab Escitalopram Oxalate (Lexapro) 20 mg PO HS [facility] Last Admin: 12/11/17 21:21 Dose: 20 mg Ferrous Sulfate (Feosol) 325 mg PO Q12 [facility] Last Admin: 12/11/17 21:21 Dose: 325 mg Folic Acid (Folic Acid) 1 mg PO DAILY [facility] Last Admin: 12/11/17 15:27 Dose: 1 mg Sodium Chloride (Sodium Chloride 0.9%) 1,000 mls @ 150 mls/hr IV .Q6H40M [facility] Last Admin: 12/12/17 04:59 Dose: 150 mls/hr Mirtazapine (Remeron) 45 mg PO DAILY [facility] Last Admin: 12/11/17 08:30 Dose: 45 mg Nadolol (Corgard) 40 mg PO DAILY [facility] Last Admin: 12/11/17 08:29 Dose: 40 mg Naproxen (Naproxen) 500 mg PO Q12 PRN PRN Reason: Pain, moderate (4-7) Phytonadione (Vitamin K Tab) 5 mg PO ONCE ONE Stop: 12/12/17 09:31 Quetiapine Fumarate (Seroquel) 100 mg PO HS [facility] Last Admin: 12/11/17 21:21 Dose: 100 mg Quetiapine Fumarate (Seroquel) 50 mg PO DAILY [facility] Last Admin: 12/11/17 08:30 Dose: 50 mg Ritonavir (Norvir) 100 mg PO DAILY [facility] Last Admin: 12/11/17 08:30 Dose: 100 mg Sennosides (Senokot Tab) 8.6 mg PO [facility] Last Admin: 12/11/17 21:21 Dose: 8.6 mg - Labs Labs: 12/12/17 06:10 12/09/17 04:33 PT 17.7 Seconds (9.8-13.1) H 12/08/17 21:25 INR 1.6 (0.9-1.2) H 12/08/17 21:25 APTT 59.1 Seconds (25.6-37.1) H 12/08/17 21:25 - Constitutional Appears: No Acute Distress - Head Exam Head Exam: NORMAL INSPECTION - Eye Exam Eye Exam: Normal appearance - ENT Exam ENT Exam: Mucous Membranes Moist - Neck Exam Neck Exam: Normal Inspection - Respiratory Exam Respiratory Exam: Clear to Ausculation Bilateral, NORMAL BREATHING PATTERN - Cardiovascular Exam Cardiovascular Exam: REGULAR RHYTHM - GI/Abdominal Exam GI & Abdominal Exam: Soft, Normal Bowel Sounds - Extremities Exam Extremities Exam: Normal Capillary Refill, Normal Inspection - Back Exam Back Exam: NORMAL INSPECTION - Neurological Exam Neurological Exam: Alert, Awake, Oriented x3 - Psychiatric Exam Psychiatric exam: Normal Affect - Skin Skin Exam: Normal Color Assessment and Plan - Assessment and Plan (Free Text) Assessment: A/P: 61 y/o M with PMH including HIV, liver cirrhosis and chronic thrombocytopenia presented with chest pain, SOB, cough. Patient subsequently admitted due to severe thrombocytopenia (16,000) and received platelet transfusion. He has been experiencing lower extremity weakness and inability to ambulate so PT was consulted. Pancytopenia, with thrombocytopenia -Acute on chronic -Etiology possibly secondary to liver cirrhosis/Hypersplenism -S/P 2 units platelet transfusion on 12/09 with improvement from 16 > 34 -Platelets today at 29 -Patient for Isolation due to ANC but improved today -WBC 3.9 today -S/p Vitamin K 5mg dose -S/p Granix 480 mcq SC -No signs of active bleeding -Hem/Onc consultation appreciated by Dr Nayak -Possible bone marrow biopsy today Lower extremity weakness -Etiology undetermined possibly secondary to deconditioning vs other metabolic process -Vitamin B12: 291, s/p B12 INJ -Folate 2.5, 1mg PO folic acid daily from today -CPK <20, TSH 2.6 -PT evaluation appreciated: rec' TCU Productive Cough, improving -CXR does not detect a focal pulmonary infiltrate -Due to productive nature of cough and immunosupression, will continue with treatment for possible CAP -S/p Empirical IV antibiotic treatment for CAP -Influenza swab negative Liver cirrhosis w/esophageal varices and portal hypertension -Chronic, Cryptogenic -S/P EGD with banding on previous visit -MELD Score: 20, 3 month month mortality is 19.6 -C/W Nadolol 40mg daily as recommended by GI on the last visit AIDS -Last CD4 10/04/17: 143. Viral load: <20. -PCP prophylaxis d/c by Primary care physician -Continue Darunavir, Truvada, Norvir Rheumatoid arthritis -Hold sulfasalazine. Patient states he hasn't been taking it because of abdominal discomfort. -Fall precautions Chest pain, Atypical, resolved -Troponins x3 negative -EKG detects no ischemic changes -Pain likely musculoskeletal in etiology DVT Prophylaxis -SCDs for now for DVT prophylaxis (Patient increased bleeding risk with low plt)
[2017-12-12] MEDS: Emtricitabine-Tenofovir 200 mg-300 mg Tab PO SCH (11:03)
--- NOTE | 2017-12-12 11:42 | CP.PCM.PN ---
Subjective - Date & Time of Evaluation Date of Evaluation: 12/12/17 Time of Evaluation: 11:38 - Subjective Subjective: Pt's platelet He needed 2 doses of granix to get his count to 3.9.Will d/c granix. Count again dropped to 29K. I will do a bone marrow to see if the marrow is depressed. Bone marrow aspiration done from left iliac crest., using local anesthesia. Procedure tolerated well, result to follow. Objective - Vital Signs/Intake and Output Vital Signs (last 24 hours): Temp Pulse Resp BP Pulse Ox 98.1 F 79 19 100/62 96 12/12/17 08:00 12/12/17 10:59 12/12/17 08:00 12/12/17 10:59 12/12/17 08:00 - Medications Medications: Current Medications Amitriptyline HCl (Elavil) 10 mg PO HS [facility] Last Admin: 12/11/17 21:21 Dose: 10 mg Clonazepam (Klonopin) 1 mg PO HS [facility] Last Admin: 12/11/17 21:22 Dose: 1 mg Darunavir (Prezista) 800 mg PO DAILY [facility] Last Admin: 12/12/17 11:01 Dose: 800 mg Docusate Sodium (Colace) 100 mg PO BID [facility] Last Admin: 12/12/17 10:57 Dose: 100 mg Duloxetine HCl (Cymbalta) 60 mg PO HS [facility] Last Admin: 12/11/17 21:21 Dose: 60 mg Emtricitabine/Tenofovir (Truvada 200 Mg-300 Mg) 1 tab PO DAILY [facility] Last Admin: 12/12/17 11:03 Dose: 1 tab Escitalopram Oxalate (Lexapro) 20 mg PO HS [facility] Last Admin: 12/11/17 21:21 Dose: 20 mg Ferrous Sulfate (Feosol) 325 mg PO Q12 [facility] Last Admin: 12/12/17 11:00 Dose: 325 mg Folic Acid (Folic Acid) 1 mg PO DAILY [facility] Last Admin: 12/12/17 11:00 Dose: 1 mg Sodium Chloride (Sodium Chloride 0.9%) 1,000 mls @ 150 mls/hr IV .Q6H40M [facility] Last Admin: 12/12/17 04:59 Dose: 150 mls/hr Mirtazapine (Remeron) 45 mg PO DAILY [facility] Last Admin: 12/12/17 11:02 Dose: 45 mg Nadolol (Corgard) 40 mg PO DAILY [facility] Last Admin: 12/12/17 10:59 Dose: 40 mg Naproxen (Naproxen) 500 mg PO Q12 PRN PRN Reason: Pain, moderate (4-7) Quetiapine Fumarate (Seroquel) 100 mg PO HS [facility] Last Admin: 12/11/17 21:21 Dose: 100 mg Quetiapine Fumarate (Seroquel) 50 mg PO DAILY [facility] Last Admin: 12/12/17 11:02 Dose: 50 mg Ritonavir (Norvir) 100 mg PO DAILY [facility] Last Admin: 12/12/17 11:01 Dose: 100 mg Sennosides (Senokot Tab) 8.6 mg PO HS [facility] Last Admin: 12/11/17 21:21 Dose: 8.6 mg - Labs Labs: 12/12/17 06:10 12/09/17 04:33 PT 17.7 Seconds (9.8-13.1) H 12/08/17 21:25 INR 1.6 (0.9-1.2) H 12/08/17 21:25 APTT 59.1 Seconds (25.6-37.1) H 12/08/17 21:25
[2017-12-12 15:51] VITALS: BP 109/69; PULSE 76; RESP 20; TEMP 97.9; O2SAT 95
--- NOTE | 2017-12-13 11:56 | CP.PCM.DIS ---
Provider - Provider Date of Admission: 12/09/17 16:09 Attending physician: Augusto Peng MD Consults: Dr Wells Damle Time Spent in preparation of Discharge (in minutes): 40 Diagnosis - Discharge Diagnosis (1) Thrombocytopenia Status: Chronic (2) Pancytopenia Status: Chronic (3) AIDS Status: Chronic (4) Weakness Status: Acute (5) Vitamin B12 deficiency Status: Acute (6) Folate deficiency Status: Acute (7) Abnormal coagulation profile Status: Chronic (8) Esophageal varices Status: Chronic (9) Rheumatoid arteritis Status: Chronic (10) Liver cirrhosis Status: Chronic Hospital Course - Lab Results Lab Results: Micro Results 12/09/17 00:24 Blood Blood Culture - Preliminary NO GROWTH AFTER 4 DAYS 12/09/17 04:46 Urine Urine Culture - Final No Growth (<1,000 CFU/ML) Most Recent Lab Values WBC 3.9 K/uL (4.8-10.8) L D 12/12/17 06:10 RBC 3.54 Mil/uL (4.40-5.90) L 12/12/17 06:10 Hgb 8.7 g/dL (12.0-18.0) L 12/12/17 06:10 Hct 26.8 % (35.0-51.0) L 12/12/17 06:10 MCV 75.7 fl (80.0-94.0) L 12/12/17 06:10 MCH 24.6 pg (27.0-31.0) L 12/12/17 06:10 MCHC 32.6 g/dL (33.0-37.0) L 12/12/17 06:10 RDW 17.7 % (11.5-14.5) H 12/12/17 06:10 Plt Count 29 K/uL (130-400) L* 12/12/17 06:10 Manual Plt Count 36 K/uL (130-400) L* 12/09/17 04:43 MPV 10.2 fl (7.2-11.7) 12/12/17 06:10 Neut % (Auto) 75.2 % (50.0-75.0) H 12/12/17 06:10 Lymph % (Auto) 16.4 % (20.0-40.0) L 12/12/17 06:10 [place] % (Auto) 6.3 % (0.0-10.0) 12/12/17 06:10 Eos % (Auto) 1.9 % (0.0-4.0) 12/12/17 06:10 Baso % (Auto) 0.2 % (0.0-2.0) 12/12/17 06:10 Neut # (Auto) 2.9 K/uL (1.8-7.0) 12/12/17 06:10 Lymph # (Auto) 0.6 K/uL (1.0-4.3) L 12/12/17 06:10 [place] # (Auto) 0.2 K/uL (0.0-0.8) 12/12/17 06:10 Eos # (Auto) 0.1 K/uL (0.0-0.7) 12/12/17 06:10 Baso # (Auto) 0.0 K/uL (0.0-0.2) 12/12/17 06:10 PT 17.7 Seconds (9.8-13.1) H 12/08/17 21:25 INR 1.6 (0.9-1.2) H 12/08/17 21:25 APTT 59.1 Seconds (25.6-37.1) H 12/08/17 21:25 pCO2 31 mm/Hg (35-45) L 12/08/17 11:05 pO2 86 mm/Hg (80-100) 12/08/17 11:05 HCO3 25.5 mmol/L (21-28) 12/08/17 11:05 ABG pH 7.49 (7.35-7.45) H 12/08/17 11:05 ABG Total CO2 24.6 mmol/L (22-28) 12/08/17 11:05 ABG O2 Saturation 100.4 % (95-98) H 12/08/17 11:05 ABG Base Excess 0.8 mmol/L (-2.0-3.0) 12/08/17 11:05 Cesar Test Yes 12/08/17 11:05 ABG Potassium 4.4 mmol/L (3.6-5.2) 12/08/17 11:05 A-a O2 Difference 25.0 mm/Hg 12/08/17 11:05 Sodium 129.0 mmol/L (132-148) L 12/08/17 11:05 Chloride 102.0 mmol/L (98-107) 12/08/17 11:05 Glucose 116 mg/dL (75-110) H 12/08/17 11:05 Lactate 1.6 mmol/L (0.7-2.1) 12/08/17 11:05 FiO2 21.0 % 12/08/17 11:05 Blood Gas Comments room air 12/08/17 11:05 Sodium 134 mmol/l (132-148) 12/09/17 04:33 Potassium 4.4 MMOL/L (3.6-5.0) 12/09/17 04:33 Chloride 101 mmol/L (98-107) 12/09/17 04:33 Carbon Dioxide 22 mmol/L (22-30) 12/09/17 04:33 Anion Gap 15 (10-20) 12/09/17 04:33 BUN 18 mg/dl (9-20) 12/09/17 04:33 Creatinine 0.9 mg/dl (0.8-1.5) 12/09/17 04:33 Est GFR ( Amer) > 60 12/09/17 04:33 Est GFR (Non-Af Amer) > 60 12/09/17 04:33 Random Glucose 115 mg/dL (75-110) H 12/09/17 04:33 Calcium 8.2 mg/dL (8.4-10.2) L 12/09/17 04:33 Iron 29 ug/dL (49-181) L 12/11/17 06:10 TIBC 250 ug/dL (250-450) 12/11/17 06:10 % Saturation 11 % (20-55) L 12/11/17 06:10 Total Bilirubin 1.3 mg/dl (0.2-1.3) 12/09/17 04:33 AST 23 U/L (17-59) 12/09/17 04:33 ALT 37 U/L (21-72) 12/09/17 04:33 Alkaline Phosphatase 89 U/L (38-126) 12/09/17 04:33 Ammonia 25 umo/L (16-60) 12/08/17 21:25 Lactate Dehydrogenase 337 U/L (313-618) 12/08/17 11:20 Total Creatine Kinase < 20 U/L (55-170) L 12/11/17 06:10 Troponin I < 0.0120 ng/mL (0.00-0.120) 12/09/17 04:33 Total Protein 7.9 G/DL (6.3-8.2) 12/09/17 04:33 Albumin 2.9 g/dL (3.5-5.0) L 12/09/17 04:33 Globulin 4.9 gm/dL (2.2-3.9) H 12/09/17 04:33 Albumin/Globulin Ratio 0.6 (1.0-2.1) L 12/09/17 04:33 Alpha Fetoprotein 0.8 IU/mL (0.0-7.22) 12/12/17 06:10 Vitamin B12 291 pg/mL (239-931) 12/11/17 06:10 25-OH Vitamin D Total 19.8 NG/ML (30.0-100.0) L 12/11/17 06:10 Folate 2.5 ng/mL 12/11/17 06:10 TSH 3rd Generation 2.62 mIU/ML (0.46-4.68) 12/11/17 06:10 Arterial Blood Potassium 4.4 mmol/L (3.6-5.2) 12/08/17 11:05 Urine Color Yellow (YELLOW) 12/09/17 04:46 Urine Clarity Clear (Clear) 12/09/17 04:46 Urine pH 6.0 (5.0-8.0) 12/09/17 04:46 Ur Specific [place] 1.017 (1.003-1.030) 12/09/17 04:46 Urine Protein Negative mg/dL (NEGATIVE) 12/09/17 04:46 Urine Glucose (UA) Neg mg/dL (Normal) 12/09/17 04:46 Urine Ketones Negative mg/dL (NEGATIVE) 12/09/17 04:46 Urine Blood Negative (NEGATIVE) 12/09/17 04:46 Urine Nitrate Negative (NEGATIVE) 12/09/17 04:46 Urine Bilirubin Negative (NEGATIVE) 12/09/17 04:46 Urine Urobilinogen 2.0 mg/dL (0.2-1.0) 12/09/17 04:46 Ur Leukocyte Esterase Neg [place]/uL (Negative) 12/09/17 04:46 Urine RBC (Auto) 4 /hpf (0-3) H 12/09/17 04:46 Urine Microscopic WBC 1 /hpf (0-5) 12/09/17 04:46 Stool Occult Blood Negative (NEGATIVE) 12/11/17 16:35 Platelet IgG Antibody Negative (NEGATIVE) 12/09/17 04:33 Influenza Typ A,B (EIA) Negative for flu a/b (NEGATIVE) 12/11/17 13:39 Blood Type O POSITIVE 12/08/17 20:04 Antibody Screen Negative 12/08/17 20:04 BBK History Checked Patient has bt 12/08/17 20:04 - Hospital Course Hospital Course: 61 y/o M with PMH including HIV, liver cirrhosis and chronic thrombocytopenia presented with chest pain, SOB, and cough. Patient subsequently admitted due to severe thrombocytopenia (16,000) and received platelet transfusion, patient was found to be Pancytopenic and placed on isolation due to low ANC. HemOnc, Dr. Dulce Maria Nayak consulted who kalyn' 2 doses of granix and performed bone marrow biopsy on 12/12/17 (Pending). Patient was given vitamin K for abnormal coag, Vitamin B12 and Folic acid due to low level found on labs, normal TSH. Work up for chest pain and SOB, CXR, EKG, Troponins unremarkable and patient is s/p empirical IV abx for CAP. Echo on 12/08: normal EF with normal LV function. He has been experiencing lower extremity weakness and inability to ambulate so PT was consulted who recom' TCU and patient was transferred to TCU for further evaluation and treatment. Discharge Exam - Head Exam Head Exam: NORMAL INSPECTION - Eye Exam Eye Exam: Normal appearance Pupil Exam: NORMAL ACCOMODATION - ENT Exam ENT Exam: Mucous Membranes Moist - Respiratory Exam Respiratory Exam: Clear to PA & Lateral, NORMAL BREATHING PATTERN - Cardiovascular Exam Cardiovascular Exam: REGULAR RHYTHM - GI/Abdominal Exam GI & Abdominal Exam: Normal Bowel Sounds - Back Exam Back exam: NORMAL INSPECTION - Neurological Exam Neurological exam: Alert, CN II-XII Intact, Oriented x3 - Psychiatric Exam Psychiatric exam: Normal Affect - Skin Skin Exam: Normal Color Discharge Plan - Follow Up Plan Condition: FAIR Disposition: REHAB FACILITY/REHAB UNIT Instructions: Immune Thrombocytopenia (ITP) (DC) Additional Instructions: D/C to TCU Referrals: Sanya Mays MD [Family Provider] -
== END 2017-12-12 18:50 | DRG 977 ==
LOC: H.ER 10:25 → H.ERHOLD 16:44 → H.MEDSURG1 21:28 → OBSVTOIN 12-09 16:09
PROVIDERS: ADMIT Family Medicine; ATTEND Family Medicine
PROC: 30233R1 Transfusion of Nonautologous Platelets into Peripheral Vein, Percutaneous Approach (ICD-10-PCS; 2017-12-09)
PROC: 07DR3ZZ Extraction of Iliac Bone Marrow, Percutaneous Approach (ICD-10-PCS; principal; 2017-12-12)
DX: D69.59 Other secondary thrombocytopenia (principal); B20 Human immunodeficiency virus [HIV] disease; K76.6 Portal hypertension; I85.10 Secondary esophageal varices without bleeding; D73.1 Hypersplenism; K70.30 Alcoholic cirrhosis of liver without ascites; E53.8 Deficiency of other specified B group vitamins; F10.10 Alcohol abuse, uncomplicated; R07.89 Other chest pain; M06.9 Rheumatoid arthritis, unspecified; K59.00 Constipation, unspecified; Z86.11 Personal history of tuberculosis

== ENCOUNTER 2017-12-12 17:14 | Inpatient (IN) | payer MEDICARE ==
[2017-12-13 06:51] LABS: BASO % 0.5 % (0.0-2.0); EOS # 0.1 K/uL (0.0-0.7); EOS % 3.6 % (0.0-4.0); HEMOGLOBIN 8.5 g/dL (12.0-18.0); LYMPH # 0.3 K/uL (1.0-4.3); LYMPH % 15.5 % (20.0-40.0); MEAN CELL VOLUME 75.4 fl (80.0-94.0); MEAN CORPUSCULAR HEMOGLOBIN 24.6 pg (27.0-31.0); MEAN CORPUSCULAR HGB CONC 32.6 g/dL (33.0-37.0); MEAN PLATELET VOLUME 10.6 fl (7.2-11.7); MONO # 0.2 K/uL (0.0-0.8); MONO % 7.3 % (0.0-10.0); NEUT # 1.6 K/uL (1.8-7.0); NEUT % 73.1 % (50.0-75.0); NRBC % 0.4 % (0.0-0.0); RBC 3.45 Mil/uL (4.40-5.90); RED CELL DISTRIBUTION WIDTH 17.9 % (11.5-14.5); WHITE BLOOD COUNT 2.1 K/uL (4.8-10.8)
[2017-12-13 06:55] LABS: ALB/GLOB RATIO 0.5 (1.0-2.1); ALBUMIN 2.3 g/dL (3.5-5.0); ALT/SGPT 34 U/L (21-72); AST/SGOT 33 U/L (17-59); BLOOD UREA NITROGEN 11 mg/dl (9-20); CALCIUM 8.1 mg/dL (8.4-10.2); GFR AFRICAN-AMERICAN > 60; GFR NON-AFRICAN AMERICAN > 60
[2017-12-13 07:09] LABS: INR 1.3 (0.9-1.2); PROTHROMBIN TIME 14.8 Seconds (9.8-13.1)
[2017-12-13] MEDS: Emtricitabine-Tenofovir 200 mg-300 mg Tab PO SCH (08:57)
--- NOTE | 2017-12-13 11:17 | CP.PCM.HP ---
History of Present Illness - History of Present Illness History of Present Illness: 61 y/o M with PMH including HIV, liver cirrhosis and chronic thrombocytopenia presented with chest pain, SOB, and cough. Patient subsequently admitted due to severe thrombocytopenia (16,000) and received platelet transfusion, patient was found to be Pancytopenic and placed on isolation due to low ANC. HemOnc, Dr. Dulce Maria Nayak consulted who kalyn' 2 doses of granix and performed bone marrow biopsy on 12/12/17 (Pending). Patient was given vitamin K for abnormal coag, Vitamin B12 and Folic acid due to low level found on labs, normal TSH. Work up for chest pain and SOB, CXR, EKG, Troponins unremarkable and patient is s/p empirical IV abx for CAP. Echo on 12/08: normal EF with normal LV function. He has been experiencing lower extremity weakness and inability to ambulate so PT was consulted who recom' TCU and patient was transferred to TCU for further evaluation and treatment. PMHx: HIV on HAART, Cirrhosis, History of TB, Rheumatoid arthritis, H/O platelet transfusion last year PSHX: Esophageal Varices s/p 5 bands 09/06/17 Family Hx: Denies Social Hx: Past history of alcohol abuse, cocaine and IV drug abuse in . Present on Admission - Present on Admission Any Indicators Present on Admission: Yes History of DVT/PE: No History of Uncontrolled Diabetes: No Urinary Catheter: No Decubitus Ulcer Present: No Past Patient History - Infectious Disease Hx of Infectious Diseases: None - Past Medical History & Family History Past Medical History?: Yes - Past Social History Smoking Status: Smoker Currrent Status Unknown - CARDIAC Hx Hypertension: Yes - PULMONARY Hx Respiratory Disorders: No - NEUROLOGICAL Hx Neurological Disorder: No - HEENT Hx HEENT Problems: No - RENAL Hx Chronic Kidney Disease: No - ENDOCRINE/METABOLIC Hx Endocrine Disorders: No - HEMATOLOGICAL/ONCOLOGICAL Hx Blood Disorders: Yes Hx Blood Transfusions: Yes Hx Cirrhosis: Yes Hx Human Immunodeficiency Virus (HIV): Yes - INTEGUMENTARY Hx Dermatological Problems: No - MUSCULOSKELETAL/RHEUMATOLOGICAL Hx Arthritis: Yes - GASTROINTESTINAL Hx Gastrointestinal Disorders: Yes Hx Esophageal Varices: Yes - GENITOURINARY/GYNECOLOGICAL Hx Genitourinary Disorders: No - PSYCHIATRIC Hx Substance Use: Yes - SURGICAL HISTORY Hx Surgeries: Yes - ANESTHESIA Hx Anesthesia: No Hx Anesthesia Reactions: No Hx Malignant Hyperthermia: No Meds Allergies/Adverse Reactions: Allergies Allergy/AdvReac Type Severity Reaction Status Date / Time No Known Allergies Allergy Verified 12/12/17 17:22 Physical Exam - Constitutional Appears: No Acute Distress - Head Exam Head Exam: ATRAUMATIC - Eye Exam Eye Exam: Normal appearance - ENT Exam ENT Exam: Mucous Membranes Moist - Neck Exam Neck exam: Positive for: Normal Inspection - Respiratory Exam Respiratory Exam: Clear to Auscultation Bilateral, NORMAL BREATHING PATTERN - Cardiovascular Exam Cardiovascular Exam: REGULAR RHYTHM - GI/Abdominal Exam GI & Abdominal Exam: Normal Bowel Sounds, Soft - Extremities Exam Extremities exam: Positive for: normal inspection - Back Exam Back exam: NORMAL INSPECTION - Neurological Exam Neurological exam: Alert, CN II-XII Intact, Oriented x3 - Psychiatric Exam Psychiatric exam: Normal Affect - Skin Skin Exam: Dry, Intact, Normal Color, Warm Results - Vital Signs Recent Vital Signs: Last Vital Signs Temp 97.7 F 12/13/17 08:00 Pulse 73 12/13/17 08:55 Resp 18 12/13/17 08:00 BP 110/70 12/13/17 09:35 Pulse Ox 98 12/13/17 09:35 - Labs Result Diagrams: 12/13/17 05:45 12/13/17 05:45 Labs: Laboratory Results - last 24 hr 12/13/17 12/13/17 12/13/17 05:45 05:45 05:45 WBC 2.1 L RBC 3.45 L Hgb 8.5 L Hct 26.0 L MCV 75.4 L MCH 24.6 L MCHC 32.6 L RDW 17.9 H Plt Count 32 L MPV 10.6 Neut % (Auto) 73.1 Lymph % (Auto) 15.5 L [place] % (Auto) 7.3 Eos % (Auto) 3.6 Baso % (Auto) 0.5 Neut # (Auto) 1.6 L Lymph # (Auto) 0.3 L [place] # (Auto) 0.2 Eos # (Auto) 0.1 Baso # (Auto) 0.0 PT 14.8 H INR 1.3 H Sodium 143 Potassium 4.1 Chloride 114 H Carbon Dioxide 22 Anion Gap 11 BUN 11 Creatinine 0.8 Est GFR ( Amer) > 60 Est GFR (Non-Af Amer) > 60 Random Glucose 90 Calcium 8.1 L Total Bilirubin 0.6 AST 33 ALT 34 Alkaline Phosphatase 93 Total Protein 6.7 Albumin 2.3 L D Globulin 4.4 H Albumin/Globulin Ratio 0.5 L Assessment & Plan - Assessment and Plan (Free Text) Assessment: A/P: 61 y/o M with PMH including HIV, liver cirrhosis and chronic thrombocytopenia presented with chest pain, SOB, cough. Patient subsequently admitted due to severe thrombocytopenia (16,000) and received platelet transfusion. He has been experiencing lower extremity weakness and inability to ambulate so PT was consulted and transferred to TCU. Pancytopenia, with thrombocytopenia -Acute on chronic -Etiology possibly secondary to liver cirrhosis/Hypersplenism -S/P 2 units platelet transfusion on 12/09 with improvement from 16 > 34 -Platelets today at 32 -Patient for Isolation due to ANC -WBC 2.1 today -S/p Vitamin K 5mg dose on 12/12, PT/INR mildly improved -S/p Granix 480 mcq SC -No signs of active bleeding -Hem/Onc consultation appreciated by Dr Nayak -Bone marrow biopsy done 12/12/17, Follow up Lower extremity weakness -Etiology undetermined possibly secondary to deconditioning vs other metabolic process -Vitamin B12: 291, s/p B12 INJ -Folate 2.5, 1mg PO folic acid daily from today -CPK <20, TSH 2.6 -PT evaluation appreciated: Continue TCU/PT Productive Cough, improving -CXR does not detect a focal pulmonary infiltrate -Due to productive nature of cough and immunosupression, will continue with treatment for possible CAP -S/p Empirical IV antibiotic treatment for CAP -Influenza swab negative Liver cirrhosis w/esophageal varices and portal hypertension -Chronic, Cryptogenic -S/P EGD with banding on previous visit -MELD Score: 20, 3 month month mortality is 19.6 -C/W Nadolol 40mg daily as recommended by GI on the last visit AIDS -Last CD4 10/04/17: 143. Viral load: <20. -PCP prophylaxis d/c by Primary care physician -Continue Darunavir, Truvada, Norvir Rheumatoid arthritis -Hold sulfasalazine. Patient states he hasn't been taking it because of abdominal discomfort. -Fall precautions Chest pain, Atypical, resolved -Troponins x3 negative -EKG detects no ischemic changes -Pain likely musculoskeletal in etiology DVT Prophylaxis -SCDs for now for DVT prophylaxis (Patient increased bleeding risk with low plt)
--- NOTE | 2017-12-13 12:31 | CP.PCM.CON ---
History of Present Illness - History of Present Illness History of Present Illness: This is a 62 yrs old male with HIV+ve disease on retroviral drugs, who was admitted with c/o intractable cough and pancytopenia. Pt also has a h/o alcoholic liver disease with portal hypertension, causing pancytopenia in the past . He has had capping done for the esophageal varices.Now his platelet count was lower, as was the WBC. He was gfiven 2 doses of granix and count came up to 3.9. His platelets which had come up to 52K went back down to 29k. A bone marrow aspiration was done yesterday , results to follow. He has been transferred to TCU for physical therapy. Past Patient History - Infectious Disease Hx of Infectious Diseases: None - Past Medical History & Family History Past Medical History?: Yes - Past Social History Smoking Status: Smoker Currrent Status Unknown - CARDIAC Hx Hypertension: Yes - PULMONARY Hx Respiratory Disorders: No - NEUROLOGICAL Hx Neurological Disorder: No - HEENT Hx HEENT Problems: No - RENAL Hx Chronic Kidney Disease: No - ENDOCRINE/METABOLIC Hx Endocrine Disorders: No - HEMATOLOGICAL/ONCOLOGICAL Hx Blood Disorders: Yes Hx Blood Transfusions: Yes Hx Cirrhosis: Yes Hx Human Immunodeficiency Virus (HIV): Yes - INTEGUMENTARY Hx Dermatological Problems: No - MUSCULOSKELETAL/RHEUMATOLOGICAL Hx Arthritis: Yes - GASTROINTESTINAL Hx Gastrointestinal Disorders: Yes Hx Esophageal Varices: Yes - GENITOURINARY/GYNECOLOGICAL Hx Genitourinary Disorders: No - PSYCHIATRIC Hx Substance Use: Yes - SURGICAL HISTORY Hx Surgeries: Yes - ANESTHESIA Hx Anesthesia: No Hx Anesthesia Reactions: No Hx Malignant Hyperthermia: No Meds Allergies/Adverse Reactions: Allergies Allergy/AdvReac Type Severity Reaction Status Date / Time No Known Allergies Allergy Verified 12/12/17 17:22 - Medications Medications: Current Medications Amitriptyline HCl (Elavil) 10 mg PO HS COUNTS INCLUDE 234 BEDS AT THE [facility] Last Admin: 12/12/17 21:31 Dose: 10 mg Clonazepam (Klonopin) 1 mg PO HS COUNTS INCLUDE 234 BEDS AT THE [facility] Last Admin: 12/12/17 21:31 Dose: 1 mg Darunavir (Prezista) 800 mg PO DAILY COUNTS INCLUDE 234 BEDS AT THE [facility] Last Admin: 12/13/17 08:56 Dose: 800 mg Duloxetine HCl (Cymbalta) 60 mg PO HS COUNTS INCLUDE 234 BEDS AT THE [facility] Last Admin: 12/12/17 21:31 Dose: 60 mg Emtricitabine/Tenofovir (Truvada 200 Mg-300 Mg) 1 tab PO DAILY COUNTS INCLUDE 234 BEDS AT THE [facility] Last Admin: 12/13/17 08:57 Dose: 1 tab Escitalopram Oxalate (Lexapro) 20 mg PO HS COUNTS INCLUDE 234 BEDS AT THE [facility] Last Admin: 12/12/17 21:31 Dose: 20 mg Ferrous Sulfate (Feosol) 325 mg PO Q12 COUNTS INCLUDE 234 BEDS AT THE [facility] Last Admin: 12/13/17 08:55 Dose: 325 mg Folic Acid (Folic Acid) 1 mg PO DAILY COUNTS INCLUDE 234 BEDS AT THE [facility] Last Admin: 12/13/17 08:56 Dose: 1 mg Mirtazapine (Remeron) 45 mg PO DAILY COUNTS INCLUDE 234 BEDS AT THE [facility] Last Admin: 12/13/17 08:57 Dose: 45 mg Nadolol (Corgard) 40 mg PO DAILY COUNTS INCLUDE 234 BEDS AT THE [facility] Last Admin: 12/13/17 08:55 Dose: 40 mg Quetiapine Fumarate (Seroquel) 100 mg PO HS COUNTS INCLUDE 234 BEDS AT THE [facility] Last Admin: 12/12/17 21:31 Dose: 100 mg Quetiapine Fumarate (Seroquel) 50 mg PO DAILY COUNTS INCLUDE 234 BEDS AT THE [facility] Last Admin: 12/13/17 08:58 Dose: 50 mg Ritonavir (Norvir) 100 mg PO DAILY COUNTS INCLUDE 234 BEDS AT THE [facility] Last Admin: 12/13/17 08:57 Dose: 100 mg Sennosides (Senokot Tab) 8.6 mg PO HS COUNTS INCLUDE 234 BEDS AT THE [facility] Last Admin: 12/12/17 21:32 Dose: Not Given Physical Exam - Additional Findings Additional findings: P/E alerty,well oriented in no acute distress neck; Supple, no adenopathy Chest; Clear, no rales or rhonchi Heart; RSR, no murmur Abd; Soft, spleen 1 cm below left costal klie Results - Vital Signs Recent Vital Signs: Last Vital Signs Temp 97.7 F 12/13/17 08:00 Pulse 73 12/13/17 08:55 Resp 18 12/13/17 08:00 BP 110/70 12/13/17 09:35 Pulse Ox 98 12/13/17 09:35 - Labs Result Diagrams: 12/13/17 05:45 12/13/17 05:45 Labs: Laboratory Results - last 24 hr 12/13/17 12/13/17 12/13/17 05:45 05:45 05:45 WBC 2.1 L RBC 3.45 L Hgb 8.5 L Hct 26.0 L MCV 75.4 L MCH 24.6 L MCHC 32.6 L RDW 17.9 H Plt Count 32 L MPV 10.6 Neut % (Auto) 73.1 Lymph % (Auto) 15.5 L [place] % (Auto) 7.3 Eos % (Auto) 3.6 Baso % (Auto) 0.5 Neut # (Auto) 1.6 L Lymph # (Auto) 0.3 L [place] # (Auto) 0.2 Eos # (Auto) 0.1 Baso # (Auto) 0.0 PT 14.8 H INR 1.3 H Sodium 143 Potassium 4.1 Chloride 114 H Carbon Dioxide 22 Anion Gap 11 BUN 11 Creatinine 0.8 Est GFR ( Amer) > 60 Est GFR (Non-Af Amer) > 60 Random Glucose 90 Calcium 8.1 L Total Bilirubin 0.6 AST 33 ALT 34 Alkaline Phosphatase 93 Total Protein 6.7 Albumin 2.3 L D Globulin 4.4 H Albumin/Globulin Ratio 0.5 L
[2017-12-13 17:24] VITALS: RESP 20
[2017-12-14] MEDS: Emtricitabine-Tenofovir 200 mg-300 mg Tab PO SCH (08:37)
[2017-12-14 08:39] VITALS: BP 108/75
[2017-12-14 09:54] VITALS: TEMP 98.4; O2SAT 96
[2017-12-14 12:21] VITALS: PULSE 78
--- NOTE | 2017-12-14 13:57 | CP.PCM.DIS ---
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 Cytogenetics are pending and patient should f/u with Dr Rob Nayak. (2) AIDS Status: Chronic Comment: Currently on ARV and should c/w follow up with Venkata Palafox. market risk manager, Ms. Kacey Rojas contacted via eCW Telephone encounter regarding an appointment. (3) Liver cirrhosis Status: Chronic Comment: Chronic, controlled, but likely contributing to laboratory derangements. Hospital Course - Lab Results Lab Results: Most Recent Lab Values WBC 2.1 K/uL (4.8-10.8) L 12/13/17 05:45 RBC 3.45 Mil/uL (4.40-5.90) L 12/13/17 05:45 Hgb 8.5 g/dL (12.0-18.0) L 12/13/17 05:45 Hct 26.0 % (35.0-51.0) L 12/13/17 05:45 MCV 75.4 fl (80.0-94.0) L 12/13/17 05:45 MCH 24.6 pg (27.0-31.0) L 12/13/17 05:45 MCHC 32.6 g/dL (33.0-37.0) L 12/13/17 05:45 RDW 17.9 % (11.5-14.5) H 12/13/17 05:45 Plt Count 32 K/uL (130-400) L 12/13/17 05:45 MPV 10.6 fl (7.2-11.7) 12/13/17 05:45 Neut % (Auto) 73.1 % (50.0-75.0) 12/13/17 05:45 Lymph % (Auto) 15.5 % (20.0-40.0) L 12/13/17 05:45 [place] % (Auto) 7.3 % (0.0-10.0) 12/13/17 05:45 Eos % (Auto) 3.6 % (0.0-4.0) 12/13/17 05:45 Baso % (Auto) 0.5 % (0.0-2.0) 12/13/17 05:45 Neut # (Auto) 1.6 K/uL (1.8-7.0) L 12/13/17 05:45 Lymph # (Auto) 0.3 K/uL (1.0-4.3) L 12/13/17 05:45 [place] # (Auto) 0.2 K/uL (0.0-0.8) 12/13/17 05:45 Eos # (Auto) 0.1 K/uL (0.0-0.7) 12/13/17 05:45 Baso # (Auto) 0.0 K/uL (0.0-0.2) 12/13/17 05:45 PT 14.8 Seconds (9.8-13.1) H 12/13/17 05:45 INR 1.3 (0.9-1.2) H 12/13/17 05:45 Sodium 143 mmol/l (132-148) 12/13/17 05:45 Potassium 4.1 MMOL/L (3.6-5.0) 12/13/17 05:45 Chloride 114 mmol/L (98-107) H 12/13/17 05:45 Carbon Dioxide 22 mmol/L (22-30) 12/13/17 05:45 Anion Gap 11 (10-20) 12/13/17 05:45 BUN 11 mg/dl (9-20) 12/13/17 05:45 Creatinine 0.8 mg/dl (0.8-1.5) 12/13/17 05:45 Est GFR ( Amer) > 60 12/13/17 05:45 Est GFR (Non-Af Amer) > 60 12/13/17 05:45 Random Glucose 90 mg/dL (75-110) 12/13/17 05:45 Calcium 8.1 mg/dL (8.4-10.2) L 12/13/17 05:45 Total Bilirubin 0.6 mg/dl (0.2-1.3) 12/13/17 05:45 AST 33 U/L (17-59) 12/13/17 05:45 ALT 34 U/L (21-72) 12/13/17 05:45 Alkaline Phosphatase 93 U/L (38-126) 12/13/17 05:45 Total Protein 6.7 G/DL (6.3-8.2) 12/13/17 05:45 Albumin 2.3 g/dL (3.5-5.0) L D 12/13/17 05:45 Globulin 4.4 gm/dL (2.2-3.9) H 12/13/17 05:45 Albumin/Globulin Ratio 0.5 (1.0-2.1) L 12/13/17 05:45 - Hospital Course Hospital Course: Patient seen and examined at bedside with attending. 61M admitted for chest pain, SOB, and cough. Cardiac work-up was negative, CXR was negative for effusion/infiltrate, and overall condition felt to be secondary to multiple underlying co-morbidities. Pt found to have acute on chronic thrombocytopenia which prompted platelet transfusion and evaluation by Dr Rob Nayak who administered granix and completed a bone marrow biopsy, the latter was negative for lymphoma/leukemia but showed showed abnormal myeloid maturation. Consultants Dr Rob Nayak No change in home medications Discharge Exam - Head Exam Head Exam: ATRAUMATIC - Eye Exam Eye Exam: EOMI, PERRL - Respiratory Exam Respiratory Exam: Clear to PA & Lateral, NORMAL BREATHING PATTERN - Cardiovascular Exam Cardiovascular Exam: REGULAR RHYTHM, +S1, +S2 - GI/Abdominal Exam GI & Abdominal Exam: Normal Bowel Sounds, Soft. absent: Tenderness - Neurological Exam Neurological exam: Alert, Oriented x3 - Psychiatric Exam Psychiatric exam: Normal Affect, Normal Mood - Skin Skin Exam: Dry, Warm Discharge Plan - Follow Up Plan Condition: GOOD Disposition: HOME/ ROUTINE Patient education suggested?: Yes Instructions: Myelodysplastic Syndromes (DC), Myelodysplastic Syndromes (GEN) Referrals: Sanya Mays MD [Family Provider] - 3 Days Danika Nayak MD [Staff Provider] - 2 Weeks
== END 2017-12-14 16:40 | disposition home or self-care (01) | DRG 808 ==
LOC: H.TCU 18:51
PROVIDERS: ADMIT Family Medicine; ATTEND Family Medicine
PROC: F07Z9ZZ Gait Training/Functional Ambulation Treatment (ICD-10-PCS; principal; 2017-12-12)
PROC: F07Z5ZZ Bed Mobility Treatment (ICD-10-PCS; 2017-12-12)
DX: D61.818 Other pancytopenia (principal); B20 Human immunodeficiency virus [HIV] disease; I85.10 Secondary esophageal varices without bleeding; K76.6 Portal hypertension; K70.30 Alcoholic cirrhosis of liver without ascites; M06.9 Rheumatoid arthritis, unspecified; R07.89 Other chest pain

== ENCOUNTER 2018-03-27 10:02 | Inpatient (IN) | payer MEDICARE, SELFPAY ==
[2018-03-27 10:02] VITALS: BMI 28.2
[2018-03-27 11:02] LABS: BASO % 0.4 % (0.0-2.0); EOS % 3.9 % (0.0-4.0); LYMPH # 0.2 K/uL (1.0-4.3); MEAN CORPUSCULAR HEMOGLOBIN 24.1 pg (27.0-31.0); MEAN CORPUSCULAR HGB CONC 31.7 g/dL (33.0-37.0); MEAN PLATELET VOLUME 10.7 fl (7.2-11.7); MONO # 0.1 K/uL (0.0-0.8); MONO % 6.9 % (0.0-10.0); NEUT # 0.9 K/uL (1.8-7.0); NEUT % 69.8 % (50.0-75.0); NRBC % 0.2 % (0.0-0.0); RBC 2.62 Mil/uL (4.40-5.90); RED CELL DISTRIBUTION WIDTH 17.6 % (11.5-14.5)
[2018-03-27 11:20] LABS: HEMOGLOBIN 6.3 g/dL (12.0-18.0)
[2018-03-27 11:22] LABS: WHITE BLOOD COUNT 1.3 K/uL (4.8-10.8)
--- NOTE | 2018-03-27 11:29 | ED PDOC ---
HPI: General Adult Time Seen by Provider: 03/27/18 10:26 Chief Complaint (Nursing): Dizziness/Lightheaded Chief Complaint (Provider): Abnormal Labs History Per: Patient History/Exam Limitations: no limitations Onset/Duration Of Symptoms: Hrs (GRINDER LAP) Current Symptoms Are (Timing): Still Present Additional Complaint(s): 62 year old male with a history of HIV and arthritis presents to the ED with chronic, generalized body aches, bloody stool and abnormal labs. Patient reports he was told to come in by his PMD because he has low platelets. He noticed red blood in his stool and had a nose bleed yesterday. He denies any bleeding today. Patient is compliant with his arthritis and HIV medications. Denies fever, anti coagulant use, NSAID use, cough, chest pain, diarrhea, vomiting, abdominal pain, and active bleeding. PMD: Dr. Sanya Mays Past Medical History Reviewed: Historical Data, Nursing Documentation, Vital Signs Vital Signs: Last Vital Signs Temp 96.8 F L 03/27/18 14:20 Pulse 91 H 03/27/18 14:20 Resp 20 03/27/18 14:20 BP 112/72 03/27/18 14:20 Pulse Ox 100 03/27/18 14:20 - Medical History PMH: Arthritis, Depression, HIV, HTN Denies: Chronic Kidney Disease - Surgical History Surgical History: Endoscopy - Family History Family History: States: Unknown Family Hx - Home Medications Home Medications: Ambulatory Orders Medication Instructions Recorded Clonazepam [Klonopin] 1 mg PO Q8 PRN 06/06/17 Emtricitabine/Tenofovir Diso 1 tab PO HS 06/06/17 [Truvada 200 MG-300 MG] Ritonavir [Norvir] 100 mg PO HS 06/06/17 Amitriptyline [Elavil] 10 mg PO Q12 12/08/17 Darunavir [Prezista] 800 mg PO HS 12/08/17 Escitalopram [Lexapro] 20 mg PO HS 12/08/17 Ferrous Sulfate [Feosol] 325 mg PO Q12 12/08/17 Quetiapine Fumarate [Seroquel] 50 mg PO HS 12/08/17 SulfaSALAzine [Azulfidine] 1,500 mg PO Q12 12/08/17 Mirtazapine [Mirtazapine] 45 mg PO HS 03/27/18 - Allergies Allergies/Adverse Reactions: Allergies Allergy/AdvReac Type Severity Reaction Status Date / Time No Known Allergies Allergy Verified 12/12/17 17:22 Review of Systems ROS Statement: Except As Marked, All Systems Reviewed And Found Negative Constitutional: Positive for: Other (generalized chronic body aches). Negative for: Fever Respiratory: Negative for: Cough Gastrointestinal: Positive for: Hematochezia (none today). Negative for: Nausea , Vomiting, Abdominal Pain, Diarrhea Neurological: Negative for: Other (syncope) Physical Exam - Reviewed Nursing Documentation Reviewed: Yes Vital Signs Reviewed: Yes - Physical Exam Appears: Positive for: No Acute Distress Head Exam: Positive for: ATRAUMATIC, NORMAL INSPECTION, NORMOCEPHALIC Skin: Positive for: Warm, Dry, Pallor Eye Exam: Positive for: EOMI, PERRL, Other (pale conjunctiva) Neck: Positive for: Normal, Painless ROM, Supple Cardiovascular/Chest: Positive for: Tachycardia Respiratory: Positive for: Normal Breath Sounds. Negative for: Respiratory Distress Gastrointestinal/Abdominal: Positive for: Normal Exam, Soft. Negative for: Tenderness Rectal: Positive for: Normal Exam. Negative for: Black Stool, Blood Streaked Stool Extremity: Positive for: Normal ROM. Negative for: Deformity Neurologic/Psych: Positive for: Alert, Oriented. Negative for: Motor/Sensory Deficits - Laboratory Results Result Diagrams: 03/27/18 10:57 03/27/18 10:57 - ECG O2 Sat by Pulse Oximetry: 97 (RA) Pulse Ox Interpretation: Normal Medical Decision Making Medical Decision Making: Time; 10:49 Impression: bloody stool, low platelet count and body aches Differential diagnoses include but are not limited to: pancytopenia, GI bleed with thrombocytopenia Peptic Ulcer Disease, hemorrhage due to thrombocytopenia, pancytopenia associated with rheumatoid arthritis Initial Plan: --Cross match --Blood type and screen --EKG --CMP --CBC --PTT --Prothrombin time --Pantoprazole 80 mg IVP --Blood cx Reviewed patient's past charts which reveal low WBC, hemoglobin and platelets as well as a CD-4 of 150 in January. Time: 11:57 Patient will be admitted to telemetry. Diagnosis is pancytopenia and GI bleed. Time: 12:03 --Consulted GI fellow for Dr. Landers who recommended protonix. --Rectal exam was normal (no blood or melena). Craps Dealer for exam was infrastructure tech Florinda. Scribe Attestation: Documented by Brenda Jiang, acting as a scribe for Estevan Durham MD Provider Scribe Attestation: All medical record entries made by the Scribe were at my direction and personally dictated by me. I have reviewed the chart and agree that the record accurately reflects my personal performance of the history, physical exam, medical decision making, and the department course for this patient. I have also personally directed, reviewed, and agree with the discharge instructions Disposition - Clinical Impression Clinical Impression: Pancytopenia, GI bleed - Patient ED Disposition Is Patient to be Admitted: Yes Discussed With : Jordan Couch Doctor Will See Patient In The: ED Counseled Patient/Family Regarding: Studies Performed, Diagnosis - Disposition Disposition Time: 11:57 Condition: FAIR - Pt Status Changed To: Hospital Disposition Of: Inpatient - Admit Certification Admit to Inpatient:: After my assessment, the patient will require hospitalization for at least two midnights. This is because of the severity of symptoms shown, intensity of services needed, and/or the medical risk in this patient being treated as an outpatient. - POA Present On Arrival: None
[2018-03-27 11:41] LABS: ALB/GLOB RATIO 0.6 (1.0-2.1); ALBUMIN 2.4 g/dL (3.5-5.0); ALT/SGPT 36 U/L (21-72); AST/SGOT 38 U/L (17-59); BLOOD UREA NITROGEN 11 mg/dl (9-20); CALCIUM 7.6 mg/dL (8.4-10.2); GFR AFRICAN-AMERICAN > 60; GFR NON-AFRICAN AMERICAN > 60
[2018-03-27 12:19] LABS: INR 1.2 (0.9-1.2); PROTHROMBIN TIME 13.8 Seconds (9.8-13.1)
[2018-03-27] MEDS ORDERED: EPINEPHrine 1 mg/ml (1:1000) Inj ONE (13:14)
[2018-03-27] MEDS ORDERED: Sodium Chloride 0.9% 1,000 ML IV ONE (13:17)
[2018-03-27] MEDS ORDERED: Propofol 10 mg/ml Inj (20 ML) ONE (13:27)
[2018-03-27] MEDS ORDERED: Etomidate 20 mg/10ml Inj IV ONE (13:27)
[2018-03-27] MEDS ORDERED: Sodium Chloride 0.9% 250 ML IV ONE (13:40)
--- NOTE | 2018-03-27 14:43 | CP.PCM.CON ---
<Tawana Elias - Last Filed: 03/27/18 14:48> History of Present Illness - History of Present Illness History of Present Illness: Initial PGY4 GI Consult Sandip Akhtar is a 62M w/ hx of HIV on HAART, cirrhosis who presented to the ED after being referred by his PCP for low blood count. As per pt, he was found to have a hgb of 6.7 on routine blood work as an oupt at Dr. Baptiste's office. He noted that he has been having darker stool for 1-2 weeks. He also at one time noted BRBPR x 1. He denies any hematemesis or coffee-ground emesis. He denies any nausea or vomiting. Upon arrive to the ED today, he was found to have a hgb of 6.3/19. He was given protonix in the ED. He denies any abd pain. He denies following any technical recruiter as an oupt. He has had previous EGDs, last 08/2017 which revealed grade three varicies s/p band ligation. He notes previously establishing care at [facility], but refused to return to the long distance. He denies taking any medications for his cirrohsis. He notes occasional confusion. He has also been taking daily naproxen for the past 2months. PMHx: HIV on HAART, Cirrhosis PSHX: nine Family Hx: denies any colon ca Social Hx: + smoking, previous social use of ETOH, previous hx of IV drug use Endoscopy Hx: EGD 2017: grade 3 varicies, 2014 [facility]: EGS colonscopy: EGD s/p esophageal varices banding and colonoscopy was poor prep ROS: 12point ROS conducted, neg other than above Past Patient History - Infectious Disease Hx of Infectious Diseases: None - Past Medical History & Family History Past Medical History?: Yes - Past Social History Smoking Status: Smoker Currrent Status Unknown - CARDIAC Hx Hypertension: Yes - PULMONARY Hx Respiratory Disorders: No - NEUROLOGICAL Hx Neurological Disorder: No - HEENT Hx HEENT Problems: No - RENAL Hx Chronic Kidney Disease: No - ENDOCRINE/METABOLIC Hx Endocrine Disorders: No - HEMATOLOGICAL/ONCOLOGICAL Hx Human Immunodeficiency Virus (HIV): Yes - INTEGUMENTARY Hx Dermatological Problems: No - MUSCULOSKELETAL/RHEUMATOLOGICAL Hx Arthritis: Yes - GASTROINTESTINAL Hx Gastrointestinal Disorders: Yes Hx Esophageal Varices: Yes - GENITOURINARY/GYNECOLOGICAL Hx Genitourinary Disorders: No - PSYCHIATRIC Hx Depression: Yes - SURGICAL HISTORY Hx Surgeries: No - ANESTHESIA Hx Anesthesia: No Hx Anesthesia Reactions: No Hx Malignant Hyperthermia: No Meds Allergies/Adverse Reactions: Allergies Allergy/AdvReac Type Severity Reaction Status Date / Time No Known Allergies Allergy Verified 12/12/17 17:22 - Medications Medications: Current Medications Octreotide Acetate 1,250 mcg/ (Sodium Chloride) 262.5 mls @ 10 mls/hr IV .Q24H JESS Last Admin: 03/27/18 14:14 Dose: 0 mls Physical Exam - Constitutional Appears: Well, No Acute Distress - Head Exam Head Exam: ATRAUMATIC, NORMOCEPHALIC - Eye Exam Eye Exam: Normal appearance - ENT Exam ENT Exam: Mucous Membranes Moist, Normal Exam - Neck Exam Neck exam: Positive for: Normal Inspection - Respiratory Exam Respiratory Exam: Clear to Auscultation Bilateral. absent: Rhonchi, Wheezes, Respiratory Distress, NORMAL BREATHING PATTERN - Cardiovascular Exam Cardiovascular Exam: REGULAR RHYTHM, +S1, +S2 - GI/Abdominal Exam GI & Abdominal Exam: Normal Bowel Sounds, Soft. absent: Distended, Firm, Guarding, Organomegaly, Rebound, Rigid, Tenderness - Rectal Exam Rectal Exam: NORMAL INSPECTION. absent: Black Stool, Hemorrhoids - Extremities Exam Extremities exam: Negative for: joint swelling, pedal edema - Neurological Exam Neurological exam: Alert, Oriented x3 - Psychiatric Exam Psychiatric exam: Normal Affect, Normal Mood - Skin Skin Exam: Dry, Intact, Normal Color, Warm Results - Vital Signs Recent Vital Signs: Last Vital Signs Temp 96.8 F L 03/27/18 14:20 Pulse 91 H 03/27/18 14:20 Resp 20 03/27/18 14:20 BP 112/72 03/27/18 14:20 Pulse Ox 100 03/27/18 14:20 - Labs Result Diagrams: 03/27/18 10:57 03/27/18 10:57 Labs: Laboratory Results - last 24 hr 03/27/18 03/27/18 03/27/18 10:57 10:57 11:54 WBC 1.3 L* RBC 2.62 L Hgb 6.3 L* Hct 19.9 L MCV 76.0 L D MCH 24.1 L MCHC 31.7 L RDW 17.6 H Plt Count 45 L MPV 10.7 Neut % (Auto) 69.8 Lymph % (Auto) 19.0 L [place] % (Auto) 6.9 Eos % (Auto) 3.9 Baso % (Auto) 0.4 Neut # (Auto) 0.9 L Lymph # (Auto) 0.2 L [place] # (Auto) 0.1 Eos # (Auto) 0.0 Baso # (Auto) 0.0 PT INR APTT Sodium 137 Potassium 3.7 Chloride 108 H Carbon Dioxide 22 Anion Gap 11 BUN 11 Creatinine 0.7 L Est GFR ( Amer) > 60 Est GFR (Non-Af Amer) > 60 Random Glucose 132 H Calcium 7.6 L Total Bilirubin 0.8 AST 38 ALT 36 Alkaline Phosphatase 105 Total Protein 6.6 Albumin 2.4 L Globulin 4.2 H Albumin/Globulin Ratio 0.6 L Blood Type Cancelled Antibody Screen Cancelled Crossmatch See Detail BBK History Checked Cancelled 03/27/18 03/27/18 12:00 12:00 WBC RBC Hgb Hct MCV MCH MCHC RDW Plt Count MPV Neut % (Auto) Lymph % (Auto) [place] % (Auto) Eos % (Auto) Baso % (Auto) Neut # (Auto) Lymph # (Auto) [place] # (Auto) Eos # (Auto) Baso # (Auto) PT 13.8 H INR 1.2 APTT 41.0 H Sodium Potassium Chloride Carbon Dioxide Anion Gap BUN Creatinine Est GFR ( Amer) Est GFR (Non-Af Amer) Random Glucose Calcium Total Bilirubin AST ALT Alkaline Phosphatase Total Protein Albumin Globulin Albumin/Globulin Ratio Blood Type O POSITIVE Antibody Screen Negative Crossmatch See Detail BBK History Checked Patient has bt Assessment & Plan - Assessment and Plan (Free Text) Assessment: Sandip Akhtar is a 61M w/ hx of esophageal varicies, portal HTN, Cirrhosis, and HIV on HAART who presents to the ER due anemia. s/p EGD POD #0. prominent x3 columns of grade 3 esophageal varcies extending from midesophagus to distal s/p 6 rubber band ligation Grade 3 varices, s/p 6 rubber band ligation Microcytic Anemia 2/2 above Acute on Chronic Thrombocytopenia likely 2/2 above and underlying cirrhosis Cryptogenic Cirrhosis Esophageal Varices, Portal HTN 2/2 cirrhosis Plan: -s/p octreotide 50mcg x1 -continue IV drip octreotide at 50mcg/hr -ceftriaxone 1g q 24hrs -hold PPi for now -keep hgb >7 -maintain 2 large IV bore lines -NPO except meds and ice chips -would benefit from reestablishing care with [facility] -will need to be started on propanolol prior to discharge -transfuse PLT, to keep count > 50 -rest of care as per primary team -recommend consult ID and oncology D/W Dr. Landers <Liz Landers - Last Filed: 03/27/18 17:55> Meds - Medications Medications: Current Medications Amitriptyline HCl (Elavil) 10 mg PO Q12 JESS Atovaquone (Mepron) 1,500 mg PO DAILY JESS PRN Reason: Protocol Clonazepam (Klonopin) 1 mg PO Q8 PRN PRN Reason: Anxiety Darunavir (Prezista) 800 mg PO HS JESS PRN Reason: Protocol Emtricitabine/Tenofovir (Truvada 200 Mg-300 Mg) 1 tab PO HS JESS PRN Reason: Protocol Escitalopram Oxalate (Lexapro) 20 mg PO HS JESS Octreotide Acetate 1,250 mcg/ (Sodium Chloride) 262.5 mls @ 10 mls/hr IV .Q24H JESS Last Admin: 03/27/18 14:14 Dose: 0 mls Dextrose/Sodium Chloride (Dextrose 5%/0.9% Ns 1000 Ml) 1,000 mls @ 125 mls/hr IV .Q8H JESS Stop: 03/28/18 16:12 Mirtazapine (Remeron) 45 mg PO HS JESS Quetiapine Fumarate (Seroquel) 50 mg PO HS JESS Quetiapine Fumarate (Seroquel) 100 mg PO DAILY JESS Ritonavir (Norvir) 100 mg PO HS JESS Results - Vital Signs Recent Vital Signs: Last Vital Signs Temp 98.2 F 03/27/18 16:33 Pulse 90 03/27/18 16:33 Resp 18 03/27/18 16:33 BP 119/72 03/27/18 16:33 Pulse Ox 100 03/27/18 16:33 - Labs Result Diagrams: 03/27/18 10:57 03/27/18 10:57 Labs: Laboratory Results - last 24 hr 03/27/18 03/27/18 03/27/18 10:57 10:57 11:54 WBC 1.3 L* RBC 2.62 L Hgb 6.3 L* Hct 19.9 L MCV 76.0 L D MCH 24.1 L MCHC 31.7 L RDW 17.6 H Plt Count 45 L MPV 10.7 Neut % (Auto) 69.8 Lymph % (Auto) 19.0 L [place] % (Auto) 6.9 Eos % (Auto) 3.9 Baso % (Auto) 0.4 Neut # (Auto) 0.9 L Lymph # (Auto) 0.2 L [place] # (Auto) 0.1 Eos # (Auto) 0.0 Baso # (Auto) 0.0 PT INR APTT Sodium 137 Potassium 3.7 Chloride 108 H Carbon Dioxide 22 Anion Gap 11 BUN 11 Creatinine 0.7 L Est GFR ( Amer) > 60 Est GFR (Non-Af Amer) > 60 Random Glucose 132 H Calcium 7.6 L Total Bilirubin 0.8 AST 38 ALT 36 Alkaline Phosphatase 105 Total Protein 6.6 Albumin 2.4 L Globulin 4.2 H Albumin/Globulin Ratio 0.6 L Blood Type Cancelled Antibody Screen Cancelled Crossmatch See Detail BBK History Checked Cancelled 03/27/18 03/27/18 12:00 12:00 WBC RBC Hgb Hct MCV MCH MCHC RDW Plt Count MPV Neut % (Auto) Lymph % (Auto) [place] % (Auto) Eos % (Auto) Baso % (Auto) Neut # (Auto) Lymph # (Auto) [place] # (Auto) Eos # (Auto) Baso # (Auto) PT 13.8 H INR 1.2 APTT 41.0 H Sodium Potassium Chloride Carbon Dioxide Anion Gap BUN Creatinine Est GFR ( Amer) Est GFR (Non-Af Amer) Random Glucose Calcium Total Bilirubin AST ALT Alkaline Phosphatase Total Protein Albumin Globulin Albumin/Globulin Ratio Blood Type O POSITIVE Antibody Screen Negative Crossmatch See Detail BBK History Checked Patient has bt Attending/Attestation - Attestation I have personally seen and examined this patient.: Yes I have fully participated in the care of the patient.: Yes I have reviewed all pertinent clinical information: Yes Notes (Text): 03/27/18 17:53 This is a 61 yr old M w/ hx of esophageal varicies, portal HTN, Cirrhosis, and HIV on HAART who presents to the ER due to anemia and melena s/p emergent EGD showing prominent x 3 columns of grade 3 esophageal varcies extending from midesophagus to distal s/p 6 rubber band ligation. Continue octreotide for 72 hours, npo today, serial cbc and antibiotics for 5 days. Will discharge on b chauncey due to poor outpatient follow up. Rest of care as per primary team
--- NOTE | 2018-03-27 15:48 | CP.PCM.HP ---
History of Present Illness - History of Present Illness History of Present Illness: 62 y/o male MDS, Cryptogenic cirrhosis, Thrombocytopenia, leukopenia, anemia, pancytopenia, HIV, arthritis, alcohol abuse/esophageal varices and extensive psych history admitted to [facility] for evaluation and treatment of low hemoglobin and one episode of bloody stool and malaise. As per patient he was called by his PMD today after finding out low HgB and was told to go to hospital for evaluation. Patient reports diarrhea since last 3 days and 1 episode of bloody stool yesterday (dark-brown in color)with associated 1 week history of SOB with exertion. Patient denies any appetite change, f/c/n/v, chest pain, abdominal pain, urinary symptoms. Patient is Poor historian -Endoscopy Hx: EGD 2016: grade 3 varicies, 2014 [facility]: EGS colonscopy: EGD s/p esophageal varices banding and colonoscopy was poor prep -01/16/18: CD4 170, Viral load <20 -12/12/17: bone marrow biopsy that showed abnormal myeloid maturation, but no evidence of lymphoma or leukemia PMD: Dr. Roth PMH: MDS, Cryptogenic cirrhosis, Thrombocytopenia, leukopenia, anemia, pancytopenia, HIV, alcohol abuse/esophageal varices and extensive psych history PSH: Denies Allg: KNDA Meds: See medication recon; FH: Unknown SH: Denies any alcohol, smoking or drug use ED Course: --Cross match --Blood type and screen --EKG --CMP: glucose 132, calcium 7.6 --CBC: 1.3>6.3/19.9<45 --PTT: 41 --Prothrombin time 13.8 --Pantoprazole 80 mg IVP --Blood cx Present on Admission - Present on Admission Any Indicators Present on Admission: Yes History of DVT/PE: No History of Uncontrolled Diabetes: No Urinary Catheter: No Decubitus Ulcer Present: No Past Patient History - Infectious Disease Hx of Infectious Diseases: None - Past Medical History & Family History Past Medical History?: Yes - Past Social History Smoking Status: Smoker Currrent Status Unknown - CARDIAC Hx Hypertension: Yes - PULMONARY Hx Respiratory Disorders: No - NEUROLOGICAL Hx Neurological Disorder: No - HEENT Hx HEENT Problems: No - RENAL Hx Chronic Kidney Disease: No - ENDOCRINE/METABOLIC Hx Endocrine Disorders: No - HEMATOLOGICAL/ONCOLOGICAL Hx Human Immunodeficiency Virus (HIV): Yes - INTEGUMENTARY Hx Dermatological Problems: No - MUSCULOSKELETAL/RHEUMATOLOGICAL Hx Arthritis: Yes - GASTROINTESTINAL Hx Gastrointestinal Disorders: Yes Hx Esophageal Varices: Yes - GENITOURINARY/GYNECOLOGICAL Hx Genitourinary Disorders: No - PSYCHIATRIC Hx Depression: Yes - SURGICAL HISTORY Hx Surgeries: No - ANESTHESIA Hx Anesthesia: No Hx Anesthesia Reactions: No Hx Malignant Hyperthermia: No Meds Allergies/Adverse Reactions: Allergies Allergy/AdvReac Type Severity Reaction Status Date / Time No Known Allergies Allergy Verified 12/12/17 17:22 Physical Exam - Constitutional Appears: No Acute Distress - Head Exam Head Exam: ATRAUMATIC - Eye Exam Eye Exam: EOMI, Normal appearance, PERRL Pupil Exam: NORMAL ACCOMODATION - ENT Exam ENT Exam: Mucous Membranes Moist, Normal External Ear Exam, TM's Normal Bilaterally - Neck Exam Neck exam: Positive for: Normal Inspection - Respiratory Exam Respiratory Exam: Clear to Auscultation Bilateral, NORMAL BREATHING PATTERN - Cardiovascular Exam Cardiovascular Exam: REGULAR RHYTHM - GI/Abdominal Exam GI & Abdominal Exam: Normal Bowel Sounds, Soft. absent: Guarding, Organomegaly , Tenderness - Extremities Exam Extremities exam: Positive for: normal capillary refill. Negative for: pedal edema, tenderness - Back Exam Back exam: NORMAL INSPECTION. absent: CVA tenderness (L), CVA tenderness (R) - Neurological Exam Neurological exam: Alert, CN II-XII Intact, Oriented x3, Reflexes Normal Additional comments: Decreased strength b/l UE and LE Severe osteoarthritis Results - Vital Signs Recent Vital Signs: Last Vital Signs Temp 96.8 F L 03/27/18 14:20 Pulse 91 H 03/27/18 14:20 Resp 20 03/27/18 14:20 BP 112/72 03/27/18 14:20 Pulse Ox 97 03/27/18 15:06 - Labs Result Diagrams: 03/27/18 10:57 03/27/18 10:57 Labs: Laboratory Results - last 24 hr 03/27/18 03/27/18 03/27/18 10:57 10:57 11:54 WBC 1.3 L* RBC 2.62 L Hgb 6.3 L* Hct 19.9 L MCV 76.0 L D MCH 24.1 L MCHC 31.7 L RDW 17.6 H Plt Count 45 L MPV 10.7 Neut % (Auto) 69.8 Lymph % (Auto) 19.0 L [place] % (Auto) 6.9 Eos % (Auto) 3.9 Baso % (Auto) 0.4 Neut # (Auto) 0.9 L Lymph # (Auto) 0.2 L [place] # (Auto) 0.1 Eos # (Auto) 0.0 Baso # (Auto) 0.0 PT INR APTT Sodium 137 Potassium 3.7 Chloride 108 H Carbon Dioxide 22 Anion Gap 11 BUN 11 Creatinine 0.7 L Est GFR ( Amer) > 60 Est GFR (Non-Af Amer) > 60 Random Glucose 132 H Calcium 7.6 L Total Bilirubin 0.8 AST 38 ALT 36 Alkaline Phosphatase 105 Total Protein 6.6 Albumin 2.4 L Globulin 4.2 H Albumin/Globulin Ratio 0.6 L Blood Type Cancelled Antibody Screen Cancelled Crossmatch See Detail BBK History Checked Cancelled 03/27/18 03/27/18 12:00 12:00 WBC RBC Hgb Hct MCV MCH MCHC RDW Plt Count MPV Neut % (Auto) Lymph % (Auto) [place] % (Auto) Eos % (Auto) Baso % (Auto) Neut # (Auto) Lymph # (Auto) [place] # (Auto) Eos # (Auto) Baso # (Auto) PT 13.8 H INR 1.2 APTT 41.0 H Sodium Potassium Chloride Carbon Dioxide Anion Gap BUN Creatinine Est GFR ( Amer) Est GFR (Non-Af Amer) Random Glucose Calcium Total Bilirubin AST ALT Alkaline Phosphatase Total Protein Albumin Globulin Albumin/Globulin Ratio Blood Type O POSITIVE Antibody Screen Negative Crossmatch See Detail BBK History Checked Patient has bt Assessment & Plan - Assessment and Plan (Free Text) Assessment: A/P: 62 y/o male MDS, Cryptogenic cirrhosis, Thrombocytopenia, leukopenia, anemia, pancytopenia, HIV, arthritis, alcohol abuse/esophageal varices and extensive psych history admitted to [facility] for evaluation and treatment of low hemoglobin and one episode of bloody stool and malaise. GI bleed/ Bloody stool - HR 90s - CBC: 1.3>6.3/19.9<45 - 2U pRBCs - Endoscopy Hx: EGD 2017: grade 3 varicies, 2015 [facility]: EGS colonscopy: EGD s/p esophageal varices banding and colonoscopy was poor prep - GI, Dr. Landers consult appreciated; s/p emergent EGD showing prominent x 3 columns of grade 3 esophageal varcies extending from midesophagus to distal s/p 6 rubber band ligation. Continue octreotide for 72 hours, npo today, serial cbc and antibiotics for 5 days. Will discharge on b chauncey due to poor outpatient follow up. - S/p Endoscopy - Follow up CBC - C/w GI kalyn' - NPO for today - C/w Ceftriaxone IV HIV on HAART - 01/16/18: CD4 170, Viral load <20 - Compliant with medications - Will c/w home meds (Dr. Roth made aware), Norvir, Prezista and Truvada - PPX Atovaquone was started - F/u blood, urine cx - F/u CXR - F/u CD4/8 counts and viral load Myelodysplastic syndromes (MDS) - CBC: 1.3>6.3/19.9<45 - ANC 907 - 12/12/17: bone marrow biopsy that showed abnormal myeloid maturation, but no evidence of lymphoma or leukemia - Hem-Onc Consult, Dr. Rob Nayak, will follow recs, - Daily labs Pancytopenia, with thrombocytopenia - CBC: 1.3>6.3/19.9<45 - Hem-Onc Consult, Dr. Rob Nayak, will follow recs, - Daily labs Rheumatoid arthritis -C/w Sulfasalazine. -Fall precautions Extensive psychiatric history -C/w home medication -[facility] was called and varified DVT Prophylaxis -SCDs for now for DVT prophylaxis (MDS)
[2018-03-27] MEDS ORDERED: Sodium Chloride 0.9% 1,000 ML IV SCH (16:00)
[2018-03-27] MEDS: Atovaquone 750 mg/5 ml Susp UD PO SCH (18:05)
[2018-03-27] MEDS: Dextrose 5%/0.9% NS 1,000 ML IV SCH ×2 (18:52→23:45)
[2018-03-27] MEDS ORDERED: RITONAVIR 100 MG PO SCH (22:00)
[2018-03-27] MEDS: Emtricitabine-Tenofovir 200 mg-300 mg Tab PO SCH (22:25)
[2018-03-28 01:38] LABS: URINE BILIRUBIN NEGATIVE (NEGATIVE); URINE BLOOD NEGATIVE (NEGATIVE); URINE CLARITY CLEAR (Clear); URINE COLOR YELLOW (YELLOW); URINE GLUCOSE (UA) NEG (Normal); URINE LEUKOCYTE ESTERASE NEG Leu/uL (Negative); URINE PROTEIN NEGATIVE (NEGATIVE); URINE UROBILINOGEN 0.2-1.0 mg/dL (0.2-1.0)
[2018-03-28] MEDS: Emtricitabine-Tenofovir 200 mg-300 mg Tab PO SCH ×2 (01:47→22:04)
[2018-03-28 02:02] LABS: BARBITURATES, UR NEGATIVE (NEGATIVE); BENZODIAZEPINES, UR NEGATIVE (NEGATIVE); OPIATES, UR NEGATIVE (NEGATIVE); PHENCYCLIDINE, UR NEGATIVE (NEGATIVE)
[2018-03-28 05:30] LABS: BASO % 0.3 % (0.0-2.0); LYMPH # 0.2 K/uL (1.0-4.3); LYMPH % 19.4 % (20.0-40.0); MEAN CELL VOLUME 76.6 fl (80.0-94.0); MEAN CORPUSCULAR HEMOGLOBIN 24.6 pg (27.0-31.0); MEAN PLATELET VOLUME 10.6 fl (7.2-11.7); MONO # 0.1 K/uL (0.0-0.8); MONO % 7.4 % (0.0-10.0); NEUT # 0.9 K/uL (1.8-7.0); NEUT % 69.9 % (50.0-75.0); NRBC % 0.1 % (0.0-0.0); RBC 2.6 Mil/uL (4.40-5.90); RED CELL DISTRIBUTION WIDTH 17.6 % (11.5-14.5)
[2018-03-28 05:34] LABS: ALB/GLOB RATIO 0.6 (1.0-2.1); ALBUMIN 2.4 g/dL (3.5-5.0); ALT/SGPT 30 U/L (21-72); AST/SGOT 42 U/L (17-59); BLOOD UREA NITROGEN 10 mg/dl (9-20); CALCIUM 7.3 mg/dL (8.4-10.2); GFR AFRICAN-AMERICAN > 60; GFR NON-AFRICAN AMERICAN > 60
[2018-03-28 05:41] LABS: HEMOGLOBIN 6.4 g/dL (12.0-18.0); WHITE BLOOD COUNT 1.3 K/uL (4.8-10.8)
[2018-03-28] MEDS: Dextrose 5%/0.9% NS 1,000 ML IV SCH (09:28)
[2018-03-28] MEDS: Atovaquone 750 mg/5 ml Susp UD PO SCH (09:29)
--- NOTE | 2018-03-28 09:44 | CP.PCM.PN ---
Subjective - Date & Time of Evaluation Date of Evaluation: 03/28/18 Time of Evaluation: 09:44 - Subjective Subjective: Pt does not have MDS, was worked up by Dr. Nayak in the past, and workup was neg for MDS. Overnight Pt had an endoscopy done with GI, multiple varices were noted and banded. Pt seen and examined this AM. Pt states that he is feeling better today. No nausea currently, no episode of hemetamesis or bloody BM overnight. Denies chest pain, dyspnea, n/v, chills and remains afebrile. Objective - Vital Signs/Intake and Output Vital Signs (last 24 hours): Temp Pulse Resp BP Pulse Ox 98.3 F 88 18 124/77 97 03/28/18 07:54 03/28/18 07:54 03/28/18 07:54 03/28/18 07:54 03/28/18 07:54 - Medications Medications: Current Medications Amitriptyline HCl (Elavil) 10 mg PO Q12 [facility] Last Admin: 03/28/18 09:29 Dose: 10 mg Atovaquone (Mepron) 1,500 mg PO DAILY JESS PRN Reason: Protocol Last Admin: 03/28/18 09:29 Dose: 1,500 mg Clonazepam (Klonopin) 1 mg PO Q8 PRN PRN Reason: Anxiety Darunavir (Prezista) 800 mg PO HS JESS PRN Reason: Protocol Last Admin: 03/28/18 01:46 Dose: 800 mg Emtricitabine/Tenofovir (Truvada 200 Mg-300 Mg) 1 tab PO HS JESS PRN Reason: Protocol Last Admin: 03/28/18 01:47 Dose: 1 tab Escitalopram Oxalate (Lexapro) 20 mg PO HS JESS Last Admin: 03/28/18 01:46 Dose: 20 mg Octreotide Acetate 1,250 mcg/ (Sodium Chloride) 262.5 mls @ 10 mls/hr IV .Q24H JESS Last Admin: 03/27/18 14:14 Dose: 0 mls Dextrose/Sodium Chloride (Dextrose 5%/0.9% Ns 1000 Ml) 1,000 mls @ 125 mls/hr IV .Q8H JESS Stop: 03/28/18 16:12 Last Admin: 03/28/18 09:28 Dose: 125 mls/hr Ceftriaxone Sodium 1 gm/ (Sodium Chloride) 100 mls @ 100 mls/hr IVPB DAILY [facility] PRN Reason: Protocol Stop: 04/01/18 16:00 Mirtazapine (Remeron) 45 mg PO HS [facility] Last Admin: 03/28/18 01:47 Dose: 45 mg Quetiapine Fumarate (Seroquel) 50 mg PO HS [facility] Last Admin: 03/28/18 01:47 Dose: 50 mg Quetiapine Fumarate (Seroquel) 100 mg PO DAILY [facility] Last Admin: 03/28/18 09:30 Dose: 100 mg Ritonavir (Norvir) 100 mg PO HS [facility] Last Admin: 03/28/18 09:30 Dose: 100 mg - Labs Labs: 03/28/18 04:20 03/28/18 04:20 PT 13.8 Seconds (9.8-13.1) H 03/27/18 12:00 INR 1.2 (0.9-1.2) 03/27/18 12:00 APTT 41.0 Seconds (25.6-37.1) H 03/27/18 12:00 - Constitutional Appears: No Acute Distress, Other (pallor ) - Head Exam Head Exam: ATRAUMATIC - Eye Exam Eye Exam: EOMI - Respiratory Exam Respiratory Exam: Clear to Ausculation Bilateral, NORMAL BREATHING PATTERN. absent: Wheezes - Cardiovascular Exam Cardiovascular Exam: REGULAR RHYTHM, +S1, +S2 - GI/Abdominal Exam GI & Abdominal Exam: Soft, Normal Bowel Sounds. absent: Distended, Guarding, Tenderness - Extremities Exam Extremities Exam: Normal Inspection. absent: Calf Tenderness, Pedal Edema - Neurological Exam Neurological Exam: Alert, Awake, Oriented x3 - Psychiatric Exam Psychiatric exam: Normal Affect, Normal Mood - Skin Skin Exam: Mottled, Pallor Assessment and Plan - Assessment and Plan (Free Text) Assessment: Assessment/Plan: 62 YO male with PMHx of Cryptogenic cirrhosis, pancytopenia, HIV, arthritis, alcohol abuse/esophageal varices is admitted to [facility] for hematochezia and symptomatic anemia. Hematochezia, acute GI bleed -stable -Endorscopy with esophageal varices, s/p 6x band ligation -hb/hct 6.4/19.9 today -GI on consult; octreotide at 50mcg/hr, ceftriaxone 1g q 24hrs (x5Days), clear diet, started on propanolol prior to discharge -cont to monitor AIDS, on ARV -01/16/18: CD4 170, Viral load <20 -PCP prophylaxis with Mepron -Compliant with ARV medications -Will c/w home meds (Dr. Roth made aware), Norvir, Prezista and Truvada -F/u CD4, viral load -F/u CXR Pancytopenia, with thrombocytopenia -chronic, likely 2/2 to HIV, cirrhosis -NOT MDS -CBC: 1.3>6.4/19.9<44 -s/p 1 unit of PRBC overnight -order 1 more unit of PRBC today -Hem/Onc on Consult, Dr. Nayak; granix until ANC comes to over 2000. -cont to monitor Rheumatoid arthritis -C/w Sulfasalazine. -Fall precautions Extensive psychiatric history -C/w home medication -Pharmacy was called and rx verified DVT Prophylaxis -SCDs for now for DVT prophylaxis, low platelets
--- NOTE | 2018-03-28 11:10 | CP.PCM.PN ---
<Tawana Elias - Last Filed: 03/28/18 11:11> Subjective - Date & Time of Evaluation Date of Evaluation: 03/28/18 Time of Evaluation: 07:10 - Subjective Subjective: PGY 4 GI Follow-up Pt seen and examined bedside Denies any abd pain has pain in his joints in extremities Denies any overnight rectal bleeding, hematemsis ROS: 12 point ROS conducted, neg other than above Objective - Vital Signs/Intake and Output Vital Signs (last 24 hours): Temp Pulse Resp BP Pulse Ox 98.3 F 88 18 124/77 97 03/28/18 07:54 03/28/18 09:00 03/28/18 07:54 03/28/18 07:54 03/28/18 07:54 - Medications Medications: Current Medications Amitriptyline HCl (Elavil) 10 mg PO Q12 JESS Last Admin: 03/28/18 09:29 Dose: 10 mg Atovaquone (Mepron) 1,500 mg PO DAILY JESS PRN Reason: Protocol Last Admin: 03/28/18 09:29 Dose: 1,500 mg Clonazepam (Klonopin) 1 mg PO Q8 PRN PRN Reason: Anxiety Darunavir (Prezista) 800 mg PO HS JESS PRN Reason: Protocol Last Admin: 03/28/18 01:46 Dose: 800 mg Emtricitabine/Tenofovir (Truvada 200 Mg-300 Mg) 1 tab PO HS JESS PRN Reason: Protocol Last Admin: 03/28/18 01:47 Dose: 1 tab Escitalopram Oxalate (Lexapro) 20 mg PO HS JESS Last Admin: 03/28/18 01:46 Dose: 20 mg Octreotide Acetate 1,250 mcg/ (Sodium Chloride) 262.5 mls @ 10 mls/hr IV .Q24H JESS Last Admin: 03/27/18 14:14 Dose: 0 mls Dextrose/Sodium Chloride (Dextrose 5%/0.9% Ns 1000 Ml) 1,000 mls @ 125 mls/hr IV .Q8H JESS Stop: 03/28/18 16:12 Last Admin: 03/28/18 09:28 Dose: 125 mls/hr Ceftriaxone Sodium 1 gm/ (Sodium Chloride) 100 mls @ 100 mls/hr IVPB DAILY JESS PRN Reason: Protocol Stop: 06/17/18 16:00 Lactulose (Enulose) 20 gm PO BID PRN PRN Reason: Constipation Mirtazapine (Remeron) 45 mg PO [facility] Last Admin: 03/28/18 01:47 Dose: 45 mg Quetiapine Fumarate (Seroquel) 50 mg PO HS [facility] Last Admin: 03/28/18 01:47 Dose: 50 mg Quetiapine Fumarate (Seroquel) 100 mg PO DAILY [facility] Last Admin: 03/28/18 09:30 Dose: 100 mg Ritonavir (Norvir) 100 mg PO HS [facility] Last Admin: 03/28/18 09:30 Dose: 100 mg - Labs Labs: 03/28/18 04:20 03/28/18 04:20 PT 13.8 Seconds (9.8-13.1) H 03/27/18 12:00 INR 1.2 (0.9-1.2) 03/27/18 12:00 APTT 41.0 Seconds (25.6-37.1) H 03/27/18 12:00 - Constitutional Appears: Well, No Acute Distress, Chronically Ill - Head Exam Head Exam: ATRAUMATIC, NORMOCEPHALIC - Eye Exam Eye Exam: Normal appearance - ENT Exam ENT Exam: Mucous Membranes Moist, Normal Exam - Neck Exam Neck Exam: Normal Inspection - Respiratory Exam Respiratory Exam: Clear to Ausculation Bilateral, NORMAL BREATHING PATTERN. absent: Rales, Rhonchi, Wheezes, Respiratory Distress - Cardiovascular Exam Cardiovascular Exam: REGULAR RHYTHM, +S1, +S2 - GI/Abdominal Exam GI & Abdominal Exam: Soft, Normal Bowel Sounds. absent: Distended, Firm, Guarding, Rigid, Tenderness, Organomegaly - Extremities Exam Extremities Exam: Joint Swelling. absent: Pedal Edema - Neurological Exam Neurological Exam: Alert, Awake, Oriented x3 - Psychiatric Exam Psychiatric exam: Normal Affect, Normal Mood - Skin Skin Exam: Dry, Intact, Normal Color, Warm Assessment and Plan - Assessment and Plan (Free Text) Assessment: Sandip Akhtar is a 61M w/ hx of esophageal varicies, portal HTN, Cirrhosis, and HIV on HAART who presents to the ER due anemia. s/p EGD POD #1. prominent x3 columns of grade 3 esophageal varcies extending from midesophagus to distal s/p 6 rubber band ligation Grade 3 varices, s/p 6 rubber band ligation Microcytic Anemia 2/2 above Acute on Chronic Thrombocytopenia likely 2/2 above and underlying cirrhosis Cryptogenic Cirrhosis Esophageal Varices, Portal HTN 2/2 cirrhosis Hepatic encephalopathy Plan: -continue IV drip octreotide at 50mcg/hr -ceftriaxone 1g q 24hrs -hold PPi for now -keep hgb >7 -maintain 2 large IV bore lines -start clear diet -would benefit from reestablishing care with [facility] -will need to be started on propanolol prior to discharge -hen/onc consulted, would appreciate input -will start in laculose 20g BID, titrate for 2-3 BM daily -rest of care as per primary team D/W Dr. Landers <Liz Landers - Last Filed: 03/28/18 20:12> Objective - Vital Signs/Intake and Output Vital Signs (last 24 hours): Temp Pulse Resp BP Pulse Ox 97.7 F 87 20 127/74 97 03/28/18 16:20 03/28/18 16:20 03/28/18 16:20 03/28/18 16:20 03/28/18 16:20 - Medications Medications: Current Medications Amitriptyline HCl (Elavil) 10 mg PO Q12 JESS Last Admin: 03/28/18 09:29 Dose: 10 mg Atovaquone (Mepron) 1,500 mg PO DAILY JESS PRN Reason: Protocol Last Admin: 03/28/18 09:29 Dose: 1,500 mg Clonazepam (Klonopin) 1 mg PO Q8 PRN PRN Reason: Anxiety Darunavir (Prezista) 800 mg PO HS JESS PRN Reason: Protocol Last Admin: 03/28/18 01:46 Dose: 800 mg Emtricitabine/Tenofovir (Truvada 200 Mg-300 Mg) 1 tab PO HS JESS PRN Reason: Protocol Last Admin: 03/28/18 01:47 Dose: 1 tab Escitalopram Oxalate (Lexapro) 20 mg PO HS JESS Last Admin: 03/28/18 01:46 Dose: 20 mg Octreotide Acetate 1,250 mcg/ (Sodium Chloride) 262.5 mls @ 10 mls/hr IV .Q24H JESS Last Admin: 03/28/18 14:46 Dose: 10 mls/hr Ceftriaxone Sodium 1 gm/ (Sodium Chloride) 100 mls @ 100 mls/hr IVPB DAILY JESS PRN Reason: Protocol Stop: 06/17/18 16:00 Last Admin: 03/28/18 13:24 Dose: 100 mls/hr Lactulose (Enulose) 20 gm PO BID PRN PRN Reason: Constipation Mirtazapine (Remeron) 45 mg PO HS [facility] Last Admin: 03/28/18 01:47 Dose: 45 mg Morphine Sulfate (Morphine) 2 mg IVP Q6 PRN PRN Reason: Pain, moderate (4-7) Quetiapine Fumarate (Seroquel) 50 mg PO HS [facility] Last Admin: 03/28/18 01:47 Dose: 50 mg Quetiapine Fumarate (Seroquel) 100 mg PO DAILY [facility] Last Admin: 03/28/18 09:30 Dose: 100 mg Ritonavir (Norvir) 100 mg PO HS [facility] Last Admin: 03/28/18 09:30 Dose: 100 mg - Labs Labs: 03/28/18 04:20 03/28/18 04:20 PT 13.8 Seconds (9.8-13.1) H 03/27/18 12:00 INR 1.2 (0.9-1.2) 03/27/18 12:00 APTT 41.0 Seconds (25.6-37.1) H 03/27/18 12:00 Attending/Attestation - Attestation I have personally seen and examined this patient.: Yes I have fully participated in the care of the patient.: Yes I have reviewed all pertinent clinical information, including history, physical exam and plan: Yes Notes (Text): 03/28/18 20:10 This is a 61 yr old M w/ hx of esophageal varicies, portal HTN, Cirrhosis, and HIV on HAART who presents to the ER due to anemia and melena s/p emergent EGD showing prominent x 3 columns of grade 3 esophageal varcies extending from midesophagus to distal s/p 6 rubber band ligation. Continue octreotide for 72 hours, low salt diet, serial cbc and antibiotics for 5 days. Today on exam he had mild encephalopathy for which will start lactulose po daily- titrate to 2 BM /day. Will discharge on b chauncey due to poor outpatient follow up. Rest of care as per primary team
--- NOTE | 2018-03-28 11:35 | CARD ---
APPROVED REPORT EKG Measurement Heart [id number] <Conclusion> Normal sinus rhythm Normal ECG
--- NOTE | 2018-03-28 12:00 | CP.PCM.CON ---
History of Present Illness - History of Present Illness History of Present Illness: This is a 62 yrs old male whom I have seen a coiple of times when he has been admitted to the hospital. He has HIV disease on retroviral drugs,he has increased alcohol intake ans has cirrhosis with large varices. . These have been capped beforw and pt did a little better for a short while. He continued to drink, an did not visit the knitting inspector he was referred to. Last admission he had pancytopenia. He was transfused RBC and platelets and given granix. His platelets were still low so I did a bone marrow test on him. He had a normocellular marrow. Probably because of the recent granix the marrow showed some dysplasia in the white cxells. Because MDS was suspected I did a flow cytometry , Cytogenetics and FISH. There was no evidence of MDS. His pancytopenis is probably secondary to cirrhosis,varices,portal hypertension and hypersplenism, Also contributing could be the HIV disease and the retroviral drugs. He has now come in for anemia and rectal bleeding, he had a endoscopy with capping of some of the varices. and was transfused.packed cells as well. His WBC was 1.3 with ANC of 900.hgb 6.4, and platelets 45K. No fever or vomiting.was Past Patient History - Infectious Disease Hx of Infectious Diseases: None - Past Medical History & Family History Past Medical History?: Yes - Past Social History Smoking Status: Smoker Currrent Status Unknown - CARDIAC Hx Hypertension: Yes - PULMONARY Hx Respiratory Disorders: No - NEUROLOGICAL Hx Neurological Disorder: No - HEENT Hx HEENT Problems: No - RENAL Hx Chronic Kidney Disease: No - ENDOCRINE/METABOLIC Hx Endocrine Disorders: No - HEMATOLOGICAL/ONCOLOGICAL Hx Human Immunodeficiency Virus (HIV): Yes - INTEGUMENTARY Hx Dermatological Problems: No - MUSCULOSKELETAL/RHEUMATOLOGICAL Hx Arthritis: Yes - GASTROINTESTINAL Hx Gastrointestinal Disorders: Yes Hx Esophageal Varices: Yes - GENITOURINARY/GYNECOLOGICAL Hx Genitourinary Disorders: No - PSYCHIATRIC Hx Depression: Yes - SURGICAL HISTORY Hx Surgeries: No - ANESTHESIA Hx Anesthesia: No Hx Anesthesia Reactions: No Hx Malignant Hyperthermia: No Meds Allergies/Adverse Reactions: Allergies Allergy/AdvReac Type Severity Reaction Status Date / Time No Known Allergies Allergy Verified 12/12/17 17:22 - Medications Medications: Current Medications Amitriptyline HCl (Elavil) 10 mg PO Q12 JESS Last Admin: 03/28/18 09:29 Dose: 10 mg Atovaquone (Mepron) 1,500 mg PO DAILY JESS PRN Reason: Protocol Last Admin: 03/28/18 09:29 Dose: 1,500 mg Clonazepam (Klonopin) 1 mg PO Q8 PRN PRN Reason: Anxiety Darunavir (Prezista) 800 mg PO HS JESS PRN Reason: Protocol Last Admin: 03/28/18 01:46 Dose: 800 mg Emtricitabine/Tenofovir (Truvada 200 Mg-300 Mg) 1 tab PO HS JESS PRN Reason: Protocol Last Admin: 03/28/18 01:47 Dose: 1 tab Escitalopram Oxalate (Lexapro) 20 mg PO HS [facility] Last Admin: 03/28/18 01:46 Dose: 20 mg Octreotide Acetate 1,250 mcg/ (Sodium Chloride) 262.5 mls @ 10 mls/hr IV .Q24H [facility] Last Admin: 03/27/18 14:14 Dose: 0 mls Dextrose/Sodium Chloride (Dextrose 5%/0.9% Ns 1000 Ml) 1,000 mls @ 125 mls/hr IV .Q8H JESS Stop: 03/28/18 16:12 Last Admin: 03/28/18 09:28 Dose: 125 mls/hr Ceftriaxone Sodium 1 gm/ (Sodium Chloride) 100 mls @ 100 mls/hr IVPB DAILY [facility] PRN Reason: Protocol Stop: 04/01/18 16:00 Lactulose (Enulose) 20 gm PO BID PRN PRN Reason: Constipation Mirtazapine (Remeron) [address] [facility] Last Admin: 03/28/18 01:47 Dose: 45 mg Quetiapine Fumarate (Seroquel) 50 mg PO HS [facility] Last Admin: 03/28/18 01:47 Dose: 50 mg Quetiapine Fumarate (Seroquel) 100 mg PO DAILY [facility] Last Admin: 03/28/18 09:30 Dose: 100 mg Ritonavir (Norvir) [address] [facility] Last Admin: 03/28/18 09:30 Dose: 100 mg Physical Exam - Additional Findings Additional findings: Physical Exam; Alert, well oriented in no acute distress neck; Supple, no adenopathy Chest; clear, no rales or rhonchi Heart; RSR, mno murmur abd; Some ascitisis present, but no organomegaly Results - Vital Signs Recent Vital Signs: Last Vital Signs Temp 98.3 F 03/28/18 07:54 Pulse 88 03/28/18 09:00 Resp 18 03/28/18 07:54 BP 124/77 03/28/18 07:54 Pulse Ox 97 03/28/18 07:54 - Labs Result Diagrams: 03/28/18 04:20 03/28/18 04:20 Labs: Laboratory Results - last 24 hr 03/27/18 03/27/18 03/27/18 11:54 12:00 12:00 WBC RBC Hgb Hct MCV MCH MCHC RDW Plt Count MPV Neut % (Auto) Lymph % (Auto) [place] % (Auto) Eos % (Auto) Baso % (Auto) Neut # (Auto) Lymph # (Auto) [place] # (Auto) Eos # (Auto) Baso # (Auto) PT 13.8 H INR 1.2 APTT 41.0 H Sodium Potassium Chloride Carbon Dioxide Anion Gap BUN Creatinine Est GFR ( Amer) Est GFR (Non-Af Amer) Random Glucose Calcium Total Bilirubin AST ALT Alkaline Phosphatase Total Protein Albumin Globulin Albumin/Globulin Ratio Procalcitonin Urine Color Urine Clarity Urine pH Ur Specific [place] Urine Protein Urine Glucose (UA) Urine Ketones Urine Blood Urine Nitrate Urine Bilirubin Urine Urobilinogen Ur Leukocyte Esterase Urine RBC (Auto) Urine Opiates Screen Urine Methadone Screen Ur Barbiturates Screen Ur Phencyclidine Scrn Ur Amphetamines Screen U Benzodiazepines Scrn U Oth Cocaine Metabols U Cannabinoids Screen Alcohol, Quantitative Blood Type Cancelled O POSITIVE Antibody Screen Cancelled Negative Crossmatch See Detail See Detail BBK History Checked Cancelled Patient has bt 03/27/18 03/27/18 03/28/18 19:05 19:05 01:00 WBC RBC Hgb Hct MCV MCH MCHC RDW Plt Count MPV Neut % (Auto) Lymph % (Auto) [place] % (Auto) Eos % (Auto) Baso % (Auto) Neut # (Auto) Lymph # (Auto) [place] # (Auto) Eos # (Auto) Baso # (Auto) PT INR APTT Sodium Potassium Chloride Carbon Dioxide Anion Gap BUN Creatinine Est GFR ( Amer) Est GFR (Non-Af Amer) Random Glucose Calcium Total Bilirubin AST ALT Alkaline Phosphatase Total Protein Albumin Globulin Albumin/Globulin Ratio Procalcitonin < 0.05 L Urine Color Yellow Urine Clarity Clear Urine pH 6.0 Ur Specific [place] 1.014 Urine Protein Negative Urine Glucose (UA) Neg Urine Ketones Negative Urine Blood Negative Urine Nitrate Negative Urine Bilirubin Negative Urine Urobilinogen 0.2-1.0 Ur Leukocyte Esterase Neg Urine RBC (Auto) 1 Urine Opiates Screen Urine Methadone Screen Ur Barbiturates Screen Ur Phencyclidine Scrn Ur Amphetamines Screen U Benzodiazepines Scrn U Oth Cocaine Metabols U Cannabinoids Screen Alcohol, Quantitative < 10 Blood Type Antibody Screen Crossmatch BBK History Checked 03/28/18 03/28/18 03/28/18 01:00 04:20 04:20 WBC 1.3 L* RBC 2.60 L Hgb 6.4 L* Hct 19.9 L MCV 76.6 L MCH 24.6 L MCHC 32.0 L RDW 17.6 H Plt Count 44 L MPV 10.6 Neut % (Auto) 69.9 Lymph % (Auto) 19.[address] [place] % (Auto) 7.4 Eos % (Auto) 3.0 Baso % (Auto) 0.3 Neut # (Auto) 0.9 L Lymph # (Auto) 0.[address] [place] # (Auto) 0.1 Eos # (Auto) 0.0 Baso # (Auto) 0.0 PT INR APTT Sodium 140 Potassium 4.1 Chloride 108 H Carbon Dioxide 25 Anion Gap 11 BUN 10 Creatinine 0.9 Est GFR ( Amer) > 60 Est GFR (Non-Af Amer) > 60 Random Glucose 156 H Calcium 7.3 L Total Bilirubin 0.6 AST 42 ALT 30 Alkaline Phosphatase 90 Total Protein 6.3 Albumin 2.4 L Globulin 4.0 H Albumin/Globulin Ratio 0.6 L Procalcitonin Urine Color Urine Clarity Urine pH Ur Specific [place] Urine Protein Urine Glucose (UA) Urine Ketones Urine Blood Urine Nitrate Urine Bilirubin Urine Urobilinogen Ur Leukocyte Esterase Urine RBC (Auto) Urine Opiates Screen Negative Urine Methadone Screen Negative Ur Barbiturates Screen Negative Ur Phencyclidine Scrn Negative Ur Amphetamines Screen Negative U Benzodiazepines Scrn Negative U Oth Cocaine Metabols Negative U Cannabinoids Screen Negative Alcohol, Quantitative Blood Type Antibody Screen Crossmatch BBK History Checked Assessment & Plan - Assessment and Plan (Free Text) Assessment: Impression GI bleeding from esophageal varices. Pancytopenia from cirrhosis and hypersplenism, along with HIV and retroviral drugs, Pt does not have a MDS Plan: plan; Pt will be transfused as needed Will start granix until ANC comes to over 2000. - Date & Time Date: 03/28/18 Time: 12:15
--- NOTE | 2018-03-28 16:27 | RAD ---
HISTORY: MDS, AIDs COMPARISON: 12/09/2017 TECHNIQUE: Chest PA and lateral FINDINGS: LUNGS: Minimal left basilar subsegmental atelectasis. No acute infiltrate. PLEURA: No significant pleural effusion identified. No pneumothorax apparent. CARDIOVASCULAR: Normal. OSSEOUS STRUCTURES: No significant abnormalities. VISUALIZED UPPER ABDOMEN: Normal. OTHER FINDINGS: None. IMPRESSION: Left basilar subsegmental atelectasis
--- NOTE | 2018-03-29 07:22 | CP.PCM.PN ---
Subjective - Date & Time of Evaluation Date of Evaluation: 03/29/18 Time of Evaluation: 07:22 - Subjective Subjective: S/p 1 unit of PRBC and 1x Granix yesterday No acute overnight events. Pt states that since admission he has not had any nausea and no further episodes of vomiting. Endorsing joint pain all over his body, rates pain as 5/10. Denies chest pain, dyspnea, n/v/d/c, chills and fevers. Objective - Vital Signs/Intake and Output Vital Signs (last 24 hours): Temp Pulse Resp BP Pulse Ox 99.1 F 107 H 18 139/81 96 03/29/18 04:37 03/29/18 04:37 03/29/18 04:37 03/29/18 04:37 03/29/18 04:37 - Medications Medications: Current Medications Amitriptyline HCl (Elavil) 10 mg PO Q12 [facility] Last Admin: 03/28/18 22:04 Dose: 10 mg Atovaquone (Mepron) 1,500 mg PO DAILY [facility] PRN Reason: Protocol Last Admin: 03/28/18 09:29 Dose: 1,500 mg Clonazepam (Klonopin) 1 mg PO Q8 PRN PRN Reason: Anxiety Darunavir (Prezista) 800 mg PO HS [facility] PRN Reason: Protocol Last Admin: 03/28/18 22:04 Dose: 800 mg Emtricitabine/Tenofovir (Truvada 200 Mg-300 Mg) 1 tab PO HS [facility] PRN Reason: Protocol Last Admin: 03/28/18 22:04 Dose: 1 tab Escitalopram Oxalate (Lexapro) 20 mg PO HS [facility] Last Admin: 03/28/18 22:04 Dose: 20 mg Octreotide Acetate 1,250 mcg/ (Sodium Chloride) 262.5 mls @ 10 mls/hr IV .Q24H [facility] Last Admin: 03/28/18 14:46 Dose: 10 mls/hr Ceftriaxone Sodium 1 gm/ (Sodium Chloride) 100 mls @ 100 mls/hr IVPB DAILY [facility] PRN Reason: Protocol Stop: 04/01/18 16:00 Last Admin: 03/28/18 13:24 Dose: 100 mls/hr Lactulose (Enulose) 20 gm PO BID PRN PRN Reason: Constipation Mirtazapine (Remeron) 45 mg PO HS [facility] Last Admin: 03/28/18 22:05 Dose: 45 mg Morphine Sulfate (Morphine) 2 mg IVP Q6 PRN PRN Reason: Pain, moderate (4-7) Quetiapine Fumarate (Seroquel) 50 mg PO [facility] Last Admin: 03/28/18 22:04 Dose: 50 mg Quetiapine Fumarate (Seroquel) 100 mg PO DAILY [facility] Last Admin: 03/28/18 09:30 Dose: 100 mg Ritonavir (Norvir) 100 mg PO [facility] Last Admin: 03/28/18 22:03 Dose: 100 mg - Labs Labs: 03/28/18 04:20 03/28/18 04:20 PT 13.8 Seconds (9.8-13.1) H 03/27/18 12:00 INR 1.2 (0.9-1.2) 03/27/18 12:00 APTT 41.0 Seconds (25.6-37.1) H 03/27/18 12:00 - Constitutional Appears: No Acute Distress, Cachectic, Other (skin color has improved, not as pale as yesterday. NC 2L O2 ) - Head Exam Head Exam: ATRAUMATIC, NORMAL INSPECTION - Respiratory Exam Respiratory Exam: Clear to Ausculation Bilateral, NORMAL BREATHING PATTERN. absent: Rhonchi, Wheezes - Cardiovascular Exam Cardiovascular Exam: REGULAR RHYTHM, +S1, +S2 - GI/Abdominal Exam GI & Abdominal Exam: Soft, Normal Bowel Sounds. absent: Distended, Tenderness Additional comments: no fluid wave appreciated - Skin Skin Exam: Dry, Intact, Pallor (improved from previously ), Warm. absent: Mottled Assessment and Plan - Assessment and Plan (Free Text) Assessment: Assessment/Plan: 62 YO male with PMHx of Cryptogenic cirrhosis, pancytopenia, HIV, arthritis, alcohol abuse/esophageal varices is admitted to [facility] for hematochezia and pancytopenia. Hematochezia, acute GI bleed -stable -Endorscopy with esophageal varices, s/p 6x band ligation -hb/hct 7.9/24.5 today -FOBT pos -GI on consult; octreotide at 10mcg/hr x 72 hrs (D2), ceftriaxone 1g q 24hrs x5Days (D2), liquid diet, started on propanolol prior to discharge -cont to monitor Cryptogenic cirrhosis -chronic -GI on consult -Cont Rocephin x 5 days (D2) for SBP prophylaxis -Lactulose Q1 for BM -MELD score 6: 6% estimated 3 month mortality -Child-Mcguire score 7, class B; indication for transplantation AIDS, on ARV -01/16/18: CD4 170, Viral load <20 -PCP prophylaxis with Mepron -Chest X-ray: left basilar segmental atelecatasis -Compliant with ARV medications -Will c/w home meds (Dr. Roth made aware), Norvir, Prezista and Truvada -F/u CD4, viral load Pancytopenia, with thrombocytopenia -chronic, likely 2/2 to HIV, cirrhosis -NOT MDS per hem/onc -s/p 2 unit of PRBC total -s/p 1 unit of granix -Hem/Onc on Consult, Dr. Nayak; granix until ANC comes to over 2000. -cont to monitor Rheumatoid arthritis -Sulfasalazine on hold -start Motrin for pain low dose (okay per GI) and Morphine for pain -Fall precautions Extensive psychiatric history -C/w home medication -Pharmacy was called and rx verified DVT Prophylaxis -SCDs for now for DVT prophylaxis, low platelets
--- NOTE | 2018-03-29 08:03 | CP.PCM.PN ---
<Tawana Elias - Last Filed: 03/29/18 10:25> Subjective - Date & Time of Evaluation Date of Evaluation: 03/29/18 Time of Evaluation: 07:00 - Subjective Subjective: PGY4 GI Follow-up Note Pt seen and examined bedside still has ext pain over joints Denies BM for 3 days tolerating diet ROS: 12 point ROS conducted, neg other than above Objective - Vital Signs/Intake and Output Vital Signs (last 24 hours): Temp Pulse Resp BP Pulse Ox 99.1 F 107 H 18 139/81 96 03/29/18 04:37 03/29/18 04:37 03/29/18 04:37 03/29/18 04:37 03/29/18 04:37 - Medications Medications: Current Medications Amitriptyline HCl (Elavil) 10 mg PO Q12 [facility] Last Admin: 03/28/18 22:04 Dose: 10 mg Atovaquone (Mepron) 1,500 mg PO DAILY [facility] PRN Reason: Protocol Last Admin: 03/28/18 09:29 Dose: 1,500 mg Clonazepam (Klonopin) 1 mg PO Q8 PRN PRN Reason: Anxiety Darunavir (Prezista) 800 mg PO HS JESS PRN Reason: Protocol Last Admin: 03/28/18 22:04 Dose: 800 mg Emtricitabine/Tenofovir (Truvada 200 Mg-300 Mg) 1 tab PO HS JESS PRN Reason: Protocol Last Admin: 03/28/18 22:04 Dose: 1 tab Escitalopram Oxalate (Lexapro) 20 mg PO HS [facility] Last Admin: 03/28/18 22:04 Dose: 20 mg Octreotide Acetate 1,250 mcg/ (Sodium Chloride) 262.5 mls @ 10 mls/hr IV .Q24H [facility] Last Admin: 03/28/18 14:46 Dose: 10 mls/hr Ceftriaxone Sodium 1 gm/ (Sodium Chloride) 100 mls @ 100 mls/hr IVPB DAILY JESS PRN Reason: Protocol Stop: 04/01/18 16:00 Last Admin: 03/28/18 13:24 Dose: 100 mls/hr Lactulose (Enulose) 20 gm PO BID PRN PRN Reason: Constipation Mirtazapine (Remeron) 45 mg PO HS [facility] Last Admin: 03/28/18 22:05 Dose: 45 mg Morphine Sulfate (Morphine) 2 mg IVP Q6 PRN PRN Reason: Pain, moderate (4-7) Quetiapine Fumarate (Seroquel) 50 mg PO HS [facility] Last Admin: 03/28/18 22:04 Dose: 50 mg Quetiapine Fumarate (Seroquel) 100 mg PO DAILY [facility] Last Admin: 03/28/18 09:30 Dose: 100 mg Ritonavir (Norvir) 100 mg PO HS [facility] Last Admin: 03/28/18 22:03 Dose: 100 mg - Labs Labs: 03/28/18 04:20 03/28/18 04:20 PT 13.8 Seconds (9.8-13.1) H 03/27/18 12:00 INR 1.2 (0.9-1.2) 03/27/18 12:00 APTT 41.0 Seconds (25.6-37.1) H 03/27/18 12:00 - Constitutional Appears: Well, No Acute Distress - Head Exam Head Exam: ATRAUMATIC, NORMOCEPHALIC - Eye Exam Eye Exam: Normal appearance - ENT Exam ENT Exam: Mucous Membranes Moist, TM's Normal Bilaterally - Respiratory Exam Respiratory Exam: Clear to Ausculation Bilateral, NORMAL BREATHING PATTERN. absent: Rales, Rhonchi, Wheezes, Respiratory Distress - Cardiovascular Exam Cardiovascular Exam: REGULAR RHYTHM, +S1, +S2 - GI/Abdominal Exam GI & Abdominal Exam: Soft, Normal Bowel Sounds. absent: Distended, Firm, Guarding, Rigid, Tenderness, Organomegaly - Extremities Exam Extremities Exam: Joint Swelling. absent: Pedal Edema - Neurological Exam Neurological Exam: Alert, Awake, Oriented x3 - Psychiatric Exam Psychiatric exam: Normal Affect, Normal Mood - Skin Skin Exam: Dry, Intact, Normal Color, Warm Assessment and Plan - Assessment and Plan (Free Text) Assessment: Sandip Akhtar is a 61M w/ hx of esophageal varicies, portal HTN, Cirrhosis, and HIV on HAART who presents to the ER due anemia. s/p EGD POD #2. prominent x3 columns of grade 3 esophageal varcies extending from midesophagus to distal s/p 6 rubber band ligation Grade 3 varices, s/p 6 rubber band ligation Microcytic Anemia 2/2 above Acute on Chronic Thrombocytopenia likely 2/2 above and underlying cirrhosis Cryptogenic Cirrhosis Portal HTN 2/2 cirrhosis Hepatic encephalopathy Plan: -can discontinue octreotide -s/p 1 unit PRBC 03/28/18, overall 2 units PRBC and 1 unit platelets transfused since admission -hgb > 7, monitor daily -ceftriaxone 1g q 24hrs -hold PPi for now -keep hgb >7 -maintain 2 large IV bore lines -continue clear diet -start on propanolol prior to discharge -reviewed hematology cx note, unlikely pt has MDS -lactulose q 1 hr until BM -rest of care as per primary team will D/W Dr. Landers <Liz Landers - Last Filed: 03/29/18 14:28> Objective - Vital Signs/Intake and Output Vital Signs (last 24 hours): Temp Pulse Resp BP Pulse Ox 98.3 F 116 H 20 113/73 94 L 03/29/18 11:59 03/29/18 11:59 03/29/18 11:59 03/29/18 11:59 03/29/18 11:59 - Medications Medications: Current Medications Amitriptyline HCl (Elavil) 10 mg PO Q12 [facility] Last Admin: 03/29/18 09:48 Dose: 10 mg Atovaquone (Mepron) 1,500 mg PO DAILY [facility] PRN Reason: Protocol Last Admin: 03/29/18 09:54 Dose: 1,500 mg Clonazepam (Klonopin) 1 mg PO Q8 PRN PRN Reason: Anxiety Darunavir (Prezista) 800 mg PO HS [facility] PRN Reason: Protocol Last Admin: 03/28/18 22:04 Dose: 800 mg Emtricitabine/Tenofovir (Truvada 200 Mg-300 Mg) 1 tab PO HS [facility] PRN Reason: Protocol Last Admin: 03/28/18 22:04 Dose: 1 tab Escitalopram Oxalate (Lexapro) 20 mg PO HS [facility] Last Admin: 03/28/18 22:04 Dose: 20 mg Octreotide Acetate 1,250 mcg/ (Sodium Chloride) 262.5 mls @ 10 mls/hr IV .Q24H [facility] Last Admin: 03/28/18 14:46 Dose: 10 mls/hr Ceftriaxone Sodium 1 gm/ (Sodium Chloride) 100 mls @ 100 mls/hr IVPB DAILY [facility] PRN Reason: Protocol Stop: 04/01/18 16:00 Last Admin: 03/29/18 09:44 Dose: 100 mls/hr Lactulose (Enulose) 20 gm PO Q1 [facility] Last Admin: 03/29/18 11:36 Dose: Not Given Mirtazapine (Remeron) 45 mg PO HS [facility] Last Admin: 03/28/18 22:05 Dose: 45 mg Morphine Sulfate (Morphine) 2 mg IVP Q6 PRN PRN Reason: Pain, moderate (4-7) Quetiapine Fumarate (Seroquel) 50 mg PO HS [facility] Last Admin: 03/28/18 22:04 Dose: 50 mg Quetiapine Fumarate (Seroquel) 100 mg PO DAILY [facility] Last Admin: 03/29/18 09:48 Dose: 100 mg Ritonavir (Norvir) 100 mg PO HS [facility] Last Admin: 03/28/18 22:03 Dose: 100 mg - Labs Labs: 03/29/18 09:02 03/29/18 09:02 PT 14.7 Seconds (9.8-13.1) H 03/29/18 09:02 INR 1.3 (0.9-1.2) H 03/29/18 09:02 APTT 41.0 Seconds (25.6-37.1) H 03/27/18 12:00 Attending/Attestation - Attestation I have personally seen and examined this patient.: Yes I have fully participated in the care of the patient.: Yes I have reviewed all pertinent clinical information, including history, physical exam and plan: Yes Notes (Text): 03/29/18 14:27 This is a 61 yr old M with history of esophageal varices, portal HTN, Cirrhosis , and HIV on HAART who presents to the ER due to anemia and melena s/p emergent EGD showing prominent x 3 columns of grade 3 esophageal varcies extending from midesophagus to distal s/p 6 rubber band ligation. Continue octreotide for 72 hours, low salt diet, serial cbc and antibiotics for 5 days. Today on exam he had mild encephalopathy for which will start lactulose q 1 hour till one BM - titrate to 2 BM/day. Will discharge on b chauncey due to poor outpatient follow up. Rest of care as per primary team
[2018-03-29 09:11] LABS: BASO % 0.2 % (0.0-2.0); EOS % 0.7 % (0.0-4.0); HEMOGLOBIN 7.9 g/dL (12.0-18.0); LYMPH # 0.3 K/uL (1.0-4.3); LYMPH % 6.3 % (20.0-40.0); MEAN CELL VOLUME 76.6 fl (80.0-94.0); MEAN CORPUSCULAR HEMOGLOBIN 24.8 pg (27.0-31.0); MEAN CORPUSCULAR HGB CONC 32.4 g/dL (33.0-37.0); MEAN PLATELET VOLUME 10.4 fl (7.2-11.7); MONO # 0.2 K/uL (0.0-0.8); MONO % 3.9 % (0.0-10.0); NEUT # 4.7 K/uL (1.8-7.0); NEUT % 88.9 % (50.0-75.0); NRBC % 0.1 % (0.0-0.0); PLATELET COUNT 44 K/uL (130-400); RBC 3.19 Mil/uL (4.40-5.90); RED CELL DISTRIBUTION WIDTH 17.1 % (11.5-14.5); WHITE BLOOD COUNT 5.3 K/uL (4.8-10.8)
[2018-03-29 09:18] LABS: PROTHROMBIN TIME 14.7 Seconds (9.8-13.1)
[2018-03-29 09:19] LABS: INR 1.3 (0.9-1.2)
[2018-03-29 09:40] LABS: ALB/GLOB RATIO 0.5 (1.0-2.1); ALBUMIN 2.4 g/dL (3.5-5.0); ALT/SGPT 31 U/L (21-72); AST/SGOT 35 U/L (17-59); BLOOD UREA NITROGEN 7 mg/dl (9-20); CALCIUM 7.4 mg/dL (8.4-10.2); GFR AFRICAN-AMERICAN > 60; GFR NON-AFRICAN AMERICAN > 60
[2018-03-29] MEDS: Atovaquone 750 mg/5 ml Susp UD PO SCH (09:54)
[2018-03-29 10:09] LABS: BANDS 4 % (0-2); EOSINOPHIL 1 % (0-7); LYMPHOCYTE 4 % (20-50); MONOCYTE 3 % (0-10); NEUTROPHIL 88 % (42-75); TOTAL CELLS COUNTED 100
[2018-03-29 10:11] LABS: ANISOCYTOSIS SLIGHT; HYPOCHROMIC MODERATE; MICROCYTOSIS SLIGHT; PLATELET ESTIMATE DECREASED (NORMAL)
[2018-03-29 10:12] LABS: LARGE PLATELETS PRESENT; OVALOCYTES SLIGHT; SCHISTOCYTES SLIGHT; TEARDROP CELLS SLIGHT
--- NOTE | 2018-03-29 16:35 | CP.PCM.PN ---
Subjective - Date & Time of Evaluation Date of Evaluation: 03/29/18 Time of Evaluation: 16:34 - Subjective Subjective: Pt has been receiving Granix for 2 days and his WBC has gone up to 5.3. The reverse isolation was terminarted, cierra pt will get clear liquids , Since he was a little confused, he has been started on lactulose.Hgb 7.9gm and platelet 44K. Will follow. Objective - Vital Signs/Intake and Output Vital Signs (last 24 hours): Temp Pulse Resp BP Pulse Ox 98.6 F 105 H 16 114/62 93 L 03/29/18 16:06 03/29/18 16:06 03/29/18 16:06 03/29/18 16:06 03/29/18 16:06 - Medications Medications: Current Medications Amitriptyline HCl (Elavil) 10 mg PO Q12 [facility] Last Admin: 03/29/18 09:48 Dose: 10 mg Atovaquone (Mepron) 1,500 mg PO DAILY [facility] PRN Reason: Protocol Last Admin: 03/29/18 09:54 Dose: 1,500 mg Clonazepam (Klonopin) 1 mg PO Q8 PRN PRN Reason: Anxiety Darunavir (Prezista) 800 mg PO HS [facility] PRN Reason: Protocol Last Admin: 03/28/18 22:04 Dose: 800 mg Emtricitabine/Tenofovir (Truvada 200 Mg-300 Mg) 1 tab PO HS [facility] PRN Reason: Protocol Last Admin: 03/28/18 22:04 Dose: 1 tab Escitalopram Oxalate (Lexapro) 20 mg PO HS [facility] Last Admin: 03/28/18 22:04 Dose: 20 mg Ceftriaxone Sodium 1 gm/ (Sodium Chloride) 100 mls @ 100 mls/hr IVPB DAILY [facility] PRN Reason: Protocol Stop: 04/01/18 16:00 Last Admin: 03/29/18 09:44 Dose: 100 mls/hr Octreotide Acetate 1,250 mcg/ (Sodium Chloride) 252.5 mls @ 10 mls/hr IV .Q24H [facility] PRN Reason: Protocol Last Admin: 03/29/18 15:52 Dose: 10 mls/hr Ibuprofen (Motrin Oral Susp) 200 mg PO Q8 [facility] Lactulose (Enulose) 20 gm PO Q1 [facility] Last Admin: 03/29/18 15:15 Dose: Not Given Mirtazapine (Remeron) 45 mg PO HS [facility] Last Admin: 03/28/18 22:05 Dose: 45 mg Morphine Sulfate (Morphine) 2 mg IVP Q6 PRN PRN Reason: Pain, moderate (4-7) Quetiapine Fumarate (Seroquel) 50 mg PO HS [facility] Last Admin: 03/28/18 22:04 Dose: 50 mg Quetiapine Fumarate (Seroquel) 100 mg PO DAILY [facility] Last Admin: 03/29/18 09:48 Dose: 100 mg Ritonavir (Norvir) 100 mg PO HS [facility] Last Admin: 03/28/18 22:03 Dose: 100 mg - Labs Labs: 03/29/18 09:02 03/29/18 09:02 PT 14.7 Seconds (9.8-13.1) H 03/29/18 09:02 INR 1.3 (0.9-1.2) H 03/29/18 09:02 APTT 41.0 Seconds (25.6-37.1) H 03/27/18 12:00
[2018-03-29] MEDS: Emtricitabine-Tenofovir 200 mg-300 mg Tab PO SCH (21:22)
[2018-03-30 04:41] VITALS: RESP 18
[2018-03-30 05:42] LABS: BASO % 0.2 % (0.0-2.0); EOS # 0.1 K/uL (0.0-0.7); EOS % 1.7 % (0.0-4.0); LYMPH # 0.4 K/uL (1.0-4.3); LYMPH % 8.6 % (20.0-40.0); MEAN CELL VOLUME 77.3 fl (80.0-94.0); MEAN CORPUSCULAR HEMOGLOBIN 24.2 pg (27.0-31.0); MEAN CORPUSCULAR HGB CONC 31.3 g/dL (33.0-37.0); MEAN PLATELET VOLUME 10.9 fl (7.2-11.7); MONO # 0.2 K/uL (0.0-0.8); MONO % 5.1 % (0.0-10.0); NEUT # 3.8 K/uL (1.8-7.0); NEUT % 84.4 % (50.0-75.0); NRBC % 0.1 % (0.0-0.0); RBC 3.3 Mil/uL (4.40-5.90); RED CELL DISTRIBUTION WIDTH 17.8 % (11.5-14.5); WHITE BLOOD COUNT 4.5 K/uL (4.8-10.8)
[2018-03-30 06:31] LABS: ALB/GLOB RATIO 0.5 (1.0-2.1); ALBUMIN 2.3 g/dL (3.5-5.0); ALT/SGPT 32 U/L (21-72); AST/SGOT 29 U/L (17-59); BLOOD UREA NITROGEN 10 mg/dl (9-20); CALCIUM 7.7 mg/dL (8.4-10.2); GFR AFRICAN-AMERICAN > 60; GFR NON-AFRICAN AMERICAN > 60
--- NOTE | 2018-03-30 08:43 | CP.PCM.PN ---
Subjective - Date & Time of Evaluation Date of Evaluation: 03/30/18 Time of Evaluation: 08:39 - Subjective Subjective: Pt's cbc is stable at this time. He is going to be discharged todayand follow up with [facility] prize [facility] at [facility]. Objective - Vital Signs/Intake and Output Vital Signs (last 24 hours): Temp Pulse Resp BP Pulse Ox 98.6 F 96 H 18 127/80 93 L 03/30/18 08:00 03/30/18 08:00 03/30/18 08:00 03/30/18 08:00 03/30/18 08:00 - Medications Medications: Current Medications Amitriptyline HCl (Elavil) 10 mg PO Q12 [facility] Last Admin: 03/29/18 21:22 Dose: 10 mg Atovaquone (Mepron) 1,500 mg PO DAILY [facility] PRN Reason: Protocol Last Admin: 03/29/18 09:54 Dose: 1,500 mg Calcium Carbonate (Oscal) 500 mg PO DAILY [facility] Clonazepam (Klonopin) 1 mg PO Q8 PRN PRN Reason: Anxiety Darunavir (Prezista) 800 mg PO HS [facility] PRN Reason: Protocol Last Admin: 03/29/18 21:21 Dose: 800 mg Emtricitabine/Tenofovir (Truvada 200 Mg-300 Mg) 1 tab PO HS [facility] PRN Reason: Protocol Last Admin: 03/29/18 21:22 Dose: 1 tab Escitalopram Oxalate (Lexapro) 20 mg PO HS [facility] Last Admin: 03/29/18 21:22 Dose: 20 mg Ceftriaxone Sodium 1 gm/ (Sodium Chloride) 100 mls @ 100 mls/hr IVPB DAILY [facility] PRN Reason: Protocol Stop: 04/01/18 16:00 Last Admin: 03/29/18 09:44 Dose: 100 mls/hr Ibuprofen (Motrin Oral Susp) 200 mg PO Q8 [facility] Last Admin: 03/30/18 02:01 Dose: Not Given Lactulose (Enulose) 20 gm PO Q1 [facility] Last Admin: 03/30/18 06:42 Dose: Not Given Mirtazapine (Remeron) 45 mg PO HS [facility] Last Admin: 03/29/18 21:21 Dose: 45 mg Morphine Sulfate (Morphine) 2 mg IVP Q6 PRN PRN Reason: Pain, moderate (4-7) Quetiapine Fumarate (Seroquel) 50 mg PO HS [facility] Last Admin: 03/29/18 21:22 Dose: 50 mg Quetiapine Fumarate (Seroquel) 100 mg PO DAILY [facility] Last Admin: 03/29/18 09:48 Dose: 100 mg Ritonavir (Norvir) 100 mg PO HS [facility] Last Admin: 03/29/18 21:22 Dose: 100 mg - Labs Labs: 03/30/18 04:55 03/30/18 04:55 PT 14.7 Seconds (9.8-13.1) H 03/29/18 09:02 INR 1.3 (0.9-1.2) H 03/29/18 09:02 APTT 41.0 Seconds (25.6-37.1) H 03/27/18 12:00
--- NOTE | 2018-03-30 09:00 | CP.PCM.PN ---
<Tawana Elias - Last Filed: 03/30/18 11:26> Subjective - Date & Time of Evaluation Date of Evaluation: 03/30/18 Time of Evaluation: 07:30 - Subjective Subjective: PGY4 GI Follow-up Pt seen and examined bedside x2 BM yesterday denies nay abd pain alert oriented x3 no overnight events ROS: 12 point ROS conducted neg other than above Objective - Vital Signs/Intake and Output Vital Signs (last 24 hours): Temp Pulse Resp BP Pulse Ox 98.6 F 96 H 18 127/80 93 L 03/30/18 08:00 03/30/18 08:00 03/30/18 08:00 03/30/18 08:00 03/30/18 08:00 - Medications Medications: Current Medications Amitriptyline HCl (Elavil) 10 mg PO Q12 [facility] Last Admin: 03/29/18 21:22 Dose: 10 mg Atovaquone (Mepron) 1,500 mg PO DAILY [facility] PRN Reason: Protocol Last Admin: 03/29/18 09:54 Dose: 1,500 mg Calcium Carbonate (Oscal) 500 mg PO DAILY [facility] Clonazepam (Klonopin) 1 mg PO Q8 PRN PRN Reason: Anxiety Darunavir (Prezista) 800 mg PO HS [facility] PRN Reason: Protocol Last Admin: 03/29/18 21:21 Dose: 800 mg Emtricitabine/Tenofovir (Truvada 200 Mg-300 Mg) 1 tab PO HS [facility] PRN Reason: Protocol Last Admin: 03/29/18 21:22 Dose: 1 tab Escitalopram Oxalate (Lexapro) 20 mg PO HS [facility] Last Admin: 03/29/18 21:22 Dose: 20 mg Ceftriaxone Sodium 1 gm/ (Sodium Chloride) 100 mls @ 100 mls/hr IVPB DAILY [facility] PRN Reason: Protocol Stop: 04/01/18 16:00 Last Admin: 03/29/18 09:44 Dose: 100 mls/hr Ibuprofen (Motrin Oral Susp) 200 mg PO Q8 [facility] Last Admin: 03/30/18 02:01 Dose: Not Given Lactulose (Enulose) 20 gm PO Q1 [facility] Last Admin: 03/30/18 06:42 Dose: Not Given Mirtazapine (Remeron) 45 mg PO HS [facility] Last Admin: 03/29/18 21:21 Dose: 45 mg Morphine Sulfate (Morphine) 2 mg IVP Q6 PRN PRN Reason: Pain, moderate (4-7) Propranolol HCl (Inderal) 20 mg PO BID [facility] Quetiapine Fumarate (Seroquel) 50 mg PO HS [facility] Last Admin: 03/29/18 21:22 Dose: 50 mg Quetiapine Fumarate (Seroquel) 100 mg PO DAILY [facility] Last Admin: 03/29/18 09:48 Dose: 100 mg Ritonavir (Norvir) 100 mg PO HS [facility] Last Admin: 03/29/18 21:22 Dose: 100 mg - Labs Labs: 03/30/18 04:55 03/30/18 04:55 PT 14.7 Seconds (9.8-13.1) H 03/29/18 09:02 INR 1.3 (0.9-1.2) H 03/29/18 09:02 APTT 41.0 Seconds (25.6-37.1) H 03/27/18 12:00 - Constitutional Appears: Well, No Acute Distress - Head Exam Head Exam: ATRAUMATIC, NORMOCEPHALIC - Eye Exam Eye Exam: Normal appearance - ENT Exam ENT Exam: Mucous Membranes Moist, Normal Exam - Neck Exam Neck Exam: Normal Inspection - Respiratory Exam Respiratory Exam: Clear to Ausculation Bilateral, NORMAL BREATHING PATTERN. absent: Prolonged Expiratory Phase, Rales, Rhonchi, Wheezes, Respiratory Distress - Cardiovascular Exam Cardiovascular Exam: REGULAR RHYTHM, +S1, +S2 - GI/Abdominal Exam GI & Abdominal Exam: Soft, Normal Bowel Sounds. absent: Distended, Firm, Guarding, Rigid, Tenderness, Organomegaly, Rebound - Extremities Exam Extremities Exam: absent: Joint Swelling, Pedal Edema - Back Exam Back Exam: NORMAL INSPECTION - Neurological Exam Neurological Exam: Alert, Awake, Oriented x3 - Psychiatric Exam Psychiatric exam: Normal Affect, Normal Mood - Skin Skin Exam: Dry, Intact, Normal Color, Warm Assessment and Plan - Assessment and Plan (Free Text) Assessment: Sandip Akhtar is a 61M w/ hx of esophageal varicies, portal HTN, Cirrhosis, and HIV on HAART who presents to the ER due anemia. s/p EGD POD #2. prominent x3 columns of grade 3 esophageal varcies extending from midesophagus to distal s/p 6 rubber band ligation Grade 3 varices, s/p 6 rubber band ligation Microcytic Anemia 2/2 above Acute on Chronic Thrombocytopenia likely 2/2 above and underlying cirrhosis Cryptogenic Cirrhosis Portal HTN 2/2 cirrhosis Hepatic encephalopathy Plan: -can discontinue octreotide -s/p 2 unit PRBC -hgb > 7, monitor daily -total 5 days of abx, can discharge cipro flagyl for 2 more days -keep hgb >7 -advance to soft diet -start propanolol 20mg BID -f/u at GI clinic in [place] -reviewed hematology cx note, unlikely pt has MDS -lactulose BID for 2 BM daily -rest of care as per primary team D/W Dr. Landers <Liz Landers - Last Filed: 03/30/18 13:23> Objective - Vital Signs/Intake and Output Vital Signs (last 24 hours): Temp Pulse Resp BP Pulse Ox 98.5 F 87 18 128/77 94 L 03/30/18 10:56 03/30/18 10:56 03/30/18 10:56 03/30/18 10:56 03/30/18 10:56 - Medications Medications: Current Medications Amitriptyline HCl (Elavil) 10 mg PO Q12 [facility] Last Admin: 03/30/18 09:46 Dose: 10 mg Calcium Carbonate (Oscal) 500 mg PO DAILY [facility] Last Admin: 03/30/18 09:47 Dose: 500 mg Clonazepam (Klonopin) 1 mg PO Q8 PRN PRN Reason: Anxiety Darunavir (Prezista) 800 mg PO HS [facility] PRN Reason: Protocol Last Admin: 03/29/18 21:21 Dose: 800 mg Emtricitabine/Tenofovir (Truvada 200 Mg-300 Mg) 1 tab PO HS [facility] PRN Reason: Protocol Last Admin: 03/29/18 21:22 Dose: 1 tab Escitalopram Oxalate (Lexapro) 20 mg PO HS [facility] Last Admin: 03/29/18 21:22 Dose: 20 mg Ceftriaxone Sodium 1 gm/ (Sodium Chloride) 100 mls @ 100 mls/hr IVPB DAILY [facility] PRN Reason: Protocol Stop: 04/01/18 16:00 Last Admin: 03/30/18 09:45 Dose: 100 mls/hr Ibuprofen (Motrin Oral Susp) 200 mg PO Q8 [facility] Last Admin: 03/30/18 09:47 Dose: 200 mg Lactulose (Enulose) 20 gm PO Q1 [facility] Last Admin: 03/30/18 10:50 Dose: Not Given Mirtazapine (Remeron) 45 mg PO HS [facility] Last Admin: 03/29/18 21:21 Dose: 45 mg Morphine Sulfate (Morphine) 2 mg IVP Q6 PRN PRN Reason: Pain, moderate (4-7) Propranolol HCl (Inderal) 20 mg PO BID [facility] Last Admin: 03/30/18 10:55 Dose: 20 mg Quetiapine Fumarate (Seroquel) 50 mg PO HS [facility] Last Admin: 03/29/18 21:22 Dose: 50 mg Quetiapine Fumarate (Seroquel) 100 mg PO DAILY [facility] Last Admin: 03/30/18 09:46 Dose: 100 mg Ritonavir (Norvir) 100 mg PO HS [facility] Last Admin: 03/29/18 21:22 Dose: 100 mg - Labs Labs: 03/30/18 04:55 03/30/18 04:55 PT 14.7 Seconds (9.8-13.1) H 03/29/18 09:02 INR 1.3 (0.9-1.2) H 03/29/18 09:02 APTT 41.0 Seconds (25.6-37.1) H 03/27/18 12:00 Attending/Attestation - Attestation I have personally seen and examined this patient.: Yes I have fully participated in the care of the patient.: Yes I have reviewed all pertinent clinical information, including history, physical exam and plan: Yes Notes (Text): 03/30/18 13:22 This is a 61 yr old M with history of esophageal varices, portal HTN, Cirrhosis , and HIV on HAART who presents to the ER due to anemia and melena s/p emergent EGD showing prominent x 3 columns of grade 3 esophageal varcies extending from midesophagus to distal s/p 6 rubber band ligation. Completed octreotide for 72 hours. low salt diet. Will discharge on b chauncey due to poor outpatient follow up and antibiotics to complete 10 day course. Rest of care as per primary team. Thank you for letting us participate in the care of your patient
--- NOTE | 2018-03-30 09:34 | CP.PCM.DIS ---
Provider - Provider Date of Admission: 03/27/18 11:57 Attending physician: Nicolette Chang MD Consults: GI: Dr. Landers Hem/Onc: Dr. Nael العراقي Time Spent in preparation of Discharge (in minutes): 30 Hospital Course - Lab Results Lab Results: Micro Results 03/27/18 12:30 Blood-Venous Blood Culture - Preliminary NO GROWTH AFTER 48 HOURS 03/27/18 18:30 Blood-Venous Blood Culture - Preliminary NO GROWTH AFTER 48 HOURS 03/28/18 01:00 Urine Urine Culture - Final No Growth (<1,000 CFU/ML) Most Recent Lab Values WBC 4.5 K/uL (4.8-10.8) L 03/30/18 04:55 RBC 3.30 Mil/uL (4.40-5.90) L 03/30/18 04:55 Hgb 8.0 g/dL (12.0-18.0) L 03/30/18 04:55 Hct 25.5 % (35.0-51.0) L 03/30/18 04:55 MCV 77.3 fl (80.0-94.0) L 03/30/18 04:55 MCH 24.2 pg (27.0-31.0) L 03/30/18 04:55 MCHC 31.3 g/dL (33.0-37.0) L 03/30/18 04:55 RDW 17.8 % (11.5-14.5) H 03/30/18 04:55 Plt Count 42 K/uL (130-400) L 03/30/18 04:55 MPV 10.9 fl (7.2-11.7) 03/30/18 04:55 Neut % (Auto) 84.4 % (50.0-75.0) H 03/30/18 04:55 Lymph % (Auto) 8.6 % (20.0-40.0) L 03/30/18 04:55 Terry % (Auto) 5.1 % (0.0-10.0) 03/30/18 04:55 Eos % (Auto) 1.7 % (0.0-4.0) 03/30/18 04:55 Baso % (Auto) 0.2 % (0.0-2.0) 03/30/18 04:55 Neut # (Auto) 3.8 K/uL (1.8-7.0) 03/30/18 04:55 Lymph # (Auto) 0.4 K/uL (1.0-4.3) L 03/30/18 04:55 Terry # (Auto) 0.2 K/uL (0.0-0.8) 03/30/18 04:55 Eos # (Auto) 0.1 K/uL (0.0-0.7) 03/30/18 04:55 Baso # (Auto) 0.0 K/uL (0.0-0.2) 03/30/18 04:55 Neutrophils % (Manual) 88 % (42-75) H 03/29/18 09:02 Band Neutrophils % 4 % (0-2) H 03/29/18 09:02 Lymphocytes % (Manual) 4 % (20-50) L 03/29/18 09:02 Monocytes % (Manual) 3 % (0-10) 03/29/18 09:02 Eosinophils % (Manual) 1 % (0-7) 03/29/18 09:02 Platelet Estimate Decreased (NORMAL) L 03/29/18 09:02 Large Platelets Present 03/29/18 09:02 Hypochromasia (manual) Moderate 03/29/18 09:02 Anisocytosis (manual) Slight 03/29/18 09:02 Microcytosis (manual) Slight 03/29/18 09:02 Tear Drop Cells Slight 03/29/18 09:02 Ovalocytes Slight 03/29/18 09:02 Schistocytes Slight 03/29/18 09:02 PT 14.7 Seconds (9.8-13.1) H 03/29/18 09:02 INR 1.3 (0.9-1.2) H 03/29/18 09:02 APTT 41.0 Seconds (25.6-37.1) H 03/27/18 12:00 Sodium 142 mmol/l (132-148) 03/30/18 04:55 Potassium 3.8 MMOL/L (3.6-5.0) 03/30/18 04:55 Chloride 107 mmol/L (98-107) 03/30/18 04:55 Carbon Dioxide 29 mmol/L (22-30) 03/30/18 04:55 Anion Gap 10 (10-20) 03/30/18 04:55 BUN 10 mg/dl (9-20) 03/30/18 04:55 Creatinine 0.9 mg/dl (0.8-1.5) 03/30/18 04:55 Est GFR ( Amer) > 60 03/30/18 04:55 Est GFR (Non-Af Amer) > 60 03/30/18 04:55 Random Glucose 98 mg/dL (75-110) 03/30/18 04:55 Calcium 7.7 mg/dL (8.4-10.2) L 03/30/18 04:55 Total Bilirubin 1.6 mg/dl (0.2-1.3) H 03/30/18 04:55 AST 29 U/L (17-59) 03/30/18 04:55 ALT 32 U/L (21-72) 03/30/18 04:55 Alkaline Phosphatase 96 U/L (38-126) 03/30/18 04:55 Total Protein 6.6 G/DL (6.3-8.2) 03/30/18 04:55 Albumin 2.3 g/dL (3.5-5.0) L 03/30/18 04:55 Globulin 4.3 gm/dL (2.2-3.9) H 03/30/18 04:55 Albumin/Globulin Ratio 0.5 (1.0-2.1) L 03/30/18 04:55 Procalcitonin < 0.05 NG/ML (0.19-0.49) L 03/27/18 19:05 Urine Color Yellow (YELLOW) 03/28/18 01:00 Urine Clarity Clear (Clear) 03/28/18 01:00 Urine pH 6.0 (5.0-8.0) 03/28/18 01:00 Ur Specific [place] 1.014 (1.003-1.030) 03/28/18 01:00 Urine Protein Negative mg/dL (NEGATIVE) 03/28/18 01:00 Urine Glucose (UA) Neg mg/dL (Normal) 03/28/18 01:00 Urine Ketones Negative mg/dL (NEGATIVE) 03/28/18 01:00 Urine Blood Negative (NEGATIVE) 03/28/18 01:00 Urine Nitrate Negative (NEGATIVE) 03/28/18 01:00 Urine Bilirubin Negative (NEGATIVE) 03/28/18 01:00 Urine Urobilinogen 0.2-1.0 mg/dL (0.2-1.0) 03/28/18 01:00 Ur Leukocyte Esterase Neg [place]/uL (Negative) 03/28/18 01:00 Urine RBC (Auto) 1 /hpf (0-3) 03/28/18 01:00 Stool Occult Blood Positive (NEGATIVE) H 03/29/18 11:49 Urine Opiates Screen Negative (NEGATIVE) 03/28/18 01:00 Urine Methadone Screen Negative (NEGATIVE) 03/28/18 01:00 Ur Barbiturates Screen Negative (NEGATIVE) 03/28/18 01:00 Ur Phencyclidine Scrn Negative (NEGATIVE) 03/28/18 01:00 Ur Amphetamines Screen Negative (NEGATIVE) 03/28/18 01:00 U Benzodiazepines Scrn Negative (NEGATIVE) 03/28/18 01:00 U Oth Cocaine Metabols Negative (NEGATIVE) 03/28/18 01:00 U Cannabinoids Screen Negative (NEGATIVE) 03/28/18 01:00 Alcohol, Quantitative < 10 mg/dl (0-10) 03/27/18 19:05 HIV-1 RNA Qnt (RT-PCR) <1.30 not detected (Not Detected) 03/28/18 04:20 Blood Type O POSITIVE 03/27/18 12:00 Antibody Screen Negative 03/27/18 12:00 Crossmatch See Detail 03/27/18 12:00 BBK History Checked Patient has bt 03/27/18 12:00 - Hospital Course Hospital Course: 62 YO male with PMHx of Cryptogenic cirrhosis, pancytopenia, HIV, arthritis, alcohol abuse/esophageal varices is admitted to [facility] for hematochezia and pancytopenia. Upon admission, pt was taken to endoscopy, s/p 6x band ligation, s /p octreotide (x72 hrs), 3 days of Rocephin for SBP prophylaxis, s/p 2 units or PRBC and 1x Granix. Pt feeling better, okay to be d/c per GI and hem/on. Per GI will d/c pt home with 2 more days of SBP prophylaxis (metro and levaquin) and propranalol. Will d/c home with follow up with Dr. Roth in [place] [employer] was contacted, will call pt for apt and to please provide referral for Dr. Landers and Dr. Nayak. Continue Meds: Metronidazole 500mg PO BID x 2 days Levoflaxacin 500 PO daily Propranolol 20mg PO BID + Amitriptyline HCl (Elavil) 10 mg PO Q12 JESS Atovaquone (Mepron) 1,500 mg PO DAILY JESS Clonazepam (Klonopin) 1 mg PO Q8 PRN Darunavir (Prezista) 800 mg PO HS JESS Emtricitabine/Tenofovir (Truvada 200 Mg-300 Mg) 1 tab PO HS JESS Escitalopram Oxalate (Lexapro) 20 mg PO HS JESS Lactulose (Enulose) 20 gm PO BID PRN Mirtazapine (Remeron) 45 mg PO HS JESS Quetiapine Fumarate (Seroquel) 50 mg PO HS JESS Quetiapine Fumarate (Seroquel) 100 mg PO DAILY JESS Ritonavir (Norvir) 100 mg PO HS JESS Discharge Exam - Head Exam Head Exam: ATRAUMATIC, NORMOCEPHALIC - Eye Exam Eye Exam: EOMI, Normal appearance - ENT Exam ENT Exam: Mucous Membranes Moist - Respiratory Exam Respiratory Exam: Clear to PA & Lateral, NORMAL BREATHING PATTERN. absent: Wheezes - Cardiovascular Exam Cardiovascular Exam: REGULAR RHYTHM, +S1, +S2 - GI/Abdominal Exam GI & Abdominal Exam: Hyperactive Bowel Sounds, Normal Bowel Sounds. absent: Distended, Soft Additional comments: No fluid wave - Extremities Exam Extremities exam: normal inspection - Back Exam Back exam: NORMAL INSPECTION - Neurological Exam Neurological exam: Alert, CN II-XII Intact, Oriented x3 - Psychiatric Exam Psychiatric exam: Normal Affect, Normal Mood - Skin Skin Exam: Dry, Intact, Normal Color, Warm Discharge Plan - Discharge Medications Prescriptions: Calcium Carbonate [Oscal] 500 mg PO DAILY #30 tab Levofloxacin [Levaquin] 500 mg PO DAILY #3 tablet Levofloxacin [Levaquin] 500 mg PO DAILY 3 Days tablet Metronidazole 500 mg PO BID #6 tablet Propranolol [Inderal] 20 mg PO BID #60 tab - Follow Up Plan Condition: FAIR Disposition: HOME/ ROUTINE Patient education suggested?: Yes Instructions: Gastrointestinal Bleeding (DC), Bone Marrow Failure in Children ( DC), Bone Marrow Failure in Children (GEN) Additional Instructions: Needs appt for [facility] Dr. Ira Pierre for Rob Nayak [facility] Meds transmitted to pharmacy stable to [facility] today Referrals: Liz Landers MD [Medical Doctor] - Daniak Nyaak MD [Staff Provider] - Sanya Roth MD [Family Provider] -
[2018-03-30] MEDS: Atovaquone 750 mg/5 ml Susp UD PO SCH (09:46)
[2018-03-30 10:56] VITALS: BP 128/77; PULSE 87
[2018-03-30 10:57] VITALS: TEMP 98.5; O2SAT 94
[2018-03-30 11:41] LABS: % CD4 (T HELPER CELL) 34 Percent (30-61); % CD8 (SUPPRESSOR T CELL) 21 Percent (12-42); ABSOLUTE CD4 CELLS 88 Cells/mcL (490-1740); ABSOLUTE CD8 CELLS 53 Cells/mcL (180-1170); ABSOLUTE LYMPHOCYTES 258 Cells/mcL (850-3900); HELPER/SUPPRESSOR RATIO 1.65 Ratio (0.86-5.00)
[2018-04-02 14:44] LABS: PARVOVIRUS B19 AB (IGM) 0.3 (<0.9)
== END 2018-03-30 15:15 | disposition home or self-care (01) | DRG 368 ==
LOC: H.ER 10:02 → H.ERHOLD 11:57 → H.TEL 14:55
PROVIDERS: ADMIT Family Medicine Geriatric Medicine; ATTEND Family Medicine Geriatric Medicine
PROC: 30233N1 Transfusion of Nonautologous Red Blood Cells into Peripheral Vein, Percutaneous Approach (ICD-10-PCS; 2018-03-27)
PROC: 6A550Z2 Pheresis of Platelets, Single (ICD-10-PCS; 2018-03-27)
PROC: 06L38CZ Occlusion of Esophageal Vein with Extraluminal Device, Via Natural or Artificial Opening Endoscopic (ICD-10-PCS; principal; 2018-03-27 16:15)
DX: I85.01 Esophageal varices with bleeding (principal); B20 Human immunodeficiency virus [HIV] disease; K76.6 Portal hypertension; K72.90 Hepatic failure, unspecified without coma; K70.30 Alcoholic cirrhosis of liver without ascites; F10.10 Alcohol abuse, uncomplicated; D73.1 Hypersplenism; D50.0 Iron deficiency anemia secondary to blood loss (chronic); D69.59 Other secondary thrombocytopenia; D46.Z Other myelodysplastic syndromes; I10 Essential (primary) hypertension; M06.9 Rheumatoid arthritis, unspecified

== ENCOUNTER 2019-01-17 10:38 | Inpatient (IN) | payer MEDICARE ==
[2019-01-17 10:38] VITALS: BMI 28.2
--- NOTE | 2019-01-17 11:45 | ED PDOC ---
HPI: General Adult Time Seen by Provider: 01/17/19 11:13 Chief Complaint (Nursing): Abnormal Labs Chief Complaint (Provider): abnormal labs History Per: Patient History/Exam Limitations: no limitations Onset/Duration Of Symptoms: Hrs Current Symptoms Are (Timing): Still Present Additional Complaint(s): Sandip Akhtar is a 63 year old male, with a past medical history of HIV positive, who presents to the emergency department for a blood transfusion. Patient states he had blood work done yesterday, he was found to have a low hemoglobin and was advised to come to the ER for a blood transfusion. Patient denies any bleeding, chest pain, shortness of breath, headache, dizziness, nausea, vomit or other medical complaints. PMD: Dr. Holley Past Medical History Reviewed: Historical Data, Nursing Documentation, Vital Signs Vital Signs: Last Vital Signs Temp 98.4 F 01/17/19 11:04 Pulse 115 H 01/17/19 11:04 Resp 22 01/17/19 11:04 BP 137/89 01/17/19 11:04 Pulse Ox 99 01/17/19 11:04 - Medical History PMH: Arthritis, Depression, HIV, HTN Denies: Chronic Kidney Disease - Surgical History Surgical History: Endoscopy - Family History Family History: States: Unknown Family Hx - Social History Alcohol: Social Drugs: Denies - Home Medications Home Medications: Ambulatory Orders Medication Instructions Recorded Clonazepam [Klonopin] 1 mg PO Q8 PRN 06/06/17 Emtricitabine/Tenofovir Diso 1 tab PO HS 06/06/17 [Truvada 200 MG-300 MG] Ritonavir [Norvir] 100 mg PO HS 06/06/17 Amitriptyline [Elavil] 10 mg PO Q12 12/08/17 Darunavir [Prezista] 800 mg PO HS 12/08/17 Escitalopram [Lexapro] 20 mg PO HS 12/08/17 Ferrous Sulfate [Feosol] 325 mg PO Q12 12/08/17 Quetiapine Fumarate [Seroquel] 50 mg PO HS 12/08/17 SulfaSALAzine [Azulfidine] 1,500 mg PO Q12 12/08/17 Mirtazapine 45 mg PO HS 03/27/18 Calcium Carbonate [Oscal] 500 mg PO DAILY #30 tab 03/30/18 Levofloxacin [Levaquin] 500 mg PO DAILY #3 tablet 03/30/18 Levofloxacin [Levaquin] 500 mg PO DAILY 3 Days tablet 03/30/18 Metronidazole 500 mg PO BID #6 tablet 03/30/18 Propranolol [Inderal] 20 mg PO BID #60 tab 03/30/18 Ritonavir [Norvir] 100 mg PO HS tab 03/30/18 - Allergies Allergies/Adverse Reactions: Allergies Allergy/AdvReac Type Severity Reaction Status Date / Time No Known Allergies Allergy Verified 01/17/19 11:03 Review of Systems ROS Statement: Except As Marked, All Systems Reviewed And Found Negative Cardiovascular: Negative for: Chest Pain Respiratory: Negative for: Shortness of Breath Gastrointestinal: Negative for: Nausea, Vomiting Neurological: Negative for: Headache, Dizziness Physical Exam - Reviewed Nursing Documentation Reviewed: Yes Vital Signs Reviewed: Yes - Physical Exam Appears: Positive for: No Acute Distress Head Exam: Positive for: ATRAUMATIC, NORMAL INSPECTION Skin: Positive for: Normal Color, Warm, Dry Eye Exam: Positive for: Normal appearance, EOMI, PERRL Neck: Positive for: Normal, Painless ROM Cardiovascular/Chest: Positive for: Regular Rate, Rhythm. Negative for: Murmur Respiratory: Positive for: Normal Breath Sounds. Negative for: Respiratory Distress Gastrointestinal/Abdominal: Positive for: Normal Exam, Soft. Negative for: Tenderness Back: Positive for: Normal Inspection. Negative for: L CVA Tenderness, R CVA Tenderness, Vertebral Tenderness Extremity: Positive for: Normal ROM (upper and lower extremities). Negative for: Tenderness, Deformity, Swelling Neurological/Psych: Positive for: Awake, Alert, Normal Tone, Oriented. Negative for: Motor/Sensory Deficits - Laboratory Results Result Diagrams: 01/17/19 11:20 01/17/19 11:20 - ECG O2 Sat by Pulse Oximetry: 99 (RA) Pulse Ox Interpretation: Normal Medical Decision Making Medical Decision Making: Time: 11:13 Initial Impression: Blood transfusion Initial Plan: --ABO/RH Type --Type and screen --EKG --CMP --CBC w/ differential --PTT --PT --Chest two views (PA/LAT) [RAD] --Occult blood stool --Urinalysis --Reevaluation 12:[address] Rob Nayak, admit, transfuse PRBCs. --- Scribe Attestation: Documented by Beau Gonsales, acting as a scribe Kelley German MD Provider Scribe Attestation: All medical record entries made by the Scribe were at my direction and personally dictated by me. I have reviewed the chart and agree that the record accurately reflects my personal performance of the history, physical exam, medical decision making, and the department course for this patient. I have also personally directed, reviewed, and agree with the discharge instructions and disposition. Disposition - Clinical Impression Clinical Impression: Pancytopenia - Patient ED Disposition Is Patient to be Admitted: Yes - Disposition Disposition Time: 12:10 Condition: STABLE Forms: [employer] (Estonian) - Pt Status Changed To: Hospital Disposition Of: Inpatient - Admit Certification Admit to Inpatient:: After my assessment, the patient will require hospitalizat ion for at least two midnights. This is because of the severity of symptoms shown, intensity of services needed, and/or the medical risk in this patient being treated as an outpatient. - POA Present On Arrival: None
[2019-01-17 11:48] LABS: ALB/GLOB RATIO 0.7 (1.0-2.1); ALBUMIN 3.2 g/dL (3.5-5.0); ALT/SGPT 33 U/L (21-72); AST/SGOT 27 U/L (17-59); BLOOD UREA NITROGEN 14 mg/dl (9-20); CALCIUM 8.5 mg/dL (8.4-10.2); GFR NON-AFRICAN AMERICAN > 60; INR 1.1
[2019-01-17 11:49] LABS: PARTIAL THROMBOPLASTIN TIME 20.5 Seconds (25.6-37.1)
[2019-01-17 11:52] LABS: BASO % 0.6 % (0.0-2.0); EOS % 1.6 % (0.0-4.0); LYMPH # 0.4 K/uL (1.0-4.3); LYMPH % 34.3 % (20.0-40.0); MEAN CELL VOLUME 61.2 fl (80.0-94.0); MEAN CORPUSCULAR HEMOGLOBIN 17.3 pg (27.0-31.0); MEAN CORPUSCULAR HGB CONC 28.3 g/dL (33.0-37.0); MEAN PLATELET VOLUME 10.1 fl (7.2-11.7); MONO # 0.2 K/uL (0.0-0.8); MONO % 15.3 % (0.0-10.0); NEUT # 0.5 K/uL (1.8-7.0); NEUT % 48.2 % (50.0-75.0); NRBC % 0.4 % (0.0-0.0); RBC 3.44 Mil/uL (4.40-5.90); RED CELL DISTRIBUTION WIDTH 18.7 % (11.5-14.5)
[2019-01-17 11:55] LABS: WHITE BLOOD COUNT 1.1 K/uL (4.8-10.8)
[2019-01-17 11:56] LABS: HEMOGLOBIN 5.9 g/dL (12.0-18.0)
--- NOTE | 2019-01-17 11:59 | RAD ---
Date of service: 01/17/2019 HISTORY: Anemia COMPARISON: 03/28/2018. TECHNIQUE: Chest PA and lateral FINDINGS: LINES AND TUBES: None. LUNG AND PLEURA: The lungs are well inflated and clear. There is discoid atelectasis/scarring in the lower lobes. No pleural effusion or pneumothorax. HEART AND MEDIASTINUM: The heart is not enlarged. No aortic atherosclerotic calcifications present. The hilar and mediastinal contours are within normal limits. SKELETAL STRUCTURES: The bony structures are within normal limits for the patient's age. VISUALIZED UPPER ABDOMEN: Normal. OTHER FINDINGS: None. IMPRESSION: No active pulmonary disease.
--- NOTE | 2019-01-17 15:28 | CP.PCM.CON ---
<Luz Harper - Last Filed: 01/17/19 15:56> History of Present Illness - History of Present Illness History of Present Illness: 63-year-old patient with PMH of pancytopenia, cryptogenic cirrhosis, rheumatoid arthritis on chronic prednisone and HIV (on Truvada) was sent to [facility] ED from PCP (DR Holley) and Dr Nayak for Hg 6.1. He states that he "always has low blood count, feels fine" and that he would not have come to ED if Dr Nayak did not advise him to do so. At presentation he denies any change in vision, weakness, palpitations, chest pain, dizziness, lethargy, blood in stool or urine, dysuria, nausea, vomiting, fever and recent illness. PMD: Dr Holley, Dr Nayak Meds: PredniSONE 5 MG Tablet 1 tablet Orally Once a day, Sulfasalazine 500 MG Tablet 2 tablets Orally bid, Cymbalta 60 MG Capsule Delayed Release Particles 1 capsule Orally Once a day, Nadolol 40 MG Tablet 1 tablet Orally Once a day, Clonazepam 1 MG 1 tablet Orally Three a day, Seroquel 150 Tablet 1 tablet at bedtime Orally Once a day, Remeron 45 MG Tablet 1 tablet before bedtime in the evening Orally Once a day, Lexapro 20 MG Tablet 0.5 tablet Orally Once a day, Tivicay 50 MG Tablet 1 tablet Orally daily, Descovy 200-25 MG Tablet as directed Orally daily, Calcium Citrate + D3 250-200 MG-UNIT Tablet 2 tablet Orally daily in AM, stop date 04/23/2019, Ferrous Sulfate 325 (65 Fe) MG Tablet Delayed Release 1 tablet Orally three times daily, Nadolol 40 MG Tablet 1 tablet Orally Once a day Social: denies etoh, tobacco, illicit drugs FHx: denies Surgical Hx: DEXA Scan - Osteopenia (10/04/18), Bone Marrow Aspiration (12/12/17), Upper GI Endoscopy - LA Grade C Esophagitis / Recently bleeding grade III esophageal varices, banded / Portal hypertensive gastropathy / non bleeding erosive gastropathy / Normal duodenal bulb & 2nd part of the duodenum (09/06/17) Past Patient History - Infectious Disease Hx of Infectious Diseases: None - Past Medical History & Family History Past Medical History?: Yes - Past Social History Alcohol: Social Drugs: Denies - CARDIAC Hx Hypertension: Yes - PULMONARY Hx Respiratory Disorders: No - NEUROLOGICAL Hx Neurological Disorder: No - HEENT Hx HEENT Problems: No - RENAL Hx Chronic Kidney Disease: No - ENDOCRINE/METABOLIC Hx Endocrine Disorders: No - HEMATOLOGICAL/ONCOLOGICAL Hx Human Immunodeficiency Virus (HIV): Yes - INTEGUMENTARY Hx Dermatological Problems: No - MUSCULOSKELETAL/RHEUMATOLOGICAL Hx Arthritis: Yes - GASTROINTESTINAL Hx Gastrointestinal Disorders: Yes Hx Esophageal Varices: Yes - GENITOURINARY/GYNECOLOGICAL Hx Genitourinary Disorders: No - PSYCHIATRIC Hx Depression: Yes - SURGICAL HISTORY Hx Surgeries: No - ANESTHESIA Hx Anesthesia: No Hx Anesthesia Reactions: No Hx Malignant Hyperthermia: No Meds Allergies/Adverse Reactions: Allergies Allergy/AdvReac Type Severity Reaction Status Date / Time No Known Allergies Allergy Verified 01/17/19 11:03 Physical Exam - Constitutional Appears: No Acute Distress - Head Exam Head Exam: ATRAUMATIC - Eye Exam Eye Exam: Normal appearance - ENT Exam ENT Exam: Mucous Membranes Dry - Respiratory Exam Respiratory Exam: NORMAL BREATHING PATTERN. absent: Respiratory Distress - GI/Abdominal Exam GI & Abdominal Exam: Soft. absent: Tenderness - Extremities Exam Extremities exam: Negative for: pedal edema - Neurological Exam Neurological exam: Alert, Oriented x3 - Psychiatric Exam Psychiatric exam: Normal Affect, Normal Mood - Skin Skin Exam: Dry, Intact, Pallor Results - Vital Signs Recent Vital Signs: Last Vital Signs Temp 98.5 F 01/17/19 14:20 Pulse 105 H 01/17/19 14:20 Resp 18 01/17/19 14:20 BP 111/64 01/17/19 14:20 Pulse Ox 99 01/17/19 12:50 - Labs Result Diagrams: 01/17/19 11:20 01/17/19 11:20 Labs: Laboratory Results - last 24 hr 01/17/19 01/17/19 01/17/19 11:11 11:20 11:20 WBC 1.1 L* RBC 3.44 L Hgb 5.9 L* Hct 21.1 L MCV 61.2 L MCH 17.3 L MCHC 28.3 L RDW 18.7 H Plt Count 51 L MPV 10.1 Neut % (Auto) 48.2 L Lymph % (Auto) 34.3 [place] % (Auto) 15.3 H Eos % (Auto) 1.6 Baso % (Auto) 0.6 Neut # (Auto) 0.5 L Lymph # (Auto) 0.4 L [place] # (Auto) 0.2 Eos # (Auto) 0.0 Baso # (Auto) 0.0 PT INR APTT Sodium Potassium Chloride Carbon Dioxide Anion Gap BUN Creatinine Est GFR ( Amer) Est GFR (Non-Af Amer) POC Glucose (mg/dL) 193 H Random Glucose Calcium Total Bilirubin AST ALT Alkaline Phosphatase Total Protein Albumin Globulin Albumin/Globulin Ratio Stool Occult Blood Blood Type O POSITIVE Antibody Screen Negative Crossmatch See Detail BBK History Checked Patient has bt 01/17/19 01/17/19 01/17/19 11:20 11:20 11:55 WBC RBC Hgb Hct MCV MCH MCHC RDW Plt Count MPV Neut % (Auto) Lymph % (Auto) [place] % (Auto) Eos % (Auto) Baso % (Auto) Neut # (Auto) Lymph # (Auto) [place] # (Auto) Eos # (Auto) Baso # (Auto) PT 13.0 INR 1.1 APTT 20.5 L Sodium 138 Potassium 4.0 Chloride 107 Carbon Dioxide 23 Anion Gap 12 BUN 14 Creatinine 1.1 Est GFR ( Amer) > 60 Est GFR (Non-Af Amer) > 60 POC Glucose (mg/dL) Random Glucose 176 H Calcium 8.5 Total Bilirubin 0.4 AST 27 ALT 33 Alkaline Phosphatase 101 Total Protein 7.8 Albumin 3.2 L Globulin 4.6 H Albumin/Globulin Ratio 0.7 L Stool Occult Blood Negative Blood Type Antibody Screen Crossmatch BBK History Checked Assessment & Plan - Assessment and Plan (Free Text) Assessment: 63-year-old patient with PMH of pancytopenia, cryptogenic cirrhosis, rheumatoid arthritis on chronic prednisone and HIV (on Truvada) was sent to [facility] ED from PCP (DR Holley) and Dr Nayak for Hg 6.1. Plan: Pancytopenia -WBC 1.1 -RBC 3.44 -Hg/Hct 5.9/21.1 -Admit for transfusion -4 units PRBC ordered in ED -Stool occult negative -Monitor vitals, CBC -Risks of untreated pancytopenia discussed and patient demonstrated verbal understanding HIV -TX in 1993 -Continue w/home meds - Truvada Hyperglycemia -Asymptomatic, monitor Cryptogenic cirrhosis -Chronic Rheumatoid Arthritis -Chronic -Continue with home meds <Shu Campbell - Last Filed: 01/24/19 10:10> Results - Vital Signs Recent Vital Signs: Last Vital Signs Temp 98.7 F 01/17/19 21:50 Pulse 92 H 01/17/19 21:50 Resp 18 01/17/19 21:50 BP 134/64 01/17/19 21:50 Pulse Ox 100 01/17/19 21:50 - Labs Result Diagrams: 01/17/19 11:20 01/17/19 11:20 Attending/Attestation - Attestation I have personally seen and examined this patient.: Yes I have fully participated in the care of the patient.: Yes I have reviewed all pertinent clinical information: Yes Notes (Text): 01/24/19 10:10 Agree with findings as above
[2019-01-17 20:32] VITALS: RESP 18; TEMP 98.7
--- NOTE | 2019-01-17 21:49 | CP.PCM.PCO ---
Assessment/Plan - Assessment and Plan (Free Text) Assessment: Patient signed AMA. Patient was explained about his symptoms, diagnosis and complications in great detail. The patient has the capacity to make this informed decision and understands my explanation of the current medical problem and risks of leaving, including worsening symptoms, and possibly . The patient voluntarily accepts these risks and signed an AMA form documenting our conversation; patient informed to follow up with PMD in 1-2days, The patient was given the opportunity to ask questions and reconsider. The patient was encouraged to return to the ER if symptoms worsen or new symptoms arise.
[2019-01-17 22:03] VITALS: BP 134/64; PULSE 92; O2SAT 100
[2019-01-18] MEDS ORDERED: Citracal+D 315mg/250IU PO SCH (08:00)
[2019-01-18] MEDS ORDERED: Patient's Own Med (Emtricitabine/Tenofov Alafenam [Descovy 200-25 Mg Tablet] 1 TAB) PO SCH (09:00)
[2019-01-21] MEDS ORDERED: Ergocalciferol 50,000 Intl Units Cap PO SCH (19:03)
--- NOTE | 2019-01-25 11:20 | PQF ---
PROVIDER RESPONSE TEXT: asymptomatic REVIEWER QUERY TEXT: HIV Clarification and Associated Conditions HIV (Human immunodeficiency virus) is documented in the medical record. Please specify the type Such as: -- Acquired immune deficiency syndrome [AIDS] -- [id number] complex [ARC] -- Symptomatic -- Asymptomatic -- With current or previous HIV-related condition (please specify related condition) -- Exposure to HIV -- Inconclusive serologic evidence of HIV -- Other, please specify Also please include any associated conditions, if applicable. The patient's Clinical Indicators include: ER DOCUMENTS " Hx. of HIV positive"; Note of 01/17 states " HIV - on Truvada". Please clarify if pt. diagnosis is HIV + or AIDS. Query created by: Selena Acosta on 01/21/2019 4:16 PM Electronically signed by: Shu Campbell MD 01/25/2019 11:16 AM
== END 2019-01-17 21:30 | disposition left against medical advice (07) | DRG 810 ==
LOC: H.ER 10:38 → H.ERHOLD 12:30
PROVIDERS: ADMIT Student in an Organized Health Care Education/Training Program; ATTEND Student in an Organized Health Care Education/Training Program
PROC: 30253N1 (ICD-10-PCS; principal; 2019-01-17)
DX: D61.818 Other pancytopenia (principal); K74.69 Other cirrhosis of liver; Z21 Asymptomatic human immunodeficiency virus [HIV] infection status; I10 Essential (primary) hypertension; M06.9 Rheumatoid arthritis, unspecified; M19.90 Unspecified osteoarthritis, unspecified site; Z79.52 Long term (current) use of systemic steroids